=== PATIENT | male | born 1960 | race Two or more races ===

== ENCOUNTER → 2020-03-10 10:13 | Outpatient (BNVA) | payer MEDICARE, MEDICAID, SELFPAY | PROVIDERS: PCP Internal Medicine; Visit Provider Surgery | DX: Z85.038 Personal history of other malignant neoplasm of large intestine (principal) | CPT/HCPCS: 99212 ==

== ENCOUNTER 2020-05-19 09:41 | Outpatient (REF) | payer MEDICARE, MEDICAID, SELFPAY ==
[2020-05-19 10:44] LABS: Alanine Aminotransferase 31 U/L (0-40); Albumin Level 4.5 g/dL (3.5-5.0); Alkaline Phosphatase 68 U/L (39-117); Anion Gap 10 (12-20); Aspartate Amino Transferase 24 U/L (5-37); Blood Urea Nitrogen 15 mg/dL (9-16); Calcium 9.3 mg/dL (8.4-10.2); Carbon Dioxide 28 mmol/L (22-29); Chloride 105 mmol/L (96-108); Cholesterol 135 mg/dL; Estimated Glomerular Filt Rate > 60; Glucose Fasting 114 mg/dL (60-99); HDL Cholesterol 42 mg/dL; LDL Cholesterol Calculated 58 mg/dl; Potassium 3.9 mmol/L (3.3-5.1); Sodium 139 mmol/L (135-145); Total Protein 7.1 g/dL (6.5-8.0); Triglycerides 177 mg/dL
== END 2020-05-19 09:42 | disposition home or self-care (01) ==
LOC: HO.LAB 09:41
PROVIDERS: PCP Internal Medicine; Visit Provider Internal Medicine
DX: E78.00 Pure hypercholesterolemia, unspecified (principal); N52.9 Male erectile dysfunction, unspecified; I10 Essential (primary) hypertension
CPT/HCPCS: 36415; 80053; 80061

== ENCOUNTER 2020-08-28 09:11 | Outpatient (REF) | payer OTHER, SELFPAY ==
[2020-08-28 10:36] LABS: Alanine Aminotransferase 29 U/L (0-40); Albumin Level 4.4 g/dL (3.5-5.0); Alkaline Phosphatase 65 U/L (39-117); Anion Gap 12 (12-20); Aspartate Amino Transferase 22 U/L (5-37); Bilirubin Total 0.5 mg/dL (0.0-1.0); Blood Urea Nitrogen 18 mg/dL (9-16); Calcium 9.4 mg/dL (8.4-10.2); Carbon Dioxide 27 mmol/L (22-29); Chloride 106 mmol/L (96-108); Cholesterol 135 mg/dL; Estimated Glomerular Filt Rate > 60; Glucose Fasting 108 mg/dL (60-99); HDL Cholesterol 45 mg/dL; LDL Cholesterol Calculated 51 mg/dl; Potassium 4.3 mmol/L (3.3-5.1); Sodium 141 mmol/L (135-145); Total Protein 6.9 g/dL (6.5-8.0); Triglycerides 199 mg/dL
[2020-08-28 10:59] LABS: PSA,Total (Free>4and<10) 0.83 ng/mL (0.00-4.00)
== END 2020-08-28 09:12 | disposition home or self-care (01) ==
LOC: HO.LAB 09:11
PROVIDERS: PCP Internal Medicine; Visit Provider Internal Medicine
DX: Z12.5 Encounter for screening for malignant neoplasm of prostate (principal); E78.5 Hyperlipidemia, unspecified; I10 Essential (primary) hypertension
CPT/HCPCS: 36415; 80053; 80061; 84153

== ENCOUNTER → 2020-09-01 09:49 | Outpatient (BNV) | payer OTHER, SELFPAY | PROVIDERS: PCP Internal Medicine; Visit Provider Internal Medicine | DX: Z85.038 Personal history of other malignant neoplasm of large intestine (principal) | CPT/HCPCS: 99213 ==

== ENCOUNTER 2020-09-23 10:16 | Outpatient (REF) | payer OTHER, SELFPAY ==
[2020-09-27 13:26] LABS: Vitamin D 25-OH, D2 <4 ng/mL; Vitamin D 25-OH, D3 36 ng/mL; Vitamin D 25-OH, Total 36 ng/mL (30-100)
== END 2020-09-23 10:17 | disposition home or self-care (01) ==
LOC: HO.LAB 10:16
PROVIDERS: PCP Internal Medicine; Visit Provider Internal Medicine
DX: E55.9 Vitamin D deficiency, unspecified (principal)
CPT/HCPCS: 36415; 82306

== ENCOUNTER 2020-10-03 11:21 | Emergency (ER) | payer OTHER, SELFPAY ==
[2020-10-03 12:13] VITALS: BP 186/78; PULSE 78; RESP 17; TEMP 36.8; O2SAT 97; BMI 30.9
[2020-10-03 12:45] VITALS: BP 156/73; PULSE 74; RESP 18; TEMP 36.9; O2SAT 97
[2020-10-03 13:08] LABS: MANUAL DIFF FLAG NO
[2020-10-03 13:09] LABS: Basophils Percent Auto 0.3 % (0-2); Eosinophils Absolute Auto 0.1 X10*3/uL (0.0-0.4); Eosinophils Percent Auto 1.5 % (0-4); Hematocrit 38.3 % (42-52); Hemoglobin 13.5 g/dl (14.0-18.0); Imm Gran Abs Auto 0.01 X10*3/uL (0.00-0.03); Imm Gran Pct Auto 0.2 % (0.0-0.4); Lymphocytes Absolute Auto 1.5 X10*3/uL (1.2-4.9); Lymphocytes Percent Auto 24.6 % (20-40); Mean Corpuscular HGB Conc 35.2 g/dl (31.0-36.0); Mean Corpuscular Hemoglobin 32.5 pg (27.0-33.0); Mean Corpuscular Volume 92.1 fL (80-98); Mean Platelet Volume 8.9 fL (9.4-12.4); Monocytes Absolute Auto 0.7 X10*3/uL (0.1-1.2); Monocytes Percent Auto 10.7 % (2-11); Neutrophils Absolute Auto 3.9 X10*3/uL (2.0-8.3); Neutrophils Percent Auto 62.7 % (45-73); Platelet Count 200 X10*3/uL (160-400); Red Blood Count 4.16 X10*6/uL (4.60-5.80); Red Cell Distribution Width 11.5 % (11.0-16.0); White Blood Count 6.2 X10*3/uL (4.8-10.8)
[2020-10-03 13:18] LABS: Prothrombin Time 11.5 SEC (9.9-13.0)
[2020-10-03 13:22] LABS: D Dimer < 200 NG/ML; Partial Thromboplastin Time 32.1 SEC (24.1-38.0)
[2020-10-03 13:35] LABS: IDNOW Serial# 9DD0AD1C; Strep A Nucleic Acid Negative (Negative)
[2020-10-03 13:45] LABS: Alanine Aminotransferase 30 U/L (0-40); Albumin Level 4.3 g/dL (3.5-5.0); Alkaline Phosphatase 73 U/L (39-117); Anion Gap 15 (12-20); Aspartate Amino Transferase 22 U/L (5-37); Bilirubin Total 0.5 mg/dL (0.0-1.0); Blood Urea Nitrogen 16 mg/dL (9-16); C Reactive Protein 0.18 mg/dL (< or = 0.50); Calcium 9.4 mg/dL (8.4-10.2); Carbon Dioxide 25 mmol/L (22-29); Chloride 104 mmol/L (96-108); Creatinine Clr Calc Pharmacy 96.8; Estimated Glomerular Filt Rate > 60; Glucose Random 133 mg/dL (60-115); Lipase 67 U/L (8-78); Potassium 3.5 mmol/L (3.3-5.1); Sodium 140 mmol/L (135-145); Total Protein 6.9 g/dL (6.5-8.0)
--- NOTE | 2020-10-03 13:48 | ED.GENADULT ---
HPI - General Adult General Chief complaint: General Medical Stated complaint: blood in mouth Time Seen by Provider: 10/03/20 12:25 Source: patient Mode of arrival: ambulatory Limitations: no limitations History of Present Illness HPI narrative: 60-year-old male who presents emergency department for evaluation of spitting up blood. The patient states that over the past 2-3 days he has been spitting up small amounts of blood. He states that he has been doing this 5 to 6 times a day. The patient states that has a slight sore throat and a very dry mouth. Patient was started on cyclobenzaprine for a right arm injury and he states that he took this for approximately 3 days and then stop the medicine once he started spitting up blood. He states that he is feeling and fatigued. He denied fever, chills, chest pain, shortness of breath, cough, dyspnea on exertion, abdominal pain. He states that he has occasional heartburn like symptoms but has not had any recently. He denies any change in his bowel movements, he has not noticed any bright blood ride per rectum or dark stools. Denies easy bruisability, he has not had any bleeding from his gums. The patient has a history of colon cancer with tubular adenoma and sigmoid colon resection May 2015. Patient states he was experiencing fatigue and right arm weakness since receiving his [employer] COVID-19 vaccination in June 2020. He had a hematology evaluation Dr. Bess on 09/01/2020 with no evidence for anemia or hypothyroidism as the cause of his fatigue Related Data Previous Rx's Medication Instructions Recorded hydralazine 100 mg tablet 100 mg PO BID #180 tab 05/07/20 blood pressure test kit-large #1 ea 05/28/20 atorvastatin 20 mg tablet 20 mg PO DAILY #90 tab 06/02/20 hydrochlorothiazide 25 mg tablet 25 mg PO QAM #90 tab 06/02/20 losartan 100 mg tablet 100 mg PO DAILY #90 tab 06/02/20 aspirin 81 mg tablet,delayed 81 mg PO DAILY #90 tab 07/29/20 release tramadol 50 mg tablet 50 mg PO Q6H PRN 30 Days #120 tab 09/17/20 cyclobenzaprine 10 mg tablet 10 mg PO BEDTIME PRN 30 Days #30 09/23/20 tab Allergies Allergy/AdvReac Type Severity Reaction Status Date / Time acetaminophen [Tylenol] Allergy Intermediate itching Verified 10/03/20 12:13 ibuprofen Allergy Intermediate itching Verified 10/03/20 12:13 Review of Systems Review of Systems: Yes all other systems are reviewed and are negative [facility] Past Medical History [facility] Narrative: Social history: The patient stop smoking cigarettes in 2014. prior to that he smoked 1/3 pack of cigarettes per day times 40 years. He denies alcohol use. He denies drug use. Medical History Erectile dysfunction Essential hypertension Lumbar degenerative disc disease Medicare annual wellness visit, initial Pure hypercholesterolemia Surgical History History of back surgery History of colon cancer History of colonoscopy Family History Family History Father Myocardial infarction Mother Hypertension COPD (chronic obstructive pulmonary disease) Daughter Hypertension Heart problem Maternal Grandmother CAD (coronary artery disease) Stroke Paternal Grandfather Myocardial infarction Brother In good health Brother In good health Sister In good health Sister In good health Sister In good health Daughter In good health Daughter In good health Daughter In good health Social History Social History Housing: Apartment Alcohol intake: never Patient Tobacco Use Status: Former Tobacco user Tobacco use type: Cigarette e-Cigarette/Vaping Use: Never Used Second Hand Smoke Exposure: No Use of substances other than those prescribed or required for medical reasons: No Advance Directives: Yes Advance Directives Information Provided: Yes Advance Directives on File: No service: No Current occupational status: disabled Physical Exam Vital Signs: Vital Signs: Last Vital Signs Temp 98.4 F 10/03/20 12:45 Pulse 74 10/03/20 12:45 Resp 18 10/03/20 12:45 BP 156/73 H 10/03/20 12:45 Pulse Ox 97 10/03/20 12:45 Body Mass Index 30.9 Const: General: cooperative and healthy appearing Orientation/consciousness: oriented to person and oriented to place Limitations: no limitations HENMT: Head: Yes normal to inspection, Yes normocephalic and Yes atraumatic Ears: external ears normal General nose exam: Normal external nose present Face and sinus: Yes normal facial exam Mouth: Normal oral and palatal mucosa present Throat: Yes posterior oropharynx normal Eyes: Periorbital: periorbital findings normal Eyelids: Yes eyelids normal Conjunctivae: conjunctivae normal Sclerae: sclerae normal Corneas: corneas normal Pupils: Equal, round and reactive pupils present Direct Ophthalmoscopy: normal light reflex Neck: Neck: Yes full ROM, Yes no lymphadenopathy, Yes no meningeal signs, Yes trachea midline and Yes supple Chest: Chest palpation & inspection: normal inspection of the chest and normal palpation of entire chest wall Resp: Effort & Inspection: normal respiratory effort and able to speak in complete sentences Auscultation: clear to auscultation bilaterally Cardio: Rate: regular rate Rhythm: regular rhythm Heart sounds: S1 normal heart sound present, S2 normal heart sound present and no murmurs GI: Inspection: Yes normal to inspection Palpation (GI): Soft to palpation, nontender, no guarding, not rigid and No hepatosplenomegaly present : General: Yes no CVA tenderness Back/Spine/Pelvis: Back: no CVA tenderness Cervical Spine: normal cervical lordosis Thoracic/Lumbar Spine: thoracic and lumbar spine normal to inspection Skin: Lesions: no lesions Rashes: no rashes Wounds: no wounds Neuro: General: oriented to person, oriented to place and no meningeal signs Cranial nerves: Yes CN's II-XII intact bilaterally and Yes Equal, round and reactive pupils present Cognition (Neuro): normal cognition Motor exam (neuro): 5/5 motor strength present throughout Extrem: General: Yes normal to inspection and Yes full ROM Psych: Appearance: well kempt Mental Status: mental status grossly normal Speech and movement: Normal speech and movement present Affect: normal affect Attitude: cooperative Thought process: Normal thought process present Thought content: Normal thought content present Course Course Course Narrative: 60-year-old male who presents emergency department for evaluation of spitting up blood x2 days. 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 Patient was started on cyclobenzaprine recently and he stop this medicine 2 days prior when he started to cough of blood. Patient has had no other symptoms except for mild sore throat. He has not had any easy bruisability or bleeding from his gums. Patient's physical examination was unremarkable with no evidence of bruising or petechiae. I did order laboratory evaluation on this patient. 1359: The patient has mild anemia with an H&H of 13.5 and 38.3. Patient's white blood cell count was normal 6200 his platelet count was also normal at 2000. Coagulation studies including PT/INR, PTT and D-dimer were normal. The patient's comprehensive metabolic panel was normal. TSH was slightly low at 0.17 with a pending T4. At this time, I do not have a clear etiology for the patient's spitting up blood, I do not think it is related to cyclobenzaprine unless the cyclobenzaprine is causing him to have pharyngeal dryness which is then causing and a cough up blood. The patient's most likely source of esophagitis versus gastritis and I did discuss this with him. I will start him on Prilosec 20 mg once a day for 1 month. He will need to follow-up with his PCP for re-evaluation and to follow-up on his T4. The patient was given verbal and printed instructions prior to discharge. The patient was advised to follow-up with their PCP in 2 days and to return to the emergency department if their symptoms get worse or if they develop any new symptoms that are concerning to them. Medical Decision Making Lab Data Result diagrams: 10/03/20 13:00 10/03/20 13:00 Labs: Lab Results 10/03/20 10/03/20 10/03/20 Range/Units 13:00 13:00 13:00 WBC 6.2 (4.8-10.8) X10*3/uL RBC 4.16 L (4.60-5.80) X10*6/uL Hgb 13.5 L (14.0-18.0) g/dl Hct 38.3 L (42-52) % MCV 92.1 (80-98) fL MCH 32.5 (27.0-33.0) pg MCHC 35.2 (31.0-36.0) g/dl RDW 11.5 (11.0-16.0) % Plt Count 200 (160-400) X10*3/uL MPV 8.9 L (9.4-12.4) fL Immature Gran % (Auto) 0.2 (0.0-0.4) % Neut % (Auto) 62.7 (45-73) % Lymph % (Auto) 24.6 (20-40) % Kimble % (Auto) 10.7 (2-11) % Eos % (Auto) 1.5 (0-4) % Baso % (Auto) 0.3 (0-2) % Lymph # (Auto) 1.5 (1.2-4.9) X10*3/uL Kimble # (Auto) 0.7 (0.1-1.2) X10*3/uL Eos # (Auto) 0.1 (0.0-0.4) X10*3/uL Baso # (Auto) 0.0 (0.0-0.2) X10*3/uL Abs Immat Gran (auto) 0.01 (0.00-0.03) X10*3/uL Absolute Neuts (auto) 3.9 (2.0-8.3) X10*3/uL Absolute Nucleated RBC 0.000 (0.0-0.012) X10*3/uL Nucleated RBC % (auto) 0.0 (0.0-0.2) /100WBC PT 11.5 (9.9-13.0) SEC INR 1.0 (0.9-1.1) APTT 32.1 (24.1-38.0) SEC D-Dimer < 200 NG/ML Sodium 140 (135-145) mmol/L Potassium 3.5 (3.3-5.1) mmol/L Chloride 104 (96-108) mmol/L Carbon Dioxide 25 (22-29) mmol/L Anion Gap 15 (12-20) BUN 16 (9-16) mg/dL Creatinine 1.05 (0.5-1.4) mg/dL Estim Creat Clear Calc 96.8 Estimated GFR > 60 Random Glucose 133 H (60-115) mg/dL Calcium 9.4 (8.4-10.2) mg/dL Total Bilirubin 0.5 (0.0-1.0) mg/dL AST 22 (5-37) U/L ALT 30 (0-40) U/L Alkaline Phosphatase 73 (39-117) U/L C-Reactive Protein 0.18 (< or = 0.50) mg/dL Total Protein 6.9 (6.5-8.0) g/dL Albumin 4.3 (3.5-5.0) g/dL Lipase 67 (8-78) U/L S. pyogenes GrpA GARRETT (Negative) 10/03/20 Range/Units 13:22 WBC (4.8-10.8) X10*3/uL RBC (4.60-5.80) X10*6/uL Hgb (14.0-18.0) g/dl Hct (42-52) % MCV (80-98) fL MCH (27.0-33.0) pg MCHC (31.0-36.0) g/dl RDW (11.0-16.0) % Plt Count (160-400) X10*3/uL MPV (9.4-12.4) fL Immature Gran % (Auto) (0.0-0.4) % Neut % (Auto) (45-73) % Lymph % (Auto) (20-40) % Kimble % (Auto) (2-11) % Eos % (Auto) (0-4) % Baso % (Auto) (0-2) % Lymph # (Auto) (1.2-4.9) X10*3/uL Kimble # (Auto) (0.1-1.2) X10*3/uL Eos # (Auto) (0.0-0.4) X10*3/uL Baso # (Auto) (0.0-0.2) X10*3/uL Abs Immat Gran (auto) (0.00-0.03) X10*3/uL Absolute Neuts (auto) (2.0-8.3) X10*3/uL Absolute Nucleated RBC (0.0-0.012) X10*3/uL Nucleated RBC % (auto) (0.0-0.2) /100WBC PT (9.9-13.0) SEC INR (0.9-1.1) APTT (24.1-38.0) SEC D-Dimer NG/ML Sodium (135-145) mmol/L Potassium (3.3-5.1) mmol/L Chloride (96-108) mmol/L Carbon Dioxide (22-29) mmol/L Anion Gap (12-20) BUN (9-16) mg/dL Creatinine (0.5-1.4) mg/dL Estim Creat Clear Calc Estimated GFR Random Glucose (60-115) mg/dL Calcium (8.4-10.2) mg/dL Total Bilirubin (0.0-1.0) mg/dL AST (5-37) U/L ALT (0-40) U/L Alkaline Phosphatase (39-117) U/L C-Reactive Protein (< or = 0.50) mg/dL Total Protein (6.5-8.0) g/dL Albumin (3.5-5.0) g/dL Lipase (8-78) U/L S. pyogenes GrpA GARRETT Negative (Negative) Discharge Plan Discharge Clinical Impression: Hematemesis of unknown etiology Patient Disposition: Home, Self-Care Instructions: Hematemesis (ED) Additional Instructions: Your blood work was unremarkable except for a slightly low TSH (low TSH was suggest an overactive thyroid). Your T4 which is another thyroid test determine if her thyroid is under overactive is pending. He will need to follow-up to checked this result. I do not think that your thyroid is the cause for your spitting up blood or your fatigue but she need to discuss this with your doctor once the T4 result comes back. The rest of your blood work was normal. I believe that your spitting up blood is probably coming from either your esophagus (food tube) or stomach and this is called hematemesis which is most likely caused by too much stomach acid. Take Prilosec 20 mg pills, 1 pill daily for 1 month, this will shut off your acid production and let the inflammation in your GI tract heel. Do not take any aspirin, ibuprofen, Motrin, Advil, Aleve or naproxen while your on Prilosec. You can take Tylenol for pain. Follow-up with your doctor in 2 days. Please return to the emergency department if your symptoms get worse or if you develop any symptoms that are concerning to you. Prescriptions: No Action hydralazine 100 mg tablet 100 mg PO BID Qty: 180 RF: 2 hydrochlorothiazide 25 mg tablet 25 mg PO QAM Qty: 90 RF: 3 losartan 100 mg tablet 100 mg PO DAILY Qty: 90 RF: 3 atorvastatin 20 mg tablet 20 mg PO DAILY Qty: 90 RF: 3 aspirin 81 mg tablet,delayed release (DR/EC) 81 mg PO DAILY Qty: 90 RF: 3 tramadol 50 mg tablet 50 mg PO Q6H PRN (Reason: pain) 30 Days Qty: 120 RF: 0 cyclobenzaprine 10 mg tablet 10 mg PO BEDTIME PRN (Reason: muscle spasm) 30 Days Qty: 30 RF: 0 (DME) blood pressure test kit-large Kit See Rx Instructions .ROUTE .MEDSUPPLY Qty: 1 RF: 0
[2020-10-03 13:56] LABS: TSH reflex Free T4 0.17 uIU/mL (0.32-4.0)
[2020-10-03 13:57] LABS: Erythrocyte Sedimentation Rate 13 MM/HR (0-15)
[2020-10-03 14:36] LABS: Free T4 (Free Thyroxine) 0.92 ng/dL (0.71-1.85)
== END 2020-10-03 14:24 | disposition home or self-care (01) ==
PROVIDERS: Emergency Provider Emergency Medicine Emergency Medical Services; PCP Internal Medicine
DX: K92.0 Hematemesis (principal); D64.9 Anemia, unspecified; I10 Essential (primary) hypertension; Z79.82 Long term (current) use of aspirin; Z79.899 Other long term (current) drug therapy; Z85.038 Personal history of other malignant neoplasm of large intestine
CPT/HCPCS: 36415; 80053; 83690; 84439; 84443; 85025; 85379; 85610; 85652; 85730; 86140; 87651; 99283; 99284

== ENCOUNTER 2020-11-11 10:08 | Outpatient (REF) | payer OTHER, SELFPAY ==
[2020-11-11 12:24] LABS: Anion Gap 13 (12-20); Blood Urea Nitrogen 18 mg/dL (9-16); Calcium 9.7 mg/dL (8.4-10.2); Carbon Dioxide 28 mmol/L (22-29); Chloride 102 mmol/L (96-108); Estimated Glomerular Filt Rate > 60; Glucose Random 158 mg/dL (60-115); Potassium 4.3 mmol/L (3.3-5.1); Sodium 139 mmol/L (135-145)
== END 2020-11-11 10:09 | disposition home or self-care (01) ==
LOC: HO.CT 10:08
PROVIDERS: Visit Provider Physician Assistant
DX: Z01.812 Encounter for preprocedural laboratory examination (principal); R04.2 Hemoptysis
CPT/HCPCS: 36415; 80048

== ENCOUNTER 2020-11-13 07:51 | Outpatient (REF) | payer OTHER, SELFPAY ==
--- NOTE | ~2020-11-13 | CT_ITS ---
EXAMINATION: CT CHEST WITH CONTRAST CLINICAL INFORMATION: Hemoptysis. COMPARISON: CT chest dated 02/03/2017. TECHNIQUE: Multidetector volumetric CT imaging of the chest was obtained after the administration of 65 mL of Omnipaque 350 intravenous contrast without immediate adverse reactions. Axial MIP volume rendering provided. Sagittal and coronal reformatted images were obtained. This CT examination was performed using dose optimization techniques as appropriate, variously including the following: *Automated exposure control *Adjustment of mA and/or kV according to patient size (this includes techniques or standardized protocols for targeted exams where dose is matched to indication/reason for exam; i.e. extremities or head) *Use of iterative reconstruction technique DLP: 193 mGy-cm. FINDINGS: PHOTOGRAPHER: Unremarkable. LUNGS: Biapical blebs are redemonstrated. No new pulmonary nodule, mass, or airspace consolidation. Stable calcified granuloma within the left upper lobe. The central airways are patent. MEDIASTINUM: No cardiomegaly. No pericardial effusion. No thoracic aortic dilatation or dissection. Unremarkable central pulmonary arteries. Stable right hilar and prevascular lymph nodes. No new or increasing lymphadenopathy. PLEURA: There is no pleural effusion. No pleural mass or thickening. AXILLA: No lymphadenopathy. UPPER ABDOMEN: Hepatic steatosis. Right hepatic hypodensity, unchanged. Otherwise, the visualized upper abdominal structures are unremarkable. OSSEOUS STRUCTURES: Unremarkable. CT/CT chest w con IMPRESSION: 1. Biapical pulmonary blebs are unchanged. Stable left upper lobe calcified granuloma. No new urinary nodule, mass, or airspace consolidation. 2. No new or increasing lymphadenopathy. 3. Hepatic steatosis.
[2020-11-13] MEDS: iohexoL 350 MG/ML 100 ML INFUS..BTL IV (08:37)
== END 2020-11-13 07:52 | disposition home or self-care (01) ==
LOC: HO.CT 07:51
PROVIDERS: Visit Provider Physician Assistant
DX: R04.2 Hemoptysis (principal)
CPT/HCPCS: 71260; Q9967

== ENCOUNTER → 2020-12-23 09:20 | Outpatient (BNVA) | payer OTHER, SELFPAY | PROVIDERS: PCP Internal Medicine; Referring Provider Internal Medicine; Visit Provider Internal Medicine | DX: I77.810 Thoracic aortic ectasia (principal); I51.7 Cardiomegaly; I10 Essential (primary) hypertension | CPT/HCPCS: 93005; 99212 ==

== ENCOUNTER 2021-01-08 08:21 | Day surgery (SDC) | payer OTHER, SELFPAY ==
[2021-01-04 15:33] VITALS: BMI 30.7
--- NOTE | 2021-01-07 10:42 | HO.ANESPROP2 ---
Documented by User: Maira Mullins NP 01/07/21 10:44 HPI - Anesthesia Eval Consult details Narrative: 60yo M for Colonoscopy Stable at yearly cardiac office visit 12/23/20 [facility] Active Problems Active Problems: All Active Problems (Updated 01/04/21 @ 15:35 by Kera Fischer, LINDA) Colon cancer (Chronic) Hemoptysis (Acute) Hematemesis (Acute) Pre-procedure lab exam (Acute) Essential (primary) hypertension (Acute) Ascending aorta dilatation (Acute) LVH (left ventricular hypertrophy) (Acute) Medicare annual wellness visit, initial (Acute) Lumbar degenerative disc disease (Acute) Pure hypercholesterolemia (Acute) Erectile dysfunction (Acute) Essential hypertension (Acute) Past Medical History Medical History COVID-19 vaccine series completed Erectile dysfunction Essential hypertension GERD (gastroesophageal reflux disease) Lumbar degenerative disc disease Medicare annual wellness visit, initial Pure hypercholesterolemia Family History Family History Father Myocardial infarction Mother Hypertension COPD (chronic obstructive pulmonary disease) Daughter Hypertension Heart problem Maternal Grandmother CAD (coronary artery disease) Stroke Paternal Grandfather Myocardial infarction Brother In good health Brother In good health Sister In good health Sister In good health Sister In good health Daughter In good health Daughter In good health Daughter In good health Surgical History Surgical History History of back surgery History of colon cancer History of colon resection History of colonoscopy Social History Social History Housing: Apartment Are you a primary acute care occupational therapist to a significant other at home: No Do you presently have visiting nurse or other home services: No Alcohol intake: never Patient Tobacco Use Status: Former Tobacco user Quit Date: 2014 Tobacco use type: Cigarette e-Cigarette/Vaping Use: Never Used Second Hand Smoke Exposure: No Use of substances other than those prescribed or required for medical reasons: No Have you been hit, kicked, punched, or otherwise hurt by someone within the past year? If so, by whom?: No Are you DNR?: No Advance Directives: No Advance Directives Information Provided: No Advance Directives on File: No Recently lost weight without trying: No Eating poorly because of decreased appetite: No Nutrition Risks: No Nutritional Risk service: No Current occupational status: disabled Meds Allergies Allergy/AdvReac Type Severity Reaction Status Date / Time acetaminophen [Tylenol] Allergy Intermediate itching Verified 10/12/20 15:40 ibuprofen Allergy Intermediate itching Verified 10/12/20 15:40 Home Medications Medication Instructions Recorded Confirmed Last Taken Type aspirin 81 mg tablet,delayed 81 mg PO DAILY 12/23/20 01/04/21 Unknown History release zimffzadaidd-If-bhba-minerals 18 1 tab PO DAILY 12/23/20 01/04/21 Unknown History mg-0.4 mg tablet (Maximum Daily Multivitamin) vitamin E 200 unit capsule 200 unit PO DAILY 12/23/20 01/04/21 Unknown History Exam Exam Date and Time: January 07, 2021 1042 Height,Weight and Vital Signs: Height 6 ft 1 in Weight 105.687 kg Pertinent Lab Results Pertinent Lab Results: Laboratory Tests 10/03/20 11/11/20 13:00 10:32 WBC 6.2 Hgb 13.5 L Hct 38.3 L Plt Count 200 Sodium 139 Potassium 4.3 D Chloride 102 Carbon Dioxide 28 BUN 18 H Creatinine 1.10 Narrative Narrative: EKG 12/2020 sinus rhythm at 79/Min; cannot exclude old inferior infarct; normal ID/QTc Echo 12/2019 Nml LV systolic function with moderate LVH with Grade 1 DD Nml cardiac valve doppler Mild dilated ascending aorta No gross pericardial effusion Assessment and Plan Assessment Anesthesia Assessment: Chart Reviewed Documented by User: Alexa Mccracken MD 01/08/21 08:55 [facility] Past Medical History Medical History COVID-19 vaccine series completed Erectile dysfunction Essential hypertension GERD (gastroesophageal reflux disease) Lumbar degenerative disc disease Medicare annual wellness visit, initial Pure hypercholesterolemia Family History Family History Father Myocardial infarction Mother Hypertension COPD (chronic obstructive pulmonary disease) Daughter Hypertension Heart problem Maternal Grandmother CAD (coronary artery disease) Stroke Paternal Grandfather Myocardial infarction Brother In good health Brother In good health Sister In good health Sister In good health Sister In good health Daughter In good health Daughter In good health Daughter In good health Family history of problems with anesthesia: No Surgical History Surgical History History of back surgery History of colon cancer History of colon resection History of colonoscopy History of Problems with Anesthesia: No Social History Social History Housing: Apartment Are you a primary acute care occupational therapist to a significant other at home: No Do you presently have visiting nurse or other home services: No Alcohol intake: never Patient Tobacco Use Status: Former Tobacco user Quit Date: 2014 Tobacco use type: Cigarette e-Cigarette/Vaping Use: Never Used Second Hand Smoke Exposure: No Use of substances other than those prescribed or required for medical reasons: No Have you been hit, kicked, punched, or otherwise hurt by someone within the past year? If so, by whom?: No Are you DNR?: No Advance Directives: No Advance Directives Information Provided: No Advance Directives on File: No Recently lost weight without trying: No Eating poorly because of decreased appetite: No Nutrition Risks: No Nutritional Risk service: No Current occupational status: disabled Meds Allergies Allergy/AdvReac Type Severity Reaction Status Date / Time acetaminophen [Tylenol] Allergy Intermediate itching Verified 10/12/20 15:40 ibuprofen Allergy Intermediate itching Verified 10/12/20 15:40 Home Medications Medication Instructions Recorded Confirmed Last Taken Type aspirin 81 mg tablet,delayed 81 mg PO DAILY 12/23/20 01/04/21 Unknown History release urjzkgdpclfz-Ww-pbml-minerals 18 1 tab PO DAILY 12/23/20 01/04/21 Unknown History mg-0.4 mg tablet (Maximum Daily Multivitamin) vitamin E 200 unit capsule 200 unit PO DAILY 12/23/20 01/04/21 Unknown History Exam Airway Mallampati Class: II TM Dist: >3cm Neck ROM: Full Assessment and Plan Assessment Anesthesia Assessment: Anesthesia Plan Discussed Final Anesthetic Review Family History of Problems with Anesthesia: No History of Problems with Anesthesia: No NPO: Yes ASA Class: III Final Preanesthetic Review: No Changes in Pt Med Stat, Meds/Allgs Chart Reviewed, Consent Obtained/Reviewed and Anes Risks/Benef Reviewed Patient Risk: Intermediate Procedure Risk: Low Assessment/Block/Sedation in SS: Assess/Block/Sedation-SS Anesthetic Plan Anesthetic Plan: MAC: Disposition: Standard PACU
[2021-01-08 09:07] VITALS: BP 150/68; PULSE 66; RESP 15; TEMP 36.9; O2SAT 97; BMI 30.9
[2021-01-08] MEDS: Lactated Ringers 1,000 ML 100 ML IVCONT (09:21)
[2021-01-08 10:14] VITALS: BP 107/51; PULSE 71; RESP 16; TEMP 36.5; O2SAT 98
--- NOTE | 2021-01-08 10:16 | P.BOP_ITS ---
Brief Operative Note Date of Service: 01/08/21 Pre-op diagnosis: Screening Post-op diagnosis: other (Colon polyp) Procedure: Colonoscopy to cecum with snare polypectomy Surgeon: Handy Mendez Anesthesia: MAC Was an Figure Refinisher And Repairer used for this Procedure?: No Estimated blood loss (mL): 3.0 Pathology: other (A. Transverse colon) Condition: stable Disposition: PACU
[2021-01-08 10:28] VITALS: BP 114/68; PULSE 74; RESP 16; TEMP 36.5; O2SAT 96
--- NOTE | 2021-01-08 11:47 | OP_ITS ---
SURGEON: Handy Mendez MD INDICATIONS: The patient presents for followup of colorectal cancer screening, personal history of colon cancer, and personal history of colon polyps. Full consent has been obtained from him for this, including risks of bleeding and perforation. PREOPERATIVE DIAGNOSIS: POSTOPERATIVE DIAGNOSIS: PROCEDURE PERFORMED: Colonoscopy to the cecum with snare polypectomy. ESTIMATED BLOOD LOSS: COMPLICATIONS: ANESTHESIA: Monitored anesthesia care. ASSISTANTS: SPECIMENS: PREOPERATIVE DIAGNOSES: Colorectal cancer screening, personal history of colon cancer, personal history of tubular adenoma of the colon. POSTOPERATIVE DIAGNOSES: Colorectal cancer screening, personal history of colon cancer, personal history of tubular adenoma of the colon, colon polyp, diverticulosis, normal anastomosis, internal hemorrhoids. DESCRIPTION OF PROCEDURE: The patient was placed in the left lateral decubitus position. The digital rectal exam revealed no abnormalities. The Olympus video pediatric colonoscope was entered into the rectum and advanced easily to the cecum. Once in the cecum, I did identify normal-appearing cecal pouch with appendiceal orifice and a normal-appearing ileocecal valve. The entire cecum and ileocecal valve appeared normal, although there were several diverticula noted in the cecum. The scope was slowly withdrawn assessing all mucosal surfaces carefully. Preparation was excellent. There was a mild amount of diverticulosis in the ascending colon. There was a moderate amount of diverticulosis noted in the descending colon and proximal to the anastomosis. In the transverse colon, was an approximately 5 mm polyp, which was snared and removed with a cold snare. There was no sign of any residual polyp nor bleeding. I did not visualize any other polyps, colitis, nor angiodysplasia. The anastomosis appeared normal at 20 cm. In the rectum, scope was retroflexed visualizing internal hemorrhoids, but no other pathology. The rectal mucosa appeared normal. The scope was straightened and withdrawn from the patient. He tolerated the procedure well and was returned to the recovery area in stable condition. IMPRESSION: 1. Colon polyp, status post snare polypectomy. 2. Diverticulosis. 3. Internal hemorrhoids. 4. Normal anastomosis. PLAN: The results of the pathology will be checked. I would recommend a repeat colonoscopy in 3 years for further screening and surveillance. He was advised to resume his aspirin in 72 hours. MD KIAN Levi/YOHANNES / [id number]
== END 2021-01-08 11:57 | disposition home or self-care (01) ==
PROVIDERS: PCP Internal Medicine; Visit Provider Internal Medicine
PROC: 0DJD8ZZ Inspection of Lower Intestinal Tract, Via Natural or Artificial Opening Endoscopic (ICD-10-PCS; CPT 45378; principal; 2021-01-08 09:20)
DX: Z12.11 Encounter for screening for malignant neoplasm of colon (principal); D12.3 Benign neoplasm of transverse colon; K57.30 Diverticulosis of large intestine without perforation or abscess without bleeding; K64.8 Other hemorrhoids; Z85.038 Personal history of other malignant neoplasm of large intestine; Z86.010 Personal history of colon polyps; I11.9 Hypertensive heart disease without heart failure; Z79.899 Other long term (current) drug therapy; Z98.0 Intestinal bypass and anastomosis status
CPT/HCPCS: 45385; 88305

== ENCOUNTER 2021-02-22 12:43 | Outpatient (REF) | payer OTHER, SELFPAY ==
--- NOTE | 2021-02-22 16:34 | MHC.AU.HAS ---
Hearing Aid Evaluation Date of Visit: 02/22/21 Historical Information: Description of Hearing: Normal hearing from 250-1500 Hz, steeply sloping to a moderate to severe sensorineural hearing loss from 6567-1548 Hz bilaterally. Current personal amplification information, if applicable: Patient reports that he had ANKITA style hearing aids from [employer] Summary: Mr. Jose Luis Ocampo was referred to us by Dr. Noguera of [facility], who provided medical clearance for hearing aid use. Binaural amplification was recommended to help facilitate improved communication. He previously has used ANKITA style aids, and states he was unhappy with them and would like to try a small ITE style hearing aid. Advised that ANKITA are recommended given his normal low-frequency hearing, but we can try the ITE style to see how he does. Hearing Aid Prescription: Based on the individual?s shared listening needs, communication environments, dexterity, desire for connectivity, and personal preferences, the following prescription for amplification has been made: Right ear: Diesel Roller Operator: M-KOPA Model: Evolv AI 1600 CIC Battery Size: 312 Color: Light Brown Left ear: Left ear prescription to be same as Right Hearing Aid above: Diesel Roller Operator: Merry Model: Evolv AI 1600 CIC Battery Size: 312 Color: Light Brown Plan of Care: Earmold Impressions Taken. Prior authorization to be requested. Hearing Instrument Fitting to be scheduled when materials arrive Primary Diagnosis: H90.3 Bilateral Sensorineural Hearing Loss Signature: Provider: Lulu Belcher, CCC-A
== END 2021-02-22 12:44 | disposition home or self-care (01) ==
LOC: HO.HAP 12:43
PROVIDERS: Visit Provider Internal Medicine
DX: Z46.1 Encounter for fitting and adjustment of hearing aid (principal); H90.3 Sensorineural hearing loss, bilateral
CPT/HCPCS: 92591; V5275

== ENCOUNTER 2021-02-23 10:08 | Outpatient (REF) | payer OTHER, SELFPAY ==
[2021-02-23 11:13] LABS: Alanine Aminotransferase 37 U/L (0-40); Albumin Level 4.5 g/dL (3.5-5.0); Alkaline Phosphatase 73 U/L (39-117); Anion Gap 13 (12-20); Aspartate Amino Transferase 27 U/L (5-37); Bilirubin Total 0.7 mg/dL (0.0-1.0); Blood Urea Nitrogen 18 mg/dL (9-16); Calcium 9.9 mg/dL (8.4-10.2); Carbon Dioxide 29 mmol/L (22-29); Chloride 104 mmol/L (96-108); Cholesterol 145 mg/dL; Estimated Glomerular Filt Rate > 60; Glucose Fasting 117 mg/dL (60-99); HDL Cholesterol 44 mg/dL; LDL Cholesterol Calculated 57 mg/dl; Potassium 3.9 mmol/L (3.3-5.1); Sodium 142 mmol/L (135-145); Total Protein 7.5 g/dL (6.5-8.0); Triglycerides 222 mg/dL
[2021-02-23 11:34] LABS: Free T4 (Free Thyroxine) 0.93 ng/dL (0.71-1.85); Thyroid Stimulating Hormone 0.62 uIU/mL (0.32-4.0)
[2021-02-27 01:36] LABS: Thyroglobulin Antibodies <1 IU/mL (< or = 1); Thyroid Peroxidase Antibodies <1 IU/mL (<9)
== END 2021-02-23 10:09 | disposition home or self-care (01) ==
LOC: HO.LAB 10:08
PROVIDERS: PCP Internal Medicine; Visit Provider Internal Medicine
DX: I10 Essential (primary) hypertension (principal); R79.89 Other specified abnormal findings of blood chemistry; E78.5 Hyperlipidemia, unspecified
CPT/HCPCS: 36415; 80053; 80061; 84439; 84443; 86376; 86800

== ENCOUNTER → 2021-03-10 08:57 | Outpatient (REF) | payer OTHER, SELFPAY ==
--- NOTE | 2021-03-10 09:02 | CA_ITS ---
Transthoracic Echocardiogram Patient (Last, First, Middle): Leandro Rodríguez M Gender: Male Date of : 1960 Age: 60 Procedure Date: 03/10/2021 Procedure Type: Transthoracic Echocardiogram Location: OP Height: 185.42 cm Weight: 106.6 kg BSA: 2.30 m2 Heart Rate: bpm BP: 110 / 80 mmHg Car Barn Laborer: AYESHA Melissa MD: Wilbert Varela MD Capacitor Inspector: Derek Knox MD Symptoms: I77.810 - Thoracic aortic ectasia Study Quality: Fair ECG Rhythm: Sinus Conclusions: - 1. Normal LV systolic function with grade 1 diastolic dysfunction 2. Mildly dilated ascending aorta at about 4 cm 3. Normal cardiac valvular 4. Normal RV systolic pressure 5. No pericardial effusion Findings Left Ventricle Normal left ventricular size, thickness, and systolic function. The visually estimated ejection fraction is between 60-65%. Spectral Doppler is indicative of an impaired relaxation filling pattern. E/E prime ratio is <8, consistent with normal filling pressures. Evidence suggests grade I (mild) diastolic dysfunction. Right Ventricle Normal right ventricular cavity size and systolic function. Atria The left atrium is normal in size. Interatrial shunt cannot be excluded. The right atrium was not well visualized. Aortic Valve Normal aortic valve structure and function. There is no aortic valve stenosis. There is no aortic valve regurgitation. Mitral Valve Normal mitral valve structure and function. There is trace mitral valve regurgitation. There is no mitral valve stenosis. Pulmonic Valve The pulmonic valve was not well visualized. Tricuspid Valve Likely normal tricuspid valve structure and function. There is mild tricuspid valve regurgitation. The right ventricular systolic pressure is normal. The right ventricular systolic pressure is 26 mmHg. Normal right atrial pressure. There is no evidence of pulmonary hypertension. Great Vessels The pulmonary artery was not well visualized. There is mild dilatation of the ascending aorta measuring 4.00 cm. Venous The inferior vena cava is normal in size and collapses greater than 50% with inspiration. Pericardium/Pleural There is no evidence of pericardial effusion. Prior Study Comparison No significant change compared to prior study dated: 12/12/2019. Measurements 2D Linear Measurements IVSd: 0.99 0.6-0.9/0.6-1.0 cm LVIDd: 5.52 3.9-5.3/4.2-5.9 cm LVIDd Index: 2.40 2.4-3.2/2.2-3.1 cm/m2 LVIDs: 3.84 2.0-3.6 cm LVPWd: 0.86 0.7-1.1 cm Ao Root: 3.60 2.1-3.5 cm LA Diam: 3.30 2.7-3.8/3.0-4.0 cm LAIDs Index: 1.43 1.5-2.3 cm/m2 LV Mass: 242.59 67-162/88-224 g LV Mass Index: 105.47 43-95/49-115 g/m2 LVOT Diam: 2.60 3.0+(-)1.3 cm 2D Systolic Function EF 4C: 60.10 >55% EF 2C: 66.60 >55% EF BiP: 62.30 >55% Mitral Valve MV Pk E: 0.61 MV PK A: 0.67 MV Decel Time: 327.00 E/A: 0.90 E'Lateral: 11.90 E'Medial: 7.40 E/E' Med: 8.20 E/E' Lat: 5.10 PHT: 96.00 MVA PHT: 2.29 Decel [place]: 1.85 Aortic Valve AoV Pk Bob: 1.59 AoV Mn Bob: 1.19 AoV VTI: 0.28 AoV Pk Grad: 10.00 Aov Mn Grad: 6.00 NIKI Cont.VTI: 4.19 LVOT LVOT Pk Bob: 1.16 LVOT Mn Bob: 0.73 LVOT VTI: 0.22 LVOT Pk Grad: 5.00 LVOT Mn Grad: 2.00 LVOT Diam: 2.60 LVOT Area: 5.31 Diastolic Function MV Pk E: 0.61 MV Pk A: 0.67 E/A: 0.90 E'Medial: 7.40 E/E' Med: 8.20 E' Laterial: 11.90 E/E' Lat: 5.10 Right Ventricle TAPSE (mm): 1.94 TVS' Bob: 14.40 Tricuspid Valve TR Pk Bob: 2.38 TR Pk Grad: 23.00 RA Press: 3.00 RVSP: 26.00 Great Vessels Aorta Ao Root-2D: 3.60 2.0-3.7 cm Ao Asc: 4.00 2.1-3.4 cm Ao Arch: 2.60 Updated in Other Vendor System with Status of Final Derek Knox MD electronically signed on 03/10/2021 2:43:33 PM with status of Final
== END ==
LOC: HO.CARD 08:57
PROVIDERS: PCP Internal Medicine; Visit Provider Internal Medicine
DX: I77.810 Thoracic aortic ectasia (principal)
CPT/HCPCS: 93306

== ENCOUNTER 2021-03-15 09:47 | Outpatient (REF) | payer OTHER, SELFPAY | END 2021-03-15 09:48 | disposition home or self-care (01) | LOC: HO.HAP 09:47 | PROVIDERS: PCP Internal Medicine; Visit Provider Otolaryngology | DX: Z46.1 Encounter for fitting and adjustment of hearing aid (principal); H90.3 Sensorineural hearing loss, bilateral | CPT/HCPCS: V5011; V5020; V5160; V5260; V5266 ==

== ENCOUNTER 2021-03-18 16:16 | Outpatient (REF) | payer OTHER, SELFPAY | END 2021-03-18 16:17 | disposition home or self-care (01) | LOC: HO.HAP 16:16 | PROVIDERS: Visit Provider Internal Medicine | DX: Z13.89 Encounter for screening for other disorder (principal) ==

== ENCOUNTER 2021-03-22 13:17 | Outpatient (REF) | payer OTHER, SELFPAY | END 2021-03-22 13:18 | disposition home or self-care (01) | LOC: HO.HAP 13:17 | PROVIDERS: Visit Provider Internal Medicine | DX: I10 Essential (primary) hypertension (principal); I51.7 Cardiomegaly; I77.810 Thoracic aortic ectasia; Z79.899 Other long term (current) drug therapy; Z87.891 Personal history of nicotine dependence | CPT/HCPCS: 99212 ==

== ENCOUNTER 2021-04-08 15:04 | Outpatient (REF) | payer OTHER, SELFPAY | END 2021-04-08 15:05 | disposition home or self-care (01) | LOC: HO.HAP 15:04 | PROVIDERS: Visit Provider Internal Medicine | DX: Z13.89 Encounter for screening for other disorder (principal) ==

== ENCOUNTER 2021-04-18 16:00 | Emergency (ER) | payer OTHER, SELFPAY ==
--- NOTE | ~2021-04-18 | CT_ITS ---
EXAMINATION: CT HEAD WITHOUT CONTRAST CLINICAL INFORMATION: Headache, hypertension COMPARISON: None TECHNIQUE: Contiguous axial imaging was performed from the skull base to vertex without intravenous administration of contrast. This CT examination was performed using dose optimization techniques as appropriate, variously including the following: *Automated exposure control *Adjustment of mA and/or kV according to patient size (this includes techniques or standardized protocols for targeted exams where dose is matched to indication/reason for exam; i.e. extremities or head) *Use of iterative reconstruction technique DLP: 784 mGy-cm FINDINGS: There is no evidence of acute intracranial hemorrhage or territorial infarction. No abnormal mass effect or midline shift is seen. Morton to white matter differentiation is well preserved. No extra-axial fluid collections are identified. The ventricles are normal in size. Findings suggest mild scattered white matter ischemic change. The osseous structures and soft tissues are normal. The mastoid air cells and visualized portions of the paranasal sinuses are well aerated. CT/CT head/brain wo con IMPRESSION: No acute intracranial pathology.
[2021-04-18 16:10] VITALS: BP 183/89; PULSE 67; RESP 19; O2SAT 99; BMI 31.4
--- NOTE | 2021-04-18 16:24 | ED.GENADULT ---
HPI - General Adult General Chief complaint: General Medical Stated complaint: HEADACHE, HYPERTENSION Time Seen by Provider: 04/18/21 16:13 Source: patient Limitations: no limitations History of Present Illness HPI narrative: This is a 60-year-old male with history of hypertension and what he describes as a small brain hemorrhage a few years ago when he was in [place] related to high blood pressure, who complains of a posterior headache that began this morning around 930. Patient had taken his blood pressure medicine, but his blood pressure seemed to remain elevated and the headache persisted. Denies any nausea vomiting, visual change, chest pain or shortness of breath, numbness or weakness in his face, arms, legs, trouble with speech or balance. Patient is on losartan 100 mg once a day, hydralazine 100 mg twice a day, hydrochlorothiazide 25 mg daily. He states his headache is dull, posterior, 8/10 in severity. Related Data Home Medications Medication Instructions Recorded Confirmed aspirin 81 mg tablet,delayed 81 mg PO DAILY 12/23/20 03/22/21 release [id number]-Dw-qfij-minerals 18 1 tab PO DAILY 12/23/20 03/22/21 mg-0.4 mg tablet (Maximum Daily Multivitamin) vitamin E 200 unit capsule 200 unit PO DAILY 12/23/20 03/22/21 Previous Rx's Medication Instructions Recorded blood pressure test kit-large #1 ea 05/28/20 atorvastatin 20 mg tablet 20 mg PO DAILY #90 tab 06/02/20 hydrochlorothiazide 25 mg tablet 25 mg PO QAM #90 tab 06/02/20 losartan 100 mg tablet 100 mg PO DAILY #90 tab 06/02/20 omeprazole magnesium 20 mg 20 mg PO DAILY #30 tab 10/12/20 tablet,delayed release (Prilosec OTC) tadalafil 20 mg tablet (Cialis) 20 mg PO DAILY PRN 90 Days #90 tab 12/29/20 pantoprazole 20 mg tablet,delayed 20 mg PO DAILY #30 tab 02/06/21 release hydralazine 100 mg tablet 100 mg PO BID #180 tab 03/08/21 tramadol 50 mg tablet 50 mg PO Q6H PRN 30 Days #120 tab 03/22/21 cyclobenzaprine 10 mg tablet 10 mg PO BEDTIME PRN 30 Days #30 04/07/21 tab Allergies Allergy/AdvReac Type Severity Reaction Status Date / Time acetaminophen [Tylenol] Allergy Intermediate itching Verified 03/22/21 14:02 ibuprofen Allergy Intermediate itching Verified 03/22/21 14:02 Review of Systems Review of Systems: Yes all other systems are reviewed and are negative Constitutional: Constitutional: Reports as per HPI, Denies fever(s) and Reports headache(s) Eyes: Eyes: Reports as per HPI and Reports no additional eye complaints ENT: Reports system reviewed and no additional complaints, except as documented, Reports as per HPI, Reports headache(s), Denies nasal congestion, Denies nasal discharge and Denies sore throat Cardiovascular: Cardiovascular: Reports as per HPI, Denies chest pain and Denies dyspnea Respiratory: Respiratory: Reports as per HPI, Denies cough and Denies dyspnea Gastrointestinal: Gastrointestinal: Reports as per HPI, Denies abdominal pain, Denies diarrhea and Denies vomiting Genitourinary: Genitourinary: Reports as per HPI, Denies hematuria, Denies dysuria and Denies urinary frequency Musculoskeletal: Musculoskeletal: Reports no additional musculoskeletal complaints and Denies numbness Integumentary/Breasts: Skin/Breast: Reports as per HPI and Denies rash Neurologic: Reports as per HPI, Reports headache(s), Denies focal weakness, Denies numbness and Denies Sensory deficit (Neuro) Psychiatric: Psychiatric: Reports no additional psychiatric complaints and Reports as per HPI Endocrine: Endocrine: Reports no additional endocrine complaints and Reports as per HPI Hematologic/Lymphatic: Hematologic/Lymphatic: Reports no additional hematologic/lymphatic complaints, Reports as per HPI and Reports other (No peripheral edema) [facility] Past Medical History Medical History (Updated 04/18/21 @ 17:38 by Demetrius Mtz MD) COVID-19 vaccine series completed Erectile dysfunction Essential hypertension GERD (gastroesophageal reflux disease) Low TSH level Lumbar degenerative disc disease Medicare annual wellness visit, initial Pure hypercholesterolemia Surgical History History of back surgery History of colon cancer History of colon resection History of colonoscopy Family History Family History Father Myocardial infarction Mother Hypertension COPD (chronic obstructive pulmonary disease) Daughter Hypertension Heart problem Maternal Grandmother CAD (coronary artery disease) Stroke Paternal Grandfather Myocardial infarction Brother In good health Brother In good health Sister In good health Sister In good health Sister In good health Daughter In good health Daughter In good health Daughter In good health Social History Social History Housing: Apartment Are you a primary career law clerk to a significant other at home: No Do you presently have visiting nurse or other home services: No Alcohol intake: never Patient Tobacco Use Status: Former Tobacco user Quit Date: 2014 Tobacco use type: Cigarette e-Cigarette/Vaping Use: Never Used Second Hand Smoke Exposure: No Advance Directives: No Advance Directives Information Provided: Yes service: No Current occupational status: disabled Physical Exam Vital Signs: Vital Signs: Last Vital Signs Pulse 66 04/18/21 16:47 Resp 19 04/18/21 16:10 BP 154/79 H 04/18/21 16:47 Pulse Ox 96 04/18/21 16:47 BMI result Body Mass Index 31.4 Const: General: cooperative, no acute distress and alert Orientation/consciousness: patient oriented x3 HENMT: Head: Yes normal to inspection Eyes: General: appearance normal, both eyes and all related structures Eyelids: Yes eyelids normal Conjunctivae: conjunctivae normal Pupils: Equal, round and reactive pupils present Neck: Neck: Yes normal visual inspection and Yes supple Chest: Chest palpation & inspection: normal inspection of the chest Resp: Effort & Inspection: normal respiratory effort Auscultation: clear to auscultation bilaterally Cardio: Rate: regular rate Rhythm: regular rhythm Heart sounds: S1 normal heart sound present, S2 normal heart sound present, no gallops, no murmurs and no rubs GI: Palpation (GI): Soft to palpation, nontender and Other GI palpation findings present (Non-distended) Auscultation: normal bowel sounds Skin: General skin exam: no rashes or lesions noted Neuro: General: patient oriented x3, no focal motor deficits and CN's II-XI intact bilaterally Cranial nerves: Yes Equal, round and reactive pupils present Cognition (Neuro): normal cognition Motor exam (neuro): 5/5 motor strength present throughout Sensory Exam: No Sensory deficit (Neuro) Extrem: General: Yes normal to inspection and Yes no pedal edema Psych: Appearance: grossly normal Affect: normal affect Medical Decision Making MDM Narrative Medical decision making narrative: Patient with hypertension, compliant with medications, had a headache this morning which persisted, as well as persistent moderate hypertension. Patient feels better after labetalol and 0.5 mg of Dilaudid. Blood pressure improved after medication. CT scan of the brain showed no evidence hemorrhage. Patient is safe for outpatient follow-up. Critical care time for this life-threatening illness exclusive of all other billable procedures was approximately 35 minutes including initial evaluation of the patient, ordering tests, x-ray interpretation, EKG interpretation, medical consultation, documentation, reevaluation. Lab Data Lab results reviewed: Yes I reviewed the patient's lab results. Result diagrams: 04/18/21 16:26 04/18/21 16:26 Labs: Lab Results 04/18/21 04/18/21 Range/Units 16:26 16:26 WBC 6.9 (4.8-10.8) X10*3/uL RBC 4.20 L (4.60-5.80) X10*6/uL Hgb 13.8 L (14.0-18.0) g/dl Hct 38.7 L (42.0-52.0) % MCV 92.1 (80.0-98.0) fL MCH 32.9 (27.0-33.0) pg MCHC 35.7 (31.0-36.0) g/dl RDW 12.0 (11.0-16.0) % Plt Count 201 (160-400) X10*3/uL MPV 9.3 L (9.4-12.4) fL Immature Gran % (Auto) 0.3 (0.0-0.4) % Neut % (Auto) 58.7 (45-73) % Lymph % (Auto) 27.0 (20-40) % [place] % (Auto) 12.3 H (2-11) % Eos % (Auto) 1.6 (0-4) % Baso % (Auto) 0.1 (0-2) % Lymph # (Auto) 1.9 (1.2-4.9) X10*3/uL [place] # (Auto) 0.8 (0.1-1.2) X10*3/uL Eos # (Auto) 0.1 (0.0-0.4) X10*3/uL Baso # (Auto) 0.0 (0.0-0.2) X10*3/uL Abs Immat Gran (auto) 0.02 (0.00-0.03) X10*3/uL Absolute Neuts (auto) 4.0 (2.0-8.3) x10*3/uL Absolute Nucleated RBC 0.000 (0.0-0.012) X10*3/uL Nucleated RBC % (auto) 0.0 (0.0-0.2) /100WBC Sodium 141 (135-145) mmol/L Potassium 3.7 (3.3-5.1) mmol/L Chloride 104 (96-108) mmol/L Carbon Dioxide 25 (22-29) mmol/L Anion Gap 16 (12-20) BUN 15 (9-16) mg/dL Creatinine 1.06 (0.5-1.4) mg/dL Estim Creat Clear Calc 96.7 Estimated GFR > 60 Random Glucose 127 H (60-115) mg/dL Calcium 9.5 (8.4-10.2) mg/dL Magnesium 2.1 (1.6-2.6) mg/dL Total Bilirubin 0.6 (0.0-1.0) mg/dL AST 28 (5-37) U/L ALT 38 (0-40) U/L Alkaline Phosphatase 73 (39-117) U/L Total Protein 7.2 (6.5-8.0) g/dL Albumin 4.2 (3.5-5.0) g/dL Imaging Data CT scan - head: Radiologist's impression: FINDINGS: There is no evidence of acute intracranial hemorrhage or territorial infarction. No abnormal mass effect or midline shift is seen. Morton to white matter differentiation is well preserved. No extra-axial fluid collections are identified. The ventricles are normal in size. Findings suggest mild scattered white matter ischemic change. The osseous structures and soft tissues are normal. The mastoid air cells and visualized portions of the paranasal sinuses are well aerated. ? CT/CT head/brain wo con IMPRESSION: No acute intracranial pathology. Discharge Plan Discharge Clinical Impression: Essential (primary) hypertension, Headache Patient Disposition: Home, Self-Care Instructions: Acute Headache (ED), Hypertension (ED) Additional Instructions: Continue current medications. Follow up for a recheck of yourblood pressure with your primary care physician in the next 1-2 weeks. Return for any new or worsened symptoms Prescriptions: No Action hydrochlorothiazide 25 mg tablet 25 mg PO QAM Qty: 90 RF: 3 losartan 100 mg tablet 100 mg PO DAILY Qty: 90 RF: 3 atorvastatin 20 mg tablet 20 mg PO DAILY Qty: 90 RF: 3 tadalafil [Cialis] 20 mg tablet 20 mg PO DAILY PRN (Reason: sexual activity) 90 Days Qty: 90 RF: 0 pantoprazole 20 mg tablet,delayed release (DR/EC) 20 mg PO DAILY Qty: 30 RF: 3 hydralazine 100 mg tablet 100 mg PO BID Qty: 180 RF: 2 tramadol 50 mg tablet 50 mg PO Q6H PRN (Reason: pain) 30 Days Qty: 120 RF: 0 cyclobenzaprine 10 mg tablet 10 mg PO BEDTIME PRN (Reason: muscle spasm) 30 Days Qty: 30 RF: 4 (DME) blood pressure test kit-large Kit See Rx Instructions .ROUTE .MEDSUPPLY Qty: 1 RF: 0 omeprazole magnesium [Prilosec OTC] 20 mg tablet,delayed release (DR/EC) 20 mg PO DAILY Qty: 30 RF: 0 vitamin E 200 unit capsule 200 unit PO DAILY RF: 0 Maximum Daily Multivitamin 18-0.4 mg tablet 1 tab PO DAILY RF: 0 aspirin 81 mg tablet,delayed release (DR/EC) 81 mg PO DAILY RF: 0
[2021-04-18 16:30] LABS: MANUAL DIFF FLAG NO
[2021-04-18 16:32] LABS: Basophils Percent Auto 0.1 % (0-2); Eosinophils Absolute Auto 0.1 X10*3/uL (0.0-0.4); Eosinophils Percent Auto 1.6 % (0-4); Hematocrit 38.7 % (42.0-52.0); Hemoglobin 13.8 g/dl (14.0-18.0); Imm Gran Abs Auto 0.02 X10*3/uL (0.00-0.03); Imm Gran Pct Auto 0.3 % (0.0-0.4); Lymphocytes Absolute Auto 1.9 X10*3/uL (1.2-4.9); Mean Corpuscular HGB Conc 35.7 g/dl (31.0-36.0); Mean Corpuscular Hemoglobin 32.9 pg (27.0-33.0); Mean Corpuscular Volume 92.1 fL (80.0-98.0); Mean Platelet Volume 9.3 fL (9.4-12.4); Monocytes Absolute Auto 0.8 X10*3/uL (0.1-1.2); Monocytes Percent Auto 12.3 % (2-11); Neutrophils Percent Auto 58.7 % (45-73); Platelet Count 201 X10*3/uL (160-400); White Blood Count 6.9 X10*3/uL (4.8-10.8)
[2021-04-18] MEDS: Labetalol HCL 100 MG/20 ML VIAL 10 MG IVPUSH (16:42)
[2021-04-18] MEDS: HYDROmorphone HCl 0.5 MG/0.5 ML SYRINGE IVPUSH (16:42)
[2021-04-18 16:47] VITALS: BP 154/79; PULSE 66; O2SAT 96
--- NOTE | 2021-04-18 16:48 | PC.NURSE ---
sr on monitor, garcia imporoved, skin wpd, sr on monitor
[2021-04-18 17:00] LABS: Alanine Aminotransferase 38 U/L (0-40); Albumin Level 4.2 g/dL (3.5-5.0); Alkaline Phosphatase 73 U/L (39-117); Anion Gap 16 (12-20); Aspartate Amino Transferase 28 U/L (5-37); Bilirubin Total 0.6 mg/dL (0.0-1.0); Blood Urea Nitrogen 15 mg/dL (9-16); Calcium 9.5 mg/dL (8.4-10.2); Carbon Dioxide 25 mmol/L (22-29); Chloride 104 mmol/L (96-108); Creatinine Clr Calc Pharmacy 96.7; Estimated Glomerular Filt Rate > 60; Glucose Random 127 mg/dL (60-115); Magnesium 2.1 mg/dL (1.6-2.6); Potassium 3.7 mmol/L (3.3-5.1); Sodium 141 mmol/L (135-145); Total Protein 7.2 g/dL (6.5-8.0)
== END 2021-04-18 17:56 | disposition home or self-care (01) ==
PROVIDERS: Emergency Provider Emergency Medicine
DX: R51.9 Headache, unspecified (principal); I10 Essential (primary) hypertension; Z87.891 Personal history of nicotine dependence; Z79.82 Long term (current) use of aspirin; Z79.899 Other long term (current) drug therapy
CPT/HCPCS: 36415; 70450; 80053; 83735; 85025; 96374; 96375; 99283; 99284; J1170

== ENCOUNTER → 2021-08-06 08:33 | Outpatient (BNVA) | payer OTHER, SELFPAY | PROVIDERS: PCP Internal Medicine; Referring Provider Internal Medicine; Visit Provider Surgery | DX: L72.3 Sebaceous cyst (principal); I77.810 Thoracic aortic ectasia; I51.7 Cardiomegaly; I10 Essential (primary) hypertension; N52.9 Male erectile dysfunction, unspecified | CPT/HCPCS: 99202 ==

== ENCOUNTER 2021-08-10 10:17 | Outpatient (REF) | payer OTHER, SELFPAY | END 2021-08-10 10:18 | disposition home or self-care (01) | LOC: HO.LAB 10:17 | PROVIDERS: PCP Internal Medicine; Referring Provider Internal Medicine; Visit Provider Surgery | DX: R22.2 Localized swelling, mass and lump, trunk (principal) | CPT/HCPCS: 11403; 88304; 99212 ==

== ENCOUNTER 2021-08-11 12:45 | Outpatient (REF) | payer OTHER, SELFPAY | END 2021-08-11 12:46 | disposition home or self-care (01) | LOC: HO.HAP 12:45 | PROVIDERS: Visit Provider Internal Medicine | DX: Z13.89 Encounter for screening for other disorder (principal) ==

== ENCOUNTER → 2021-08-17 10:35 | Outpatient (BNVA) | payer OTHER, SELFPAY | PROVIDERS: PCP Internal Medicine; Referring Provider Internal Medicine; Visit Provider Surgery | DX: Z48.817 Encounter for surgical aftercare following surgery on the skin and subcutaneous tissue (principal); Z87.2 Personal history of diseases of the skin and subcutaneous tissue | CPT/HCPCS: 99211 ==

== ENCOUNTER 2021-12-27 08:56 | Outpatient (REF) | payer OTHER, SELFPAY ==
[2021-12-27 09:07] LABS: MANUAL DIFF FLAG NO
[2021-12-27 10:08] LABS: Basophils Percent Auto 0.6 % (0-2); Eosinophils Absolute Auto 0.1 X10*3/uL (0.0-0.4); Eosinophils Percent Auto 1.1 % (0-4); Hematocrit 43.3 % (42.0-52.0); Hemoglobin 14.8 g/dl (14.0-18.0); Imm Gran Abs Auto 0.02 X10*3/uL (0.00-0.03); Imm Gran Pct Auto 0.3 % (0.0-0.4); Lymphocytes Absolute Auto 1.6 X10*3/uL (1.2-4.9); Lymphocytes Percent Auto 23.4 % (20-40); Mean Corpuscular HGB Conc 34.2 g/dl (31.0-36.0); Mean Corpuscular Hemoglobin 31.8 pg (27.0-33.0); Mean Corpuscular Volume 92.9 fL (80.0-98.0); Mean Platelet Volume 9.8 fL (9.4-12.4); Monocytes Absolute Auto 0.7 X10*3/uL (0.1-1.2); Monocytes Percent Auto 10.3 % (2-11); Neutrophils Absolute Auto 4.5 x10*3/uL (2.0-8.3); Neutrophils Percent Auto 64.3 % (45-73); Platelet Count 243 X10*3/uL (160-400); Red Blood Count 4.66 X10*6/uL (4.60-5.80); Red Cell Distribution Width 11.6 % (11.0-16.0)
[2021-12-27 10:19] LABS: Alanine Aminotransferase 34 U/L (0-40); Albumin Level 4.7 g/dL (3.5-5.0); Alkaline Phosphatase 73 U/L (39-117); Anion Gap 16 (12-20); Aspartate Amino Transferase 24 U/L (5-37); Bilirubin Total 0.7 mg/dL (0.0-1.0); Blood Urea Nitrogen 21 mg/dL (9-16); Calcium 9.8 mg/dL (8.4-10.2); Carbon Dioxide 25 mmol/L (22-29); Chloride 103 mmol/L (96-108); Cholesterol 130 mg/dL; Estimated Glomerular Filt Rate > 60; Glucose Fasting 112 mg/dL (60-99); HDL Cholesterol 46 mg/dL; Iron 108 mcg/dL (45-160); LDL Cholesterol Calculated 35 mg/dl; Percent Iron Saturation 31 % (15-50); Potassium 4.2 mmol/L (3.3-5.1); Sodium 140 mmol/L (135-145); Total Iron Binding Capacity 353 mcg/dL (228-428); Total Protein 7.5 g/dL (6.5-8.0); Triglycerides 247 mg/dL; Unsaturated Iron Binding 245 ug/dL
[2021-12-27 10:42] LABS: Thyroid Stimulating Hormone 0.49 uIU/mL (0.32-4.0)
== END 2021-12-27 08:57 | disposition home or self-care (01) ==
LOC: HO.LAB 08:56
PROVIDERS: PCP Internal Medicine; Visit Provider Internal Medicine
DX: K92.0 Hematemesis (principal); R63.4 Abnormal weight loss; D64.9 Anemia, unspecified; I10 Essential (primary) hypertension; I51.7 Cardiomegaly; I77.810 Thoracic aortic ectasia; E78.5 Hyperlipidemia, unspecified; Z79.899 Other long term (current) drug therapy; Z18.9 Retained foreign body fragments, unspecified material
CPT/HCPCS: 36415; 80053; 80061; 83540; 84443; 85025; 93005; 99212

== ENCOUNTER 2022-09-09 09:45 | Outpatient (REF) | payer OTHER, SELFPAY ==
[2022-09-09 10:51] LABS: Alanine Aminotransferase 31 U/L (0-40); Albumin Level 3.9 g/dL (3.5-5.0); Alkaline Phosphatase 65 U/L (39-117); Anion Gap 11 (12-20); Aspartate Amino Transferase 24 U/L (5-37); Bilirubin Total 0.9 mg/dL (0.0-1.0); Blood Urea Nitrogen 19 mg/dL (9-16); Calcium 9.8 mg/dL (8.4-10.2); Carbon Dioxide 30 mmol/L (22-29); Chloride 105 mmol/L (96-108); Cholesterol 125 mg/dL; Estimated Glomerular Filt Rate > 60; Glucose Fasting 138 mg/dL (60-99); HDL Cholesterol 44 mg/dL; LDL Cholesterol Calculated 47 mg/dl; Sodium 142 mmol/L (135-145); Triglycerides 170 mg/dL
== END 2022-09-09 09:46 | disposition home or self-care (01) ==
LOC: HO.LAB 09:45
PROVIDERS: PCP Internal Medicine; Visit Provider Internal Medicine
DX: I10 Essential (primary) hypertension (principal); E78.5 Hyperlipidemia, unspecified; R25.2 Cramp and spasm
CPT/HCPCS: 36415; 80053; 80061; 83735

== ENCOUNTER → 2022-12-06 09:47 | Outpatient (REF) | payer OTHER, SELFPAY ==
--- NOTE | 2022-12-06 09:51 | CA_ITS ---
Transthoracic Echocardiogram Patient (Last, First, Middle): Leandro Rodríguez M Gender: Male Date of : 1960 Age: 62 Procedure Date: 12/06/2022 Procedure Type: Transthoracic Echocardiogram Location: OP Height: 185.42 cm Weight: 108.86 kg BSA: 2.33 m2 Heart Rate: 63 bpm BP: 144 / 70 mmHg Mind Reader: ALEXIS Referring MD: Wilbert Varela MD Strategic Accounts Manager: Derek Knox MD Symptoms: I77.810 - Thoracic aortic ectasia Study Quality: Fair but adequate ECG Rhythm: Sinus Conclusions: - 1. Normal LV systolic function with mild LVH 2. Normal cardiac valvular Doppler 3. Mildly dilated ascending aorta at 4 cm 4. No gross pericardial effusion Findings Left Ventricle Normal left ventricular size and systolic function. There is mildly increased left ventricular wall thickness. The visually estimated ejection fraction is between 60-65%. Spectral Doppler is indicative of a normal filling pattern. Right Ventricle Normal right ventricular cavity size and systolic function. Atria The left atrium is likely dilated. Interatrial shunt cannot be excluded. The right atrium is normal in size. Aortic Valve The aortic valve structure and function is likely normal. There is no aortic valve stenosis. There is no aortic valve regurgitation. Mitral Valve Normal mitral valve structure and function. There is no mitral valve regurgitation. There is no mitral valve stenosis. Pulmonic Valve The pulmonic valve is likely normal. There is trace pulmonic valve regurgitation. Tricuspid Valve Likely normal tricuspid valve structure and function. Tricuspid regurgitation envelope is inadequate for calculation of right ventricular systolic pressure. Normal right atrial pressure. Great Vessels The pulmonary artery was not well visualized. There is mild dilatation of the ascending aorta measuring 4.00 cm. Venous The inferior vena cava is normal in size and collapses greater than 50% with inspiration. Pericardium/Pleural There is no evidence of pericardial effusion. Prior Study Comparison No significant change compared to prior study dated: 03/10/2021. Measurements 2D Linear Measurements IVSd: 1.44 0.6-0.9/0.6-1.0 cm LVIDd: 5.53 3.9-5.3/4.2-5.9 cm LVIDd Index: 2.37 2.4-3.2/2.2-3.1 cm/m2 LVIDs: 3.37 2.0-3.6 cm LVPWd: 1.31 0.7-1.1 cm LA Diam: 3.50 2.7-3.8/3.0-4.0 cm LAIDs Index: 1.50 1.5-2.3 cm/m2 LV Mass: 414.49 67-162/88-224 g LV Mass Index: 177.89 43-95/49-115 g/m2 LVOT Diam: 2.10 3.0+(-)1.3 cm Mitral Valve MV Pk E: 0.89 MV PK A: 0.73 MV Decel Time: 249.00 E/A: 1.20 E'Lateral: 9.90 E'Medial: 6.09 E/E' Med: 14.60 E/E' Lat: 9.00 PHT: 73.00 MVA PHT: 3.01 Decel [place]: 3.56 Aortic Valve AoV Pk Bob: 1.79 AoV Pk Grad: 13.00 NIKI: 3.00 LVOT LVOT Pk Bob: 1.55 LVOT Mn Bob: 1.07 LVOT VTI: 0.30 LVOT Pk Grad: 10.00 LVOT Mn Grad: 5.00 LVOT Diam: 2.10 LVOT Area: 3.46 Diastolic Function MV Pk E: 0.89 MV Pk A: 0.73 E/A: 1.20 E'Medial: 6.09 E/E' Med: 14.60 E' Laterial: 9.90 E/E' Lat: 9.00 Right Ventricle TAPSE (mm): 21.90 TVS' Bob: 18.00 Tricuspid Valve RA Press: 3.00 Great Vessels Aorta Sinus of Valsalva: 3.70 2.0-3.5 cm Ao Asc: 4.00 2.1-3.4 cm Pulmonary Veins Pulm Vein S/D 1.80 Pulmonary Valve PV Pk Bob: 1.02 Peak PV Grad: 4.00 Updated in Other Vendor System with Status of Final Derek Knox MD electronically signed on 12/06/2022 12:19:03 PM with status of Final
== END ==
LOC: HO.CARD 09:47
PROVIDERS: PCP Internal Medicine; Visit Provider Internal Medicine
DX: I77.810 Thoracic aortic ectasia (principal)
CPT/HCPCS: 93306

== ENCOUNTER → 2022-12-06 09:51 | Outpatient (BNV) | payer OTHER, SELFPAY | PROVIDERS: PCP Internal Medicine; Visit Provider Internal Medicine Cardiovascular Disease | DX: I77.810 Thoracic aortic ectasia (principal) | CPT/HCPCS: 93306 ==

== ENCOUNTER 2022-12-28 09:11 | Outpatient (AMB) | payer OTHER, SELFPAY ==
[2022-12-28 09:21] VITALS: BP 150/82; PULSE 64; BMI 31.9
--- NOTE | 2022-12-28 09:21 | A.OFFVIS_ITS ---
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 Required: No Accompanied by: Self / Same As Patient Allergies acetaminophen [Tylenol] Allergy (Intermediate, Verified 12/28/22 09:23) itching ibuprofen Allergy (Intermediate, Verified 12/28/22 09:23) itching Medication List - Last Reconciled 12/28/22 by Wilbert Varela MD aspirin 81 mg PO DAILY 90 days atorvastatin 20 mg PO DAILY blood pressure test kit-large As directed cyclobenzaprine 10 mg PO BEDTIME PRN 90 days hydralazine 100 mg PO BID hydrochlorothiazide 25 mg PO QAM losartan 100 mg PO DAILY 90 days skmqrkzrbwqo-Ap-ytsl-minerals (Maximum Daily Multivitamin) 1 tab PO DAILY omega-3 fatty acids 1,000 mg PO DAILY tadalafil (Cialis) 20 mg PO DAILY PRN 90 days tramadol 50 mg PO Q6H PRN 90 days HPI HPI Comments History of Present Illness Details Leandro returns for follow-up regarding hypertension. To recall, few years ago, when he went for his brother's in [place], patient developed very high blood pressure and had to be hospitalized locally. At that time, main symptom was apparently headache. Then he underwent extensive testing including carotid studies, brain MRI, cardiac catheterization among others. Since then, he has been on blood pressure medications. Overall, he states he is feeling good. No cardiac status. He states he is going back to recovery few more months and actually leaving in a couple hours. [facility] Medical History COVID-19 vaccine series completed Encounter for Medicare annual wellness exam Erectile dysfunction Essential hypertension GERD (gastroesophageal reflux disease) Low TSH level Lumbar degenerative disc disease Mass of skin of back Medicare annual wellness visit, initial Pure hypercholesterolemia Rash Surgical History History of colon resection History of colonoscopy History of colon cancer History of back surgery Family History Father Myocardial infarction Mother Hypertension COPD (chronic obstructive pulmonary disease) Daughter Hypertension Heart problem Maternal Grandmother CAD (coronary artery disease) Stroke Paternal Grandfather Myocardial infarction Brother In good health Brother In good health Sister In good health Sister In good health Sister In good health Daughter In good health Daughter In good health Daughter In good health Social History Household Members: None Housing: Apartment Are you a primary home health caregiver to a significant other at home: No Do you presently have visiting nurse or other home services: No Alcohol intake: never Patient Tobacco Use Status: Former Tobacco user Quit Date: 2014 Tobacco use type: Cigarette Years Smoked: 40 +/- e-Cigarette/Vaping Use: Never Used Second Hand Smoke Exposure: No service: No Current occupational status: disabled Cognitive needs: No Hearing needs: No Vision needs: Yes Review of Systems Const Denies weakness ENT Denies dizziness Card Denies chest pain, Denies chest pain with activity, Denies syncope, Denies rapid heart rate, Denies pedal edema, Denies edema, Denies leg edema, Denies lightheadedness, Denies palpitations, Denies dyspnea, Denies dyspnea on exertion and Denies orthopnea Resp Denies cough, Denies dyspnea and Denies dyspnea on exertion GI Denies hematochezia and Denies change in stool character Musc Denies abnormal gait, Denies muscle cramps, Denies muscle weakness, Denies numbness, Denies radiating pain into limb and Denies tingling Neuro Denies abnormal gait, Denies dizziness, Denies syncope, Denies numbness, Denies tingling and Denies weakness Endo Denies palpitations Physical Exam Vital Signs: Last Vital Signs Pulse 64 12/28/22 09:21 BP 150/82 H 12/28/22 09:21 BMI result Body Mass Index 31.9 Const General: comfortable and no acute distress Orientation/consciousness: patient oriented x3 HEENT Other: Unremarkable Head: Yes normal to inspection Neck Neck: Yes normal visual inspection Chest Chest palpation & inspection: normal inspection of the chest Resp Auscultation: clear to auscultation bilaterally Cardio Palpation: normal PMI Heart sounds: S1 normal heart sound present, S2 normal heart sound present, no gallops, no murmurs and no rubs GI Palpation (GI): Soft to palpation Back/Spine/Pelvis Other: unremarkable Skin General skin exam: no rashes or lesions noted Neuro General: patient oriented x3 Extrem General: Yes normal to inspection Psych Mental Status: mental status grossly normal Office Procedures EKG Details: EKG with sinus rhythm at 64/Min; no significant ST-T changes and otherwise unremarkable. [place]. [address]-[id number], Complete Assessment & Plan Assessment & Plan (1) Essential (primary) hypertension: Code(s): I10 - Essential (primary) hypertension Plan: Blood pressure seems to be on the higher side. Today it is 150/82 mm Hg. Few days ago, 179/81 mm Hg. He states, home pressures are lower than that somewhere in the 130s or so. Overall, it seems that his pressure is not fully regulated. Current regimen includes hydralazine, losartan, hydrochlorothiazide. He seems to be on reasonable doses. We can add carvedilol 6.25 mg b.i.d.. Advised him to pick the medication today before he leaves for [place]. He will continue to monitor blood pressures inform us. Then can make changes accordingly. (2) LVH (left ventricular hypertrophy): Code(s): I51.7 - Cardiomegaly Plan: Suspected to be all related to hypertension. He does not have any clinical symptoms or signs of diastolic congestive heart failure. (3) Ascending aorta dilatation: Code(s): I77.810 - Thoracic aortic ectasia Plan: This is stable. Ascending aortic size 4 cm. Probably acceptable considering his height and weight. We can recheck in a couple of years or so. Plan Total time spent including review of data, counseling, documentation, coordination of care-31 minutes. Medications: New carvedilol (Coreg) must administer with a meal/food 6.25 mg PO BID 180 tabs 3RF 90 days Quality Reporting (2019) Adult ([facility] 138/2/) Smoking risk assessment performed?: Yes Patient Tobacco Use Status: Former Tobacco user Coding Level of Care Code Est Pt Level 4 (38880) Diagnoses Essential (primary) hypertension I10 LVH (left ventricular hypertrophy) I51.7 Ascending aorta dilatation I77.810 CPT Codes EKG - CPT: 94509-[id number], Complete ([id number])
== END 2022-12-28 09:37 | disposition home or self-care (01) ==
PROVIDERS: PCP Internal Medicine; Visit Provider Internal Medicine
DX: I10 Essential (primary) hypertension (principal); I51.7 Cardiomegaly; I77.810 Thoracic aortic ectasia
CPT/HCPCS: 93010; 99214

== ENCOUNTER → 2022-12-28 09:11 | Outpatient (BNVA) | payer OTHER, SELFPAY | PROVIDERS: PCP Internal Medicine; Visit Provider Internal Medicine | DX: I10 Essential (primary) hypertension (principal); I51.7 Cardiomegaly; I77.810 Thoracic aortic ectasia | CPT/HCPCS: 93005; 99212 ==

== ENCOUNTER 2023-02-17 09:51 | Outpatient (AMB) | payer OTHER, SELFPAY ==
--- NOTE | 2023-02-17 09:56 | MHC.PC.OV ---
Vital Signs 02/17/23 09:58 02/17/23 10:12 Height 6 ft 1 in Weight 248 lb BMI 32.7 BP 158/90 H 144/82 H Blood Pressure Location Rt brachial Lt brachial Position Sitting Pulse 60 Pulse Source Pulse Oximeter Pulse Oximetry (%) 98 Oxygen Delivery Method Room Air Intake Visit Reasons: Follow up on medication Intake Note: Patient is here to follow up on medication review [employer] Security Required: No Order Schedule Clerk: Not Required per policy Accompanied by: Self / Same As Patient Allergies acetaminophen [Tylenol] Allergy (Intermediate, Verified 02/17/23 10:08) itching ibuprofen Allergy (Intermediate, Verified 02/17/23 10:08) itching Medication List - Last Reconciled 02/17/23 by LEN Patricia aspirin 81 mg PO DAILY 90 days atorvastatin 20 mg PO DAILY blood pressure test kit-large As directed carvedilol (Coreg) 6.25 mg PO BID 90 days cyclobenzaprine 10 mg PO BEDTIME PRN 90 days hydralazine 100 mg PO BID hydrochlorothiazide 25 mg PO QAM losartan 100 mg PO DAILY 90 days cdxeljoefmai-Ps-pwvl-minerals (Maximum Daily Multivitamin) 1 tab PO DAILY omega-3 fatty acids 1,000 mg PO DAILY tadalafil (Cialis) 20 mg PO DAILY PRN 90 days tramadol 50 mg PO Q6H PRN 90 days Tobacco use date assessed: 02/17/23 Dental Screening Dental Screen Date: 02/17/23 Did you have a dental visit in the last 12 months?: Yes Did you have a dental problem in the last 6 months where you did not have access to dental care?: No Was dental information given to patient?: Patient has dentist HPI HPI Comments History of Present Illness Details This is a 62-year-old male with hypertension, pure hypercholesterolemia, erectile dysfunction and lumbar degenerative disc disease. PAtient of Dr. Ash presents today for medication follow up. Patient reports he does have a occasional burning pain in his right upper thigh that comes intermittently and only lasts a few minutes then resolved. Patient made aware likely lumbar radiculopathy symptoms from his history of lumbar degenerative disc disease. Denies bowel or bladder incontinence, denies lower extremity weakness. Can continue on tramadol for pain. Patient requesting refill.Patient's blood pressure elevated office today 158/90, patient reports that he was upset while they were taking his blood pressure as he thought he was going to be seeing his primary care provider. Blood pressure repeated came down to 144/82. Patient states was recently started on carvedilol 6.25 mg from Cardiology. Patient requesting prescription for blood pressure cuff as well as medication pill box to be faxed to [facility]: . Orders entered. [facility] Medical History COVID-19 vaccine series completed Encounter for Medicare annual wellness exam Erectile dysfunction Essential hypertension GERD (gastroesophageal reflux disease) Low TSH level Lumbar degenerative disc disease Mass of skin of back Medicare annual wellness visit, initial Pure hypercholesterolemia Rash Surgical History History of colon resection History of colonoscopy History of colon cancer History of back surgery Family History Father Myocardial infarction Mother Hypertension COPD (chronic obstructive pulmonary disease) Daughter Hypertension Heart problem Maternal Grandmother CAD (coronary artery disease) Stroke Paternal Grandfather Myocardial infarction Brother In good health Brother In good health Sister In good health Sister In good health Sister In good health Daughter In good health Daughter In good health Daughter In good health Social History Household Members: None Housing: Apartment Are you a primary home health care social worker to a significant other at home: No Do you presently have visiting nurse or other home services: No Alcohol intake: never Patient Tobacco Use Status: Former Tobacco user Quit Date: 2014 Tobacco use type: Cigarette Years Smoked: 40 +/- e-Cigarette/Vaping Use: Never Used Second Hand Smoke Exposure: No service: No Current occupational status: disabled Cognitive needs: No Hearing needs: No Vision needs: Yes Questionnaire Thrive Questionnaire Date Thrive assessed: 08/25/22 JOSETTE-7 AMB Questionnaire JOSETTE-7 Date JOSETTE - 7 assessed: 08/25/22 Source: Developed by Drs. Handy Allen, Mesha Mcgrath, Willian Pelletier and colleagues, with an educational lacho from [employer]. Review of Systems Const Denies chills, Denies fatigue, Denies fever(s) and Denies poor appetite Eyes Denies no additional complaints ENT Reports Normal hearing present Card Denies chest pain, Denies syncope, Denies rapid heart rate and Denies dyspnea Resp Denies cough and Denies dyspnea GI Denies change in stool character, Denies constipation, Denies diarrhea, Denies nausea and Denies vomiting Denies dysuria, Denies urinary frequency and Denies urinary urgency Neuro Reports Normal hearing present, Denies confusion and Denies syncope Psych Denies confusion Endo Denies fatigue Physical exam (Primary Care) Vital Signs: Last Vital Signs Pulse 60 02/17/23 09:58 BP 144/82 H 02/17/23 10:12 Pulse Ox 98 02/17/23 09:58 Oxygen Delivery Method Room Air 02/17/23 09:58 BMI result Body Mass Index 32.7 Tobacco/Smoking Status: Tobacco use Status Tobacco use date assessed 02/17/23 02/17/23 09:58 Patient Tobacco Use Status Former Tobacco user 02/17/23 09:58 Tobacco use type Cigarette 02/17/23 09:58 e-Cigarette/Vaping Use Never Used 02/17/23 09:58 Thrive Assessment: Date of Thrive Assessment Date Thrive assessed 08/25/22 02/17/23 09:58 Const General: No confusion Orientation/consciousness: No confusion HENMT Head: Yes normocephalic and Yes atraumatic Eyes Conjunctivae: conjunctivae normal Chest Chest palpation & inspection: normal inspection of the chest Resp Effort & Inspection: normal respiratory effort Auscultation: clear to auscultation bilaterally, no crackles, no rhonchi and no wheezes Cardio Rate: regular rate Rhythm: regular rhythm Heart sounds: S1 normal heart sound present and S2 normal heart sound present GI Inspection: Yes normal to inspection Neuro General: No confusion Cranial nerves: Yes Normal hearing present Extrem General: No edema Assessment and Plan Assessment & Plan (1) Essential hypertension: Code(s): I10 - Essential (primary) hypertension Plan: Continue on carvedilol, hydralazine, hydrochlorothiazide, losartan. Follow low-salt diet and exercise. Blood pressure goal less than 140/90. Blood pressure cuff ordered patient advised to take blood pressure at home after sitting down for 3-5 minutes and keep a log. Report any elevated blood pressures to PCP (2) Pure hypercholesterolemia: Code(s): E78.00 - Pure hypercholesterolemia, unspecified Plan: Continue on atorvastatin 20 mg daily. Follow low-cholesterol diet. Fasting lipid panel ordered (3) Lumbar degenerative disc disease: Code(s): M51.36 - Other intervertebral disc degeneration, lumbar region Plan: Patient experiencing right leg burning pain intermittently like we radiculopathy symptoms from lumbar degenerative disc disease. Patient can continue on tramadol 50 mg q.6 hours as needed, refill sent to patient's pharmacy for this. Plan Follow-up in 3 months. Orders: Orders Comprehensive [place]. Panel Fast Today I10 - Essential (primary) hypertension Complete Blood Count Auto Diff Today Z13.0 - Encounter for screening for diseases of the blood and blood-forming organs and certain disorders involving the immune mechanism Lipid Panel Today Z13.220 - Encounter for screening for lipoid disorders TSH reflex Free T4 Today Z13.29 - Encounter for screening for other suspected endocrine disorder Medications: New blood pressure test kit-medium As directed 1 ea 0RF miscellaneous medical supply medication pill box. 1 ea miscellaneous ONCE 1 ea 0RF Refilled tramadol 50 mg PO Q6H 90 days PRN 360 tabs 0RF pain M51.36 - Other intervertebral disc degeneration, lumbar region Coding Level of Care Code Est Pt Level 3 (42489) Diagnoses Essential hypertension I10 Pure hypercholesterolemia E78.00 Lumbar degenerative disc disease M51.36
[2023-02-17 09:58] VITALS: BP 158/90; PULSE 60; O2SAT 98; BMI 32.7
[2023-02-17 10:12] VITALS: BP 144/82
== END 2023-02-17 10:29 | disposition home or self-care (01) ==
PROVIDERS: PCP Internal Medicine; Visit Provider Nurse Practitioner Family
DX: I10 Essential (primary) hypertension (principal); E78.00 Pure hypercholesterolemia, unspecified; M51.36 Other intervertebral disc degeneration, lumbar region
CPT/HCPCS: 99213

== ENCOUNTER 2023-05-06 11:59 | Emergency (ER) | payer OTHER, SELFPAY ==
--- NOTE | ~2023-05-06 | XR_ITS ---
EXAMINATION: Left foot and ankle x-ray CLINICAL INFORMATION: Pain and swelling COMPARISON: None. TECHNIQUE: 3 views left foot and 3 views left ankle FINDINGS: Left foot: Bone alignment is normal. No fracture or dislocation. Normal joint spaces. Small radiopaque soft tissue densities project palmar second and third toes. Left ankle: Bone alignment is normal. No acute fracture or dislocation. Well corticated ossification inferior to the lateral malleolus possibly secondary to old trauma. Normal ankle mortise. Mild lateral soft tissue swelling. XR/XR foot LT min 3V IMPRESSION: No acute fracture or dislocation. Mild lateral soft tissue swelling over the ankle. Question soft tissue foreign body second or third toe plantar soft tissues.
--- NOTE | ~2023-05-06 | XR_ITS ---
EXAMINATION: Left foot and ankle x-ray CLINICAL INFORMATION: Pain and swelling COMPARISON: None. TECHNIQUE: 3 views left foot and 3 views left ankle FINDINGS: Left foot: Bone alignment is normal. No fracture or dislocation. Normal joint spaces. Small radiopaque soft tissue densities project palmar second and third toes. Left ankle: Bone alignment is normal. No acute fracture or dislocation. Well corticated ossification inferior to the lateral malleolus possibly secondary to old trauma. Normal ankle mortise. Mild lateral soft tissue swelling. XR/XR ankle LT min 3V IMPRESSION: No acute fracture or dislocation. Mild lateral soft tissue swelling over the ankle. Question soft tissue foreign body second or third toe plantar soft tissues.
[2023-05-06 12:24] VITALS: BP 138/80; PULSE 70; RESP 18; TEMP 36.8; O2SAT 94; BMI 34.0
--- NOTE | 2023-05-06 12:25 | ED_ITS ---
HPI - Extremity Injury (Lower) General Chief Complaint: Extremity Injury, Lower Stated Complaint: l ankle inj Time Seen by Provider: 05/06/23 12:37 Source: patient, RN notes reviewed and old records reviewed Mode of arrival: ambulatory History of Present Illness HPI Narrative: 62-year-old male with a past medical history HTN, GERD, presenting to the ED complaining of left ankle pain and swelling s/p twisting injury 1 week ago. Reports slipped and twisted ankle on ice while walking down the stairs. Denies injury to other area, head trauma or LOC. Has been walking with a difficulty since incident. Denies numbness, tingling Related Data Home Medications Medication Instructions Recorded Confirmed [id number] 18 1 tab PO DAILY 12/23/20 02/17/23 mg-0.4 mg tablet (Maximum Daily Multivitamin) omega-3 fatty acids 1,000 mg 1,000 mg PO DAILY 08/06/21 02/17/23 capsule Previous Rx's Medication Instructions Recorded blood pressure test kit-large #1 ea 05/28/20 tadalafil 20 mg tablet (Cialis) 20 mg PO DAILY PRN sexual activity 04/28/22 90 days #90 tabs atorvastatin 20 mg tablet 20 mg PO DAILY #90 tabs 10/06/22 hydrochlorothiazide 25 mg tablet 25 mg PO QAM #90 tabs 12/11/22 carvedilol 6.25 mg tablet (Coreg) 6.25 mg PO BID 90 days #180 tabs 12/28/22 blood pressure test kit-medium #1 ea 02/17/23 miscellaneous medical supply 1 ea miscellaneous ONCE #1 ea 02/17/23 cyclobenzaprine 10 mg tablet 10 mg PO BEDTIME PRN for muscle 03/28/23 spasm 90 days #90 tabs losartan 100 mg tablet 100 mg PO DAILY 90 days #90 tabs 03/28/23 hydralazine 100 mg tablet 100 mg PO BID #180 tabs 04/10/23 tramadol 50 mg tablet 50 mg PO Q6H PRN pain 90 days #360 04/25/23 tabs aspirin 81 mg tablet,delayed 81 mg PO DAILY 90 days #90 tabs 04/27/23 release Allergies Allergy/AdvReac Type Severity Reaction Status Date / Time acetaminophen [Tylenol] Allergy Intermediate itching Verified 02/03/24 12:29 ibuprofen Allergy Intermediate itching Verified 05/06/23 12:29 Review of Systems Review of Systems: Constitutional:No Fever, No Chills ENT/Mouth: No Ear Pain, No Nasal Congestion, No sore throat, No Rhinorrhea, No Swallowing Difficulty Cardiovascular: No Chest Pain, No SOB Respiratory: No Cough, No Sputum, No Wheezing Gastrointestinal: No Nausea, No Vomiting, No Diarrhea, No Abdominal pain Genitourinary: No Dysuria, No Urinary Frequency, No Hematuria, No Flank Pain Musculoskeletal:+ joint pain, No Myalgias, +Joint Swelling Skin: No Skin Lesions, No rash Neuro: No Weakness, No Numbness, No Paresthesias Yes all other systems are reviewed and are negative Constitutional: Constitutional: Reports as per [facility] Past Medical History Attestation statement: The following information was validated with the patient. Source: old records reviewed Medical History Encounter for Medicare annual wellness exam Rash Mass of skin of back Low TSH level COVID-19 vaccine series completed GERD (gastroesophageal reflux disease) Medicare annual wellness visit, initial Lumbar degenerative disc disease Pure hypercholesterolemia Erectile dysfunction Essential hypertension Surgical History History of colon resection History of colonoscopy History of colon cancer History of back surgery Family History Family History Father Myocardial infarction Mother Hypertension COPD (chronic obstructive pulmonary disease) Daughter Hypertension Heart problem Maternal Grandmother CAD (coronary artery disease) Stroke Paternal Grandfather Myocardial infarction Brother In good health Brother In good health Sister In good health Sister In good health Sister In good health Daughter In good health Daughter In good health Daughter In good health Social History Social History Household Members: None Housing: Apartment Are you a primary resident care technician to a significant other at home: No Do you presently have visiting nurse or other home services: No Alcohol intake: never Patient Tobacco Use Status: Former Tobacco user Quit Date: 2014 Tobacco use type: Cigarette Years Smoked: 40 +/- e-Cigarette/Vaping Use: Never Used Second Hand Smoke Exposure: No Advance Directives: No Advance Directives Information Provided: No service: No Current occupational status: disabled Cognitive needs: No Hearing needs: No Vision needs: Yes Physical Exam Vital Signs: Vital Signs: Last Vital Signs Temp 98.2 F 05/06/23 12:24 Pulse 70 05/06/23 12:24 Resp 18 05/06/23 12:24 BP 138/80 05/06/23 12:24 Pulse Ox 94 05/06/23 12:24 O2 Del Method Room Air 05/06/23 12:24 BMI result Body Mass Index 34.0 Const: General: cooperative, healthy appearing and no acute distress Orientation/consciousness: patient oriented x3 Limitations: no limitations HEENT: Head: Yes normal to inspection and Yes atraumatic Ears: hearing grossly normal bilaterally General nose exam: Normal external nose present Face and sinus: Yes normal facial exam Eyes: General: appearance normal, both eyes and all related structures EOM: EOMs intact bilaterally Neck: Neck: Yes normal visual inspection and Yes no meningeal signs Resp: Effort & Inspection: normal respiratory effort and no respiratory distress Cardio: Rate: regular rate Skin: Rashes: no rashes Wounds: no wounds Neuro: General: patient oriented x3, tone normal and no meningeal signs Cranial nerves: Yes CN's II-XII intact bilaterally Gait exam (Neuro): Normal gait present Extrem: Other: Left ankle and proximal foot with noted swelling. Diffusely tender to palpation greatest to lateral aspect. ROM to ankle intact with discomfort. NV intact Left knee without tenderness. Full range of motion intact Course Course Course Narrative: This is a rapid medical exam: Additional HPI, ROS, PE not included below will be deferred to primary provider. Patient is a 62-year-old male presenting with left ankle pain and swelling for 2 days. States he inverted his ankle while walking. Has taken a muscle relaxer and tramadol prescribed to him for back pain with little relief. Swelling noted in triage. Able to ambulate. Plan: x-ray 1505--XR foot LT min 3V/XR ankle LT min 3V IMPRESSION: No acute fracture or dislocation. Mild lateral soft tissue swelling over the ankle. Question soft tissue foreign body second or third toe plantar soft tissues. > no appreciable foreign body on exam. No tenderness. No erythema or warmth. Air cast and crutches supplied. Results discussed with patient including worrisome signs and symptoms and strict return precautions, and when to return to the emergency department. They verbalized understanding and feel safe for discharge at this time. Medical Decision Making Medical Decision Making MDM Narrative: 62-year-old male with a past medical history HTN, GERD, presenting to the ED complaining of left ankle pain and swelling s/p twisting injury 1 week ago. On exam vital signs stable, NAD, nontoxic appearing, physical exam as noted above. Concern for sprain vs fracture. No evidence of septic joint/arthritis. Unlikely DVT Plan: X-rays Please refer to course for remaining clinical decision making, interpretation of labs/imaging results, and discussions with consultants and/or family members. Differential Diagnosis Differential Diagnoses: The differential diagnosis associated with the presentation includes As above Independent Interpretation I performed an independent interpretation of an: Plain X-Ray Radiology Impression Discussion of test interpretation with radiology: I have reviewed the radiologist's reading. External Record Review External record reviewed: Inpatient record, Office record, Outpatient record, Prior outpatient labs, Prior outpatient radiology, Primary care record and Outside ED record Tests considered The following testing was considered but not selected: As above Prescription Management I considered prescription management with: Other Procedures Orthopedic Splinting/Casting Injury #1: Side: left Lower Extremity Injury Location: ankle Lower Extremity Immobilizer: AirCast Other Orthopedic Equipment: crutches Discharge Plan Discharge Clinical Impression: Ankle sprain Patient Disposition: Home, Self-Care Instructions: Ankle Sprain (DC) Additional Instructions: You sprained your ankle, there is no appreciable fracture Wear Aircast/Jewel wrap and use crutches as needed Take ibuprofen and Tylenol for pain/swelling Ice and elevate Follow-up with her doctor If symptoms persist or worsen her pain is unbearable return to the ED Prescriptions: No Action tadalafil [Cialis] 20 mg tablet 20 mg PO DAILY PRN (Reason: sexual activity) 90 Days Qty: 90 4RF Rx Instructions: administer approximately 30min before sexual activity; do not use more than 1 dose per 24hrs atorvastatin 20 mg tablet 20 mg PO DAILY Qty: 90 3RF hydrochlorothiazide 25 mg tablet 25 mg PO QAM Qty: 90 3RF cyclobenzaprine 10 mg tablet 10 mg PO BEDTIME PRN (Reason: for muscle spasm) 90 Days Qty: 90 4RF losartan 100 mg tablet 100 mg PO DAILY 90 Days Qty: 90 1RF hydralazine 100 mg tablet 100 mg PO BID Qty: 180 2RF tramadol 50 mg tablet 50 mg PO Q6H PRN (Reason: pain) 90 Days Qty: 360 0RF aspirin 81 mg tablet,delayed release (DR/EC) 81 mg PO DAILY 90 Days Qty: 90 3RF (DME) blood pressure test kit-large Kit See Rx Instructions .ROUTE .MEDSUPPLY Qty: 1 0RF Rx Instructions: As directed (DME) blood pressure test kit-medium Kit See Rx Instructions miscellaneous .MEDSUPPLY Qty: 1 0RF Rx Instructions: As directed miscellaneous medical supply Kit 1 ea miscellaneous ONCE Qty: 1 0RF Rx Instructions: medication pill box. Maximum Daily Multivitamin 18-0.4 mg tablet 1 tab PO DAILY omega-3 fatty acids 1,000 mg capsule 1,000 mg PO DAILY carvedilol [Coreg] 6.25 mg tablet 6.25 mg PO BID 90 Days Qty: 180 3RF Rx Instructions: must administer with a meal/food Referrals: Amy Rodriguez MD [Primary Care Provider] - 1 week
== END 2023-05-06 15:20 | disposition home or self-care (01) ==
PROVIDERS: Emergency Provider Student in an Organized Health Care Education/Training Program; PCP Internal Medicine
DX: S93.492A Sprain of other ligament of left ankle, initial encounter (principal); W00.1XXA Fall from stairs and steps due to ice and snow, initial encounter; Y93.89 Activity, other specified; Y92.9 Unspecified place or not applicable; Y99.9 Unspecified external cause status
CPT/HCPCS: 73610; 73630; 99282; 99283

== ENCOUNTER 2023-05-24 10:22 | Outpatient (AMB) | payer OTHER, SELFPAY ==
--- NOTE | 2023-05-24 10:24 | MHC.PC.OV ---
Vital Signs 05/24/23 10:25 05/24/23 10:54 Height 6 ft 1 in Weight 258 lb BMI 34.0 BP 160/92 H 150/90 H Blood Pressure Location Lt brachial Lt brachial Position Sitting Sitting Intake Visit Reasons: HTN, hypercholesteremiam,LDD Intake Note: Patient here for a follow up HTN, Hypercholesterolemia, LDD Inventory Specialist Manager Required: No Accompanied by: Spouse Allergies acetaminophen [Tylenol] Allergy (Intermediate, Verified 05/24/23 10:41) itching ibuprofen Allergy (Intermediate, Verified 05/24/23 10:41) itching Medication List - Last Reconciled 05/24/23 by Amy Davila MD aspirin 81 mg PO DAILY 90 days atorvastatin 20 mg PO DAILY blood pressure test kit-large As directed blood pressure test kit-medium As directed carvedilol (Coreg) 6.25 mg PO BID 90 days cyclobenzaprine 10 mg PO BEDTIME PRN 90 days hydralazine 100 mg PO BID hydrochlorothiazide 25 mg PO QAM losartan 100 mg PO DAILY 90 days miscellaneous medical supply 1 ea miscellaneous ONCE [id number]-minerals (Maximum Daily Multivitamin) 1 tab PO DAILY omega-3 fatty acids 1,000 mg PO DAILY tadalafil (Cialis) 20 mg PO DAILY PRN 90 days tramadol 50 mg PO Q6H PRN 90 days Tobacco use date assessed: 05/24/23 Dental Screening Dental Screen Date: 05/24/23 Did you have a dental visit in the last 12 months?: Yes Did you have a dental problem in the last 6 months where you did not have access to dental care?: No Was dental information given to patient?: Patient has dentist HPI HPI Comments History of Present Illness Details This is a 62-year-old male with hypertension, pure hypercholesterolemia, lumbar degenerative disc disease and history of colon cancer diagnosed in 2014 that was successfully treated comes today accompanied by for follow-up on his conditions. Blood pressure elevated and his compliant with his medications. I will increase hydralazine to 3 times a day. Blood pressure will be recheck in 3 weeks by nurse navigator. On statins for pure hypercholesterolemia and lipid panel will be order. On tramadol for lumbar degenerative disc disease which he is aware is a weak opiate. Last colonoscopy was [address] Mendez and he has a colonoscopy scheduled for this year. He has impaired glucose tolerance but denies any unintentional weight loss, polyuria or polydipsia. Complains of a burning like pain in right lateral thigh most likely due to meralgia paresthetica. I recommend to not use tight belt around his waist and to lose weight. No chest pain or shortness of breath. [facility] Medical History (Updated 05/24/23 @ 11:02 by Amy Davila MD) Ascending aorta dilatation Encounter for Medicare annual wellness exam Rash Mass of skin of back Low TSH level COVID-19 vaccine series completed GERD (gastroesophageal reflux disease) Medicare annual wellness visit, initial Lumbar degenerative disc disease Pure hypercholesterolemia Erectile dysfunction Essential hypertension Surgical History History of colon resection History of colonoscopy History of colon cancer History of back surgery Family History Father Myocardial infarction Mother Hypertension COPD (chronic obstructive pulmonary disease) Daughter Hypertension Heart problem Maternal Grandmother CAD (coronary artery disease) Stroke Paternal Grandfather Myocardial infarction Brother In good health Brother In good health Sister In good health Sister In good health Sister In good health Daughter In good health Daughter In good health Daughter In good health Social History Household Members: None Housing: Apartment Are you a primary urgent care physician assistant to a significant other at home: No Do you presently have visiting nurse or other home services: No Alcohol intake: never Patient Tobacco Use Status: Former Tobacco user Quit Date: 2014 Tobacco use type: Cigarette Years Smoked: 40 +/- e-Cigarette/Vaping Use: Never Used Second Hand Smoke Exposure: No service: No Current occupational status: disabled Cognitive needs: No Hearing needs: No Vision needs: Yes Questionnaire PHQ-9 Over the last 2 weeks, how often have you been bothered by any of the following problems? 1. Little interest or pleasure in doing things: not at all 2. Feeling down, depressed, or hopeless: not at all 3. Trouble falling or staying asleep, or sleeping too much: not at all 4. Feeling tired or having little energy: not at all 5. Poor appetite or overeating: not at all 6. Feeling bad about yourself - or that you are a failure or have let yourself or your family down: not at all 7. Trouble concentrating on things, such as reading the newspaper or watching television: not at all 8. Moving or speaking so slowly that other people could have noticed. Or the opposite - being so fidgety or restless that you have been moving around a lot more than usual: not at all 9. Thoughts that you would be better off or of hurting yourself in some way: not at all Total score: 0 Depression Screening Interpretation: Negative Depression Screening Done: Yes 64232 - PHQ-9 Billing: Yes Source: Developed by Drs. Handy Allen, Mesha Mcgrath, Willian Pelletier and colleagues, with an educational lacho from [employer]. Thrive Questionnaire Date Thrive assessed: 05/24/23 I am a: Patient What is your living situation today?: I have a steady place to live Within the past 12 months, did the food you bought not last and you didn't have the money to get more?: Never true Within the past 12 months, did you worry whether your food would run out before you got money to buy more?: Never true Do you have trouble paying for medicines?: No Do you have trouble getting transportation to medical appointments?: No Do you have trouble paying your heating and electricity bill?: No Do you have trouble taking care of your child, family member or friend?: No Do you have trouble with day-to-day activities such as bathing, preparing meals, shopping, managing finances, etc.?: No Are you currently unemployed and looking for a job?: No Are you interested in more education?: No Please select the resources that you would like help with: None Currently or been in a relationship where the following occur: no concerns reported THRIVE Score: 0 AUDIT C Alcohol Use Questionnaire (AUDIT-C) 1. How often do you have a drink containing alcohol?: Never Total Score: 0 JOSETTE-7 AMB Questionnaire JOSETTE-7 Date JOSETTE - 7 assessed: 05/24/23 Feeling nervous, anxious, or on edge: 0 = Not at all Not being able to stop or control worryin = Not at all Worrying too much about different things: 0 = Not at all Trouble relaxin = Not at all Being so restless that it is hard to sit still: 0 = Not at all Becoming easily annoyed or irritable: 0 = Not at all Feeling afraid as if something awful might happen: 0 = Not at all Total JOSETTE-7 score (0-4 normal; 5-9 mild; 10-14 moderate; 15-21 severe): 0 Source: Developed by Drs. Handy Allen, Mesha Mcgrath, Willian Pelletier and colleagues, with an educational lacho from [employer]. JOSETTE-7 Assessment Billing JOSETTE-7 Assessment Tool: JOSETTE-7 Assessment 26089 Review of Systems Const All systems reviewed & are unremarkable except as noted in HPI and below Eyes Reports no additional complaints, Denies change in vision and Denies other visual disturbances Card Denies chest pain at rest, Denies chest pain with activity, Denies edema, Denies irregular heart rhythm, Denies claudication, Denies dyspnea, Denies dyspnea on exertion, Denies orthopnea, Denies paroxysmal nocturnal dyspnea and Denies slow heart rate Resp Denies cough, Denies dyspnea and Denies dyspnea on exertion GI Denies abdominal pain, Denies change in bowel habits, Denies excessive flatus, Denies nausea and Denies vomiting Denies urinary hesitancy, Denies urinary incontinence and Denies urinary urgency Musc Denies abnormal gait, Denies atrophy, Denies deformity and Denies limited range of motion Skin/Breast Denies bleeding lesions, Denies changing lesions and Denies rash Neuro Denies abnormal gait and Denies lack of coordination Physical exam (Primary Care) Vital Signs: Last Vital Signs BP 160/92 H 05/24/23 10:25 BMI result Body Mass Index 34.0 Tobacco/Smoking Status: Tobacco use Status Tobacco use date assessed 05/24/23 05/24/23 10:33 Patient Tobacco Use Status Former Tobacco user 05/24/23 10:33 Tobacco use type Cigarette 05/24/23 10:33 e-Cigarette/Vaping Use Never Used 05/24/23 10:33 PHQ-9: PHQ-9 Score PHQ-9: Total score 0 05/24/23 10:33 Depression Screening Interpretation: Negative Thrive Assessment: Date of Thrive Assessment Date Thrive assessed 05/24/23 05/24/23 10:33 Currently or been in a relationship where the following occur: no concerns reported Eyes General: appearance normal, both eyes and all related structures Eyelids: Yes eyelids normal Conjunctivae: conjunctivae normal Neck Neck: Yes normal visual inspection and Yes supple Resp Effort & Inspection: normal respiratory effort Auscultation: clear to auscultation bilaterally Cardio Jugular venous distension: no JVD Rate: regular rate Rhythm: regular rhythm Heart sounds: S1 normal heart sound present and S2 normal heart sound present Extrem General: Yes full ROM Assessment and Plan Assessment & Plan (1) Colon cancer: Comment: Diagnosed in 2014 and treated with resection in May 2015 Code(s): C18.9 - Malignant neoplasm of colon, unspecified Qualifiers: Colon location: unspecified part of colon Qualified Code(s): C18.9 - Malignant neoplasm of colon, unspecified Plan: Follow-up with Gastroenterology. Colonoscopy scheduled for this year. (2) Essential (primary) hypertension: Code(s): I10 - Essential (primary) hypertension Plan: Continue losartan, carvedilol, and hydrochlorothiazide. Increase hydralazine from 100 mg twice a day to 100 mg 3 times a day. Blood pressure goal is equal or less than 130/80. Recheck blood pressure with nurse navigator in 3 weeks. (3) Pure hypercholesterolemia: Code(s): E78.00 - Pure hypercholesterolemia, unspecified Plan: Continue statins. Repeat lipid panel. (4) Lumbar degenerative disc disease: Code(s): M51.36 - Other intervertebral disc degeneration, lumbar region Plan: Continue tramadol as needed. Orders: Orders Lipid Panel Today E78.5 - Hyperlipidemia, unspecified Vitamin D 25-OH Total Today E55.9 - Vitamin D deficiency, unspecified Comprehensive Luna. Panel Fast Today I10 - Essential (primary) hypertension Thyroid Stimulating Hormone Today E66.9 - Obesity, unspecified Free T4 (Free Thyroxine) Today R79.89 - Other specified abnormal findings of blood chemistry Medications: Changed From hydralazine 100 mg PO BID 180 tabs 2RF To hydralazine 100 mg PO Q8H 90 days 270 tabs 2RF Coding Level of Care Code Est Pt Level 4 (70672) Diagnoses Malignant neoplasm of colon, unspecified part of colon C18.9 Colon location: unspecified part of colon Essential (primary) hypertension I10 Pure hypercholesterolemia E78.00 Lumbar degenerative disc disease M51.36 Additional Codes JOSETTE-7 Assessment Billing - JOSETTE-7 Assessment Tool: JOSETTE-7 Assessment 37810 ([id number]) Time Spent (min) 24
[2023-05-24 10:25] VITALS: BP 160/92; BMI 34.0
[2023-05-24 10:54] VITALS: BP 150/90
== END 2023-05-24 10:54 | disposition home or self-care (01) ==
PROVIDERS: PCP Internal Medicine; Visit Provider Internal Medicine
DX: C18.9 Malignant neoplasm of colon, unspecified (principal); I10 Essential (primary) hypertension; E78.00 Pure hypercholesterolemia, unspecified; M51.36 Other intervertebral disc degeneration, lumbar region
CPT/HCPCS: 99214

== ENCOUNTER 2023-06-16 10:06 | Outpatient (REF) | payer OTHER, SELFPAY ==
[2023-06-16 11:45] LABS: Alanine Aminotransferase 45 U/L (0-40); Albumin Level 4.1 g/dL (3.5-5.0); Alkaline Phosphatase 71 U/L (39-117); Anion Gap 13 (12-20); Aspartate Amino Transferase 31 U/L (5-37); Bilirubin Total 0.5 mg/dL (0.0-1.0); Blood Urea Nitrogen 14 mg/dL (9-16); Calcium 9.3 mg/dL (8.4-10.2); Carbon Dioxide 27 mmol/L (22-29); Chloride 107 mmol/L (96-108); Cholesterol 142 mg/dL (<200); Estimated Glomerular Filt Rate > 60; Glucose Fasting 145 mg/dL (60-99); HDL Cholesterol 42 mg/dL (>40); LDL Cholesterol Calculated 68 mg/dL (<100); Sodium 143 mmol/L (135-145); Total Protein 6.9 g/dL (6.5-8.0); Triglycerides 160 mg/dL (<150)
[2023-06-16 11:52] LABS: Free T4 (Free Thyroxine) 0.96 ng/dL (0.71-1.85); Thyroid Stimulating Hormone 0.47 uIU/mL (0.32-4.0); Vitamin D 25-OH Total 27.7 ng/mL (>30)
== END 2023-06-16 10:07 | disposition home or self-care (01) ==
LOC: HO.LAB 10:06
PROVIDERS: PCP Internal Medicine; Visit Provider Internal Medicine
DX: E78.5 Hyperlipidemia, unspecified (principal); E55.9 Vitamin D deficiency, unspecified; E66.9 Obesity, unspecified; R79.89 Other specified abnormal findings of blood chemistry; I10 Essential (primary) hypertension
CPT/HCPCS: 36415; 80053; 80061; 82306; 84439; 84443

== ENCOUNTER 2023-08-09 15:50 | Outpatient (AMB) | payer OTHER, SELFPAY ==
--- NOTE | 2023-08-09 16:01 | A.OFFPC_ITS ---
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 Accompanied by: Spouse Allergies acetaminophen [Tylenol] Allergy (Intermediate, Verified 08/09/23 16:18) itching ibuprofen Allergy (Intermediate, Verified 08/09/23 16:18) itching Medication List - Last Reconciled 08/09/23 by Amy Davila MD aspirin 81 mg PO DAILY 90 days atorvastatin 20 mg PO DAILY blood pressure test kit-large As directed blood pressure test kit-medium As directed carvedilol (Coreg) 6.25 mg PO BID 90 days cyclobenzaprine 10 mg PO BEDTIME PRN 90 days hydralazine 100 mg PO Q8H 90 days hydrochlorothiazide 25 mg PO QAM losartan 100 mg PO DAILY 90 days metformin 500 mg PO BID 90 days miscellaneous medical supply 1 ea miscellaneous ONCE [id number]-Mh-dliw-minerals (Maximum Daily Multivitamin) 1 tab PO DAILY omega-3 fatty acids 1,000 mg PO DAILY tadalafil (Cialis) 20 mg PO DAILY PRN 90 days tramadol 50 mg PO Q6H PRN 90 days Tobacco use date assessed: 05/24/23 Dental Screening Dental Screen Date: 05/24/23 HPI HPI Comments History of Present Illness Details This is a 63-year-old male with diabetes mellitus type 2 and history of colon cancer that comes today accompanied by for his physical exam. A1c within goal. LDL within goal. Blood pressure stable. Last eye exam was 2 months ago. Recently diagnosed with diabetes and has had no side effects from metformin. Had colon cancer years ago and last colonoscopy was 2020. Will have another colonoscopy this year. Denies any chest pain or shortness of breath. [facility] Medical History (Updated 08/09/23 @ 21:47 by Amy Davila MD) Ascending aorta dilatation Encounter for Medicare annual wellness exam Rash Mass of skin of back Low TSH level COVID-19 vaccine series completed GERD (gastroesophageal reflux disease) Medicare annual wellness visit, initial Lumbar degenerative disc disease Pure hypercholesterolemia Erectile dysfunction Essential hypertension Surgical History History of colon resection History of colonoscopy History of colon cancer History of back surgery Family History Father Myocardial infarction Mother Hypertension COPD (chronic obstructive pulmonary disease) Daughter Hypertension Heart problem Maternal Grandmother CAD (coronary artery disease) Stroke Paternal Grandfather Myocardial infarction Brother In good health Brother In good health Sister In good health Sister In good health Sister In good health Daughter In good health Daughter In good health Daughter In good health Social History Household Members: None Housing: Apartment Are you a primary day care attendant to a significant other at home: No Do you presently have visiting nurse or other home services: No Alcohol intake: never Patient Tobacco Use Status: Former Tobacco user Quit Date: 2014 Tobacco use type: Cigarette Years Smoked: 40 +/- e-Cigarette/Vaping Use: Never Used Second Hand Smoke Exposure: No service: No Current occupational status: disabled Cognitive needs: No Hearing needs: No Vision needs: Yes Questionnaire Thrive Questionnaire Date Thrive assessed: 05/24/23 JOSETTE-7 AMB Questionnaire JOSETTE-7 Date JOSETTE - 7 assessed: 05/24/23 Source: Developed by Drs. Handy Allen, Mesha Mcgrath, Willian Pelletier and colleagues, with an educational lacho from [employer]. Review of Systems Const All systems reviewed & are unremarkable except as noted in HPI and below Eyes Reports no additional complaints, Denies change in vision and Denies other visual disturbances Card Denies chest pain at rest, Denies chest pain with activity, Denies edema, Denies irregular heart rhythm, Denies claudication, Denies dyspnea, Denies dyspnea on exertion, Denies orthopnea, Denies paroxysmal nocturnal dyspnea and Denies slow heart rate Resp Denies cough, Denies dyspnea and Denies dyspnea on exertion GI Denies abdominal pain, Denies change in bowel habits, Denies excessive flatus, Denies nausea and Denies vomiting Denies urinary hesitancy, Denies urinary incontinence and Denies urinary urgency Neuro Denies behavioral changes, Denies confusion and Denies lack of coordination Psych Denies behavioral changes and Denies confusion Physical exam (Primary Care) Vital Signs: Last Vital Signs BP 128/80 08/09/23 16:07 BMI result Body Mass Index 33.1 Tobacco/Smoking Status: Tobacco use Status Tobacco use date assessed 05/24/23 08/09/23 16:02 Patient Tobacco Use Status Former Tobacco user 08/09/23 16:02 Tobacco use type Cigarette 08/09/23 16:02 e-Cigarette/Vaping Use Never Used 08/09/23 16:02 Thrive Assessment: Date of Thrive Assessment Date Thrive assessed 05/24/23 08/09/23 16:02 Const General: No confusion Orientation/consciousness: patient oriented x3 and No confusion HENMT Head: Yes normal to inspection, Yes normocephalic and Yes atraumatic Ears: external ears normal General nose exam: Normal external nose present and No nasal discharge present Eyes General: appearance normal, both eyes and all related structures Eyelids: Yes eyelids normal Conjunctivae: conjunctivae normal Neck Neck: Yes normal visual inspection and Yes supple Resp Effort & Inspection: normal respiratory effort Auscultation: clear to auscultation bilaterally Cardio Jugular venous distension: no JVD Rate: regular rate Rhythm: regular rhythm Heart sounds: S1 normal heart sound present and S2 normal heart sound present GI Inspection: Yes normal to inspection Palpation (GI): Soft to palpation and nontender Auscultation: normal bowel sounds Skin General skin exam: no rashes or lesions noted Neuro General: patient oriented x3, no focal motor deficits and No confusion Extrem General: Yes full ROM Psych Appearance: grossly normal Results AMB Hemoglobin A1c AMB Hemoglobin A1c 6.2 % Last Edit by JORDON Cabrera on 08/09/23 16:2 6 Results Reviewed Results Reviewed: Laboratory Last Values Hgb A1c (Clinic) 6.2 % (4.0-6.0) H 08/09/23 16:04 Assessment and Plan Assessment & Plan (1) Physical exam: Code(s): Z00.00 - Encounter for general adult medical examination without abnormal findings Plan: Repeat in a year. (2) Diabetes mellitus: Code(s): E11.9 - Type 2 diabetes mellitus without complications Plan: Continue metformin. A1c goal is equal or less than 7%. (3) Colon cancer: Comment: Diagnosed in 2014 and treated with resection in May 2015 Code(s): C18.9 - Malignant neoplasm of colon, unspecified Qualifiers: Colon location: unspecified part of colon Qualified Code(s): C18.9 - Malignant neoplasm of colon, unspecified Plan: Follow-up with gastroenterology for colonoscopy this year. Orders: Orders Microalbumin, Random (w Creat) 5 Months E11.9 - Type 2 diabetes mellitus without complications Comprehensive [place]. Panel Fast 5 Months E11.9 - Type 2 diabetes mellitus without complications AMB Hemoglobin A1c Today E11.9 - Type 2 diabetes mellitus without complications Lipid Panel 5 Months E78.5 - Hyperlipidemia, unspecified Vitamin D 25-OH Total 5 Months E55.9 - Vitamin D deficiency, unspecified Coding Level of Care Code Est Pt Prev Care 40-64y(73189) Diagnoses Physical exam Z00.00 Diabetes mellitus E11.9 Malignant neoplasm of colon, unspecified part of colon C18.9 Colon location: unspecified part of colon Time Spent (min) 35
[2023-08-09 16:07] VITALS: BP 128/80; BMI 33.1
== END 2023-08-09 16:37 | disposition home or self-care (01) ==
PROVIDERS: PCP Internal Medicine; Visit Provider Internal Medicine
DX: Z00.00 Encounter for general adult medical examination without abnormal findings (principal); E11.9 Type 2 diabetes mellitus without complications; C18.9 Malignant neoplasm of colon, unspecified
CPT/HCPCS: 83036; 99396

== ENCOUNTER 2023-11-28 17:29 | Emergency (ER) | payer OTHER, SELFPAY ==
--- NOTE | ~2023-11-28 | CT_ITS ---
EXAMINATION: CT HEAD WITHOUT CONTRAST CLINICAL INFORMATION: Acute onset right occipital pain COMPARISON: CT head 04/18/2021 TECHNIQUE: Contiguous axial imaging was performed from the skull base to vertex without intravenous administration of contrast. This CT examination was performed using dose optimization techniques as appropriate, variously including the following: *Automated exposure control *Adjustment of mA and/or kV according to patient size (this includes techniques or standardized protocols for targeted exams where dose is matched to indication/reason for exam; i.e. extremities or head) *Use of iterative reconstruction technique DLP: 760 mGy-cm FINDINGS: There is no evidence of acute intracranial hemorrhage or edematous territorial infarction. The santiago-white matter association appears preserved. Few scattered hypodensities in the periventricular and deep white matter likely representing mild chronic microangiopathy. The ventricles and cortical sulci are proportional without significant volume loss. There is no mass effect or midline shift. No acute extra-axial collection. Again noted mild soft tissue thickening along the right parieto-occipital scalp and left occipital scalp.. No acute osseous or soft tissue abnormality. Mild cortical thickening involving the right maxillary sinus and ethmoid air cells. Otherwise the paranasal sinuses are well aerated. The mastoids appear clear. CT/CT head/brain wo IV con IMPRESSION: No acute intracranial pathology. Electronically signed by: Rj Adkins MD 11/28/2023 07:45 PM EDT
[2023-11-28 17:35] VITALS: BP 133/87; PULSE 78; O2SAT 97
[2023-11-28 17:40] VITALS: BP 128/65; PULSE 75; RESP 23; TEMP 36.4; O2SAT 94
[2023-11-28 17:41] VITALS: BMI 33.8
--- NOTE | 2023-11-28 17:43 | ED.HA ---
HPI - Headache General Chief Complaint: Headache Stated Complaint: headache/ R side head pressure Time Seen by Provider: 11/28/23 17:41 Source: patient Mode of arrival: ambulatory Limitations: no limitations History of Present Illness ED Provider: marin BROWNE Narrative: Patient's history of hypertension comes here for acute onset of severe headache on the right temporal area started 22:30 yesterday with no nausea or photosensitivity no vomiting had similar but severe pain in 2019 med his blood pressure was evaluated questionable TIA blood pressure at home was in 150s arrival 128/65 no focal weak no earache or discharge from ear , no recent injury no light sensitivity Related Data Home Medications ?Medication ?Instructions ?Recorded ?Confirmed uouyxusczecw-Ju-kmyk-minerals 18 1 tab PO DAILY 12/23/20 08/09/23 mg-0.4 mg tablet (Maximum Daily Multivitamin) omega-3 fatty acids 1,000 mg 1,000 mg PO DAILY 08/06/21 08/09/23 capsule Previous Rx's ?Medication ?Instructions ?Recorded blood pressure test kit-large #1 ea 05/28/20 tadalafil 20 mg tablet (Cialis) 20 mg PO DAILY PRN sexual activity 04/28/22 90 days #90 tabs carvedilol 6.25 mg tablet (Coreg) 6.25 mg PO BID 90 days #180 tabs 12/28/22 blood pressure test kit-medium #1 02/17/23 miscellaneous medical supply 1 ea miscellaneous ONCE #1 ea 02/17/23 cyclobenzaprine 10 mg tablet 10 mg PO BEDTIME PRN for muscle 03/28/23 spasm 90 days #90 tabs losartan 100 mg tablet 100 mg PO DAILY 90 days #90 tabs 03/28/23 aspirin 81 mg tablet,delayed 81 mg PO DAILY 90 days #90 tabs 04/27/23 release hydralazine 100 mg tablet 100 mg PO Q8H 90 days #270 tabs 05/24/23 atorvastatin 20 mg tablet 20 mg PO DAILY #90 tabs 06/17/23 metformin 500 mg tablet 500 mg PO BID 90 days #180 tabs 06/18/23 blood sugar diagnostic (FreeStyle #100 ea 08/29/23 Lite Strips) blood-glucose meter (FreeStyle #1 ea 08/29/23 Lite Meter kit) lancets 28 gauge (FreeStyle #100 ea 08/29/23 Lancets) tramadol 50 mg tablet 50 mg PO Q6H PRN pain 90 days #360 11/20/23 tabs hydrochlorothiazide 25 mg tablet 25 mg PO QAM #90 tabs 11/24/23 cyclobenzaprine 10 mg tablet 10 mg PO Q8H #20 tabs 11/28/23 ibuprofen 600 mg tablet 600 mg PO Q6H PRN fever or pain 11/28/23 #30 tabs Allergies Allergy/AdvReac Type Severity Reaction Status Date / Time No Known Allergies Allergy Verified 11/28/23 20:13 Review of Systems Review of Systems: Yes all other systems are reviewed and are negative [facility] Past Medical History Medical History Ascending aorta dilatation Encounter for Medicare annual wellness exam Rash Mass of skin of back Low TSH level COVID-19 vaccine series completed GERD (gastroesophageal reflux disease) Medicare annual wellness visit, initial Lumbar degenerative disc disease Pure hypercholesterolemia Erectile dysfunction Essential hypertension Surgical History History of colon resection History of colonoscopy History of colon cancer History of back surgery Family History Family History Father Myocardial infarction Mother Hypertension COPD (chronic obstructive pulmonary disease) Daughter Hypertension Heart problem Maternal Grandmother CAD (coronary artery disease) Stroke Paternal Grandfather Myocardial infarction Brother In good health Brother In good health Sister In good health Sister In good health Sister In good health Daughter In good health Daughter In good health Daughter In good health Social History Social History Household Members: None Housing: Apartment Are you a primary ambulatory care nurse to a significant other at home: No Do you presently have visiting nurse or other home services: No Alcohol intake: never Patient Tobacco Use Status: Former Tobacco user Tobacco use type: Cigarette Years Smoked: 40 +/- Smoked in Last 30 Days: No e-Cigarette/Vaping Use: Never Used Second Hand Smoke Exposure: No Any prior treatment program specific to substance use: No Advance Directives: No Advance Directives Information Provided: No Do you have a plan to hurt others: No Plan service: No Current occupational status: disabled Cognitive needs: No Hearing needs: No Vision needs: Yes Physical Exam Vital Signs: Vital Signs: Last Vital Signs Temp 97.6 F 11/28/23 17:40 Pulse 75 11/28/23 17:40 Resp 23 H 11/28/23 17:40 BP 128/65 11/28/23 17:40 Pulse Ox 94 11/28/23 17:40 O2 Del Method Room Air 11/28/23 17:40 BMI result Body Mass Index 33.8 Appearance: Alert. Oriented X3. No acute distress. Eyes: PERRLA, No Nystagmus ENT: Pharynx normal. Oral Mucosa moist Neck: Normal inspection. Neck supple. CVS: Normal heart rate and rhythm. Pulses normal. Respiratory: No respiratory distress. Equal air entry bilateral, no wheezing/rales/rhonchi Abdomen: Soft and nontender. Bowel sounds are present, no mass palpable, no CVA tenderness Skin: Skin warm and dry. Normal skin color. Normal skin turgor. Extremities: No lower extremity edema. No calf tenderness Neuro: Oriented X 3. No motor deficit. No sensory deficit.No cerebellar signs , cranial nerves II-XII intact Medications Administered Discontinued Medications Generic Name Dose Route Start Last Admin Trade Name Freq PRN Reason Stop Dose Admin Acetaminophen/Butalbital/Caffeine 1 tab 11/28/23 20:07 11/28/23 20:29 Butalb/Acetamin/Caff 50/325/40 Tablet PO 11/28/23 20:08 1 tab ONCE ONE Administration Ketorolac Tromethamine 30 mg 11/28/23 20:13 11/28/23 20:29 Ketorolac Tromethamine 30 Mg/Ml Vial IVPUSH 11/28/23 20:14 30 mg ONCE ONE Administration Morphine Sulfate 4 mg 11/28/23 17:51 11/28/23 18:45 Morphine Sulfate 4 Mg/Ml Cartridge IVPUSH 11/28/23 17:52 4 mg ONCE ONE Administration Protocol Ondansetron HCl 4 mg 11/28/23 17:51 11/28/23 18:45 Ondansetron Hcl 4 Mg/2 Ml Vial IVPUSH 11/28/23 17:52 4 mg ONCE ONE Administration Medical Decision Making Medical Decision Making MDM Narrative: Patient's headache on the right side specially at the back of the head no temporal artery tenderness no rash CT scan negative for acute clear musculoskeletal patient has says he has a back pain also and the side of the right neck patient's said it was only 43 without tenderness at temporal artery Differential Diagnosis Differential Diagnoses: The differential diagnosis associated with the presentation includes Subarachnoid bleed/musculoskeletal pain/shingles/temporal arteritis Lab Data MDM Lab Attestation statement: I reviewed the patient's lab results. 11/28/23 19:40 11/28/23 19:40 Labs: Lab Results 11/28/23 Range/Units 19:40 WBC 7.5 (4.8-10.8) X10*3/uL RBC 3.88 L (4.60-5.80) X10*6/uL Hgb 12.6 L (14.0-18.0) g/dl Hct 35.7 L (42.0-52.0) % MCV 92.0 (80.0-98.0) fL MCH 32.5 (27.0-33.0) pg MCHC 35.3 (31.0-36.0) g/dl RDW 11.9 (11.0-16.0) % Plt Count 208 (160-400) X10*3/uL MPV 9.2 L (9.4-12.4) fL Immature Gran % (Auto) 0.3 (0.0-0.4) % Neut % (Auto) 67.3 (45-73) % Lymph % (Auto) 19.4 L (20-40) % [place] % (Auto) 11.2 H (2-11) % Eos % (Auto) 1.5 (0-4) % Baso % (Auto) 0.3 (0-2) % Lymph # (Auto) 1.5 (1.2-4.9) X10*3/uL [place] # (Auto) 0.8 (0.1-1.2) X10*3/uL Eos # (Auto) 0.1 (0.0-0.4) X10*3/uL Baso # (Auto) 0.0 (0.0-0.2) X10*3/uL Abs Immat Gran (auto) 0.02 (0.00-0.03) X10*3/uL Absolute Neuts (auto) 5.1 (2.0-8.3) x10*3/uL Absolute Nucleated RBC 0.000 (0.0-0.012) X10*3/uL Nucleated RBC % (auto) 0.0 (0.0-0.2) /100WBC ESR 43 H (0-15) MM/HR Sodium 142 (135-145) mmol/L Potassium 3.4 (3.3-5.1) mmol/L Chloride 103 (96-108) mmol/L Carbon Dioxide 30 H (22-29) mmol/L Anion Gap 12 (12-20) BUN 11 (9-16) mg/dL Creatinine 0.93 (0.5-1.4) mg/dL Estim Creat Clear Calc 106.9 Estimated GFR > 60 Random Glucose 93 (60-115) mg/dL Calcium 9.9 D (8.4-10.2) mg/dL Total Bilirubin 0.5 (0.0-1.0) mg/dL AST 22 (5-37) U/L ALT 32 (0-40) U/L Alkaline Phosphatase 71 (39-117) U/L Total Protein 7.1 (6.5-8.0) g/dL Albumin 4.2 (3.5-5.0) g/dL Independent Interpretation I performed an independent interpretation of an: CT Scan Radiology Impression Discussion of test interpretation with radiology: I have reviewed the radiologist's reading. Radiologist Impression: CT/CT head/brain wo IV con IMPRESSION: No acute intracranial pathology. Electronically signed by: Rj Adkins MD 11/28/2023 07:45 PM EDT Discharge Plan Discharge Clinical Impression: Headache Patient Disposition: Home, Self-Care Instructions: Acute Headache (ED) Additional Instructions: Your CT scan is negative for stroke or bleed Pain in that areas likely musculoskeletal Take pain medication muscle relaxant apply ice Follow up with your PCP if not better Prescriptions: New cyclobenzaprine 10 mg tablet 10 mg PO Q8H Qty: 20 0RF ibuprofen 600 mg tablet 600 mg PO Q6H PRN (Reason: fever or pain) Qty: 30 0RF No Action tadalafil [Cialis] 20 mg tablet 20 mg PO DAILY PRN (Reason: sexual activity) 90 Days Qty: 90 4RF Rx Instructions: administer approximately 30min before sexual activity; do not use more than 1 dose per 24hrs cyclobenzaprine 10 mg tablet 10 mg PO BEDTIME PRN (Reason: for muscle spasm) 90 Days Qty: 90 4RF losartan 100 mg tablet 100 mg PO DAILY 90 Days Qty: 90 1RF aspirin 81 mg tablet,delayed release (DR/EC) 81 mg PO DAILY 90 Days Qty: 90 3RF atorvastatin 20 mg tablet 20 mg PO DAILY Qty: 90 3RF metformin 500 mg tablet 500 mg PO BID 90 Days Qty: 180 1RF (DME) blood-glucose meter [FreeStyle Lite Meter] Kit See Rx Instructions .Route Qty: 1 0RF Rx Instructions: As directed (DME) FreeStyle Lite Strips Strip See Rx Instructions .Route Qty: 100 3RF Rx Instructions: Use 1 test strip once a day (DME) lancets [FreeStyle Lancets] 28 gauge misc See Rx Instructions .Route Qty: 100 3RF Rx Instructions: Use 1 lancet once a day tramadol 50 mg tablet 50 mg PO Q6H PRN (Reason: pain) 90 Days Qty: 360 0RF hydrochlorothiazide 25 mg tablet 25 mg PO QAM Qty: 90 3RF (DME) blood pressure test kit-large Kit See Rx Instructions .ROUTE .MEDSUPPLY Qty: 1 0RF Rx Instructions: As directed hydralazine 100 mg tablet 100 mg PO Q8H 90 Days Qty: 270 2RF (DME) blood pressure test kit-medium Kit See Rx Instructions miscellaneous .MEDSUPPLY Qty: 1 0RF Rx Instructions: As directed miscellaneous medical supply Kit 1 ea miscellaneous ONCE Qty: 1 0RF Rx Instructions: medication pill box. Maximum Daily Multivitamin 18-0.4 mg tablet 1 tab PO DAILY omega-3 fatty acids 1,000 mg capsule 1,000 mg PO DAILY carvedilol [Coreg] 6.25 mg tablet 6.25 mg PO BID 90 Days Qty: 180 3RF Rx Instructions: must administer with a meal/food Print Language: Malay
[2023-11-28] MEDS: Morphine Sulfate 4 MG/ML CARTRIDGE IVPUSH (18:45)
[2023-11-28] MEDS: ondansetron HCL 4 MG/2 ML VIAL IVPUSH (18:45)
--- NOTE | 2023-11-28 18:46 | PC.NURSE ---
pt medicated for 01/10 rt sided headache float rn
[2023-11-28 19:44] LABS: MANUAL DIFF FLAG NO
[2023-11-28 19:46] LABS: Basophils Percent Auto 0.3 % (0-2); Eosinophils Absolute Auto 0.1 X10*3/uL (0.0-0.4); Eosinophils Percent Auto 1.5 % (0-4); Hematocrit 35.7 % (42.0-52.0); Hemoglobin 12.6 g/dl (14.0-18.0); Imm Gran Abs Auto 0.02 X10*3/uL (0.00-0.03); Imm Gran Pct Auto 0.3 % (0.0-0.4); Lymphocytes Absolute Auto 1.5 X10*3/uL (1.2-4.9); Lymphocytes Percent Auto 19.4 % (20-40); Mean Corpuscular HGB Conc 35.3 g/dl (31.0-36.0); Mean Corpuscular Hemoglobin 32.5 pg (27.0-33.0); Mean Platelet Volume 9.2 fL (9.4-12.4); Monocytes Absolute Auto 0.8 X10*3/uL (0.1-1.2); Monocytes Percent Auto 11.2 % (2-11); Neutrophils Absolute Auto 5.1 x10*3/uL (2.0-8.3); Neutrophils Percent Auto 67.3 % (45-73); Platelet Count 208 X10*3/uL (160-400); Red Blood Count 3.88 X10*6/uL (4.60-5.80); Red Cell Distribution Width 11.9 % (11.0-16.0); White Blood Count 7.5 X10*3/uL (4.8-10.8)
[2023-11-28 19:59] LABS: Alanine Aminotransferase 32 U/L (0-40); Albumin Level 4.2 g/dL (3.5-5.0); Alkaline Phosphatase 71 U/L (39-117); Anion Gap 12 (12-20); Aspartate Amino Transferase 22 U/L (5-37); Bilirubin Total 0.5 mg/dL (0.0-1.0); Blood Urea Nitrogen 11 mg/dL (9-16); Calcium 9.9 mg/dL (8.4-10.2); Carbon Dioxide 30 mmol/L (22-29); Chloride 103 mmol/L (96-108); Creatinine Clr Calc Pharmacy 106.9; Estimated Glomerular Filt Rate > 60; Glucose Random 93 mg/dL (60-115); Potassium 3.4 mmol/L (3.3-5.1); Sodium 142 mmol/L (135-145); Total Protein 7.1 g/dL (6.5-8.0)
--- NOTE | 2023-11-28 20:11 | PC.NURSE ---
pt reports WOLFF improved for short time with med per mar and now reporting 12/11 WOLFF. neuros intact. aware.
[2023-11-28] MEDS: Butalb/Acetamin/Caff 50/325/40 TABLET 1 TAB PO (20:29)
[2023-11-28] MEDS: Ketorolac Tromethamine 30 MG/ML VIAL IVPUSH (20:29)
[2023-11-28 20:39] LABS: Erythrocyte Sedimentation Rate 43 MM/HR (0-15)
[2023-11-28 20:41] VITALS: BP 147/83; PULSE 65; RESP 13; TEMP 37.1; O2SAT 95
[2023-11-28 21:00] VITALS: BP 147/83; PULSE 65; RESP 13; TEMP 37.1; O2SAT 95
== END 2023-11-28 21:00 | disposition home or self-care (01) ==
PROVIDERS: Emergency Provider Internal Medicine; PCP Internal Medicine
DX: R51.9 Headache, unspecified (principal); Z87.891 Personal history of nicotine dependence; Z79.899 Other long term (current) drug therapy
CPT/HCPCS: 36415; 70450; 80053; 85025; 85652; 96374; 96375; 99284; J1885; J2270; J2405

== ENCOUNTER 2023-12-19 10:05 | Outpatient (AMB) | payer OTHER, SELFPAY ==
[2023-12-19 10:09] VITALS: BP 138/84; PULSE 66; BMI 33.1
--- NOTE | 2023-12-19 10:09 | MHC.OFFVIS ---
Vital Signs 12/19/23 10:09 Height 6 ft Weight 243 lb 13.3 oz BMI 33.1 BP 138/84 Blood Pressure Location Lt brachial Position Sitting Pulse 66 Intake Visit Reasons: 1 yr f/up Herb Digger Required: No Accompanied by: Spouse Allergies No Known Allergies Allergy (Verified 11/28/23 20:13) Medication List - Last Reconciled 12/19/23 by Wilbert Varela MD aspirin 81 mg PO DAILY 90 days atorvastatin 20 mg PO DAILY blood pressure test kit-large As directed blood pressure test kit-medium As directed blood sugar diagnostic (FreeStyle Lite Strips) Use 1 test strip once a day blood-glucose meter (FreeStyle Lite Meter kit) As directed carvedilol (Coreg) 6.25 mg PO BID 90 days cyclobenzaprine 10 mg PO Q8H hydralazine 100 mg PO Q8H 90 days hydrochlorothiazide 25 mg PO QAM ibuprofen 600 mg PO Q6H PRN lancets (FreeStyle Lancets) Use 1 lancet once a day losartan 100 mg PO DAILY 90 days metformin 500 mg PO BID 90 days miscellaneous medical supply 1 ea miscellaneous ONCE pmbgpmaoxlwp-Tr-fnqk-minerals (Maximum Daily Multivitamin) 1 tab PO DAILY omega-3 fatty acids 1,000 mg PO DAILY tadalafil (Cialis) 20 mg PO DAILY PRN 90 days tramadol 50 mg PO Q6H PRN 90 days HPI Comments Details: Leandro returns for follow-up regarding hypertension. To recall, few years ago, when he went for his brother's in [place], patient developed very high blood pressure and had to be hospitalized locally. At that time, main symptom was apparently headache. Then he underwent extensive testing including carotid studies, brain MRI, cardiac catheterization among others. Since then, he has been on blood pressure medications. Since last seen, he states he feels fine. No specific complaints like angina or shortness of breath or any other cardiac concerns. [facility] Medical History Ascending aorta dilatation Encounter for Medicare annual wellness exam Rash Mass of skin of back Low TSH level COVID-19 vaccine series completed GERD (gastroesophageal reflux disease) Medicare annual wellness visit, initial Lumbar degenerative disc disease Pure hypercholesterolemia Erectile dysfunction Essential hypertension Surgical History History of colon resection History of colonoscopy History of colon cancer History of back surgery Family History Father Myocardial infarction Mother Hypertension COPD (chronic obstructive pulmonary disease) Daughter Hypertension Heart problem Maternal Grandmother CAD (coronary artery disease) Stroke Paternal Grandfather Myocardial infarction Brother In good health Brother In good health Sister In good health Sister In good health Sister In good health Daughter In good health Daughter In good health Daughter In good health Social History Household Members: None Housing: Apartment Are you a primary college and career counselor to a significant other at home: No Do you presently have visiting nurse or other home services: No Alcohol intake: never Patient Tobacco Use Status: Former Tobacco user Tobacco use type: Cigarette Years Smoked: 40 +/- e-Cigarette/Vaping Use: Never Used Second Hand Smoke Exposure: No service: No Current occupational status: disabled Cognitive needs: No Hearing needs: No Vision needs: Yes Review of Systems Const Denies chills, Denies fatigue, Denies fever(s), Denies weight gain and Denies weight loss ENT Denies dizziness Card Denies chest pain, Denies leg edema, Denies lightheadedness, Denies palpitations, Denies dyspnea on exertion, Denies orthopnea and Denies other Resp Denies cough and Denies dyspnea on exertion GI Denies hematochezia and Denies change in stool character Musc Denies abnormal gait, Denies muscle weakness, Denies numbness, Denies radiating pain into limb and Denies tingling Neuro Denies abnormal gait, Denies dizziness, Denies numbness and Denies tingling Endo Denies fatigue and Denies palpitations Physical Exam Vital Signs: Last Vital Signs Pulse 66 12/19/23 10:09 BP 138/84 12/19/23 10:09 BMI result Body Mass Index 33.1 Const General: comfortable and no acute distress Orientation/consciousness: patient oriented x3 HEENT Other: Unremarkable Head: Yes normal to inspection Neck Neck: Yes normal visual inspection Chest Chest palpation & inspection: normal inspection of the chest Resp Auscultation: clear to auscultation bilaterally Cardio Palpation: normal PMI Heart sounds: S1 normal heart sound present, S2 normal heart sound present, no gallops, no murmurs and no rubs GI Palpation (GI): Soft to palpation Back/Spine/Pelvis Other: unremarkable Skin General skin exam: no rashes or lesions noted Neuro General: patient oriented x3 Extrem General: Yes normal to inspection Psych Mental Status: mental status grossly normal Office Procedures EKG Details: EKG with underlying sinus rhythm at 66/Min; leftward axis; nonspecific ST-T changes and otherwise unremarkable. [place] [address]-[id number], Complete Quality Reporting (2019) Adult ([facility] 138/05/25/68) Smoking risk assessment performed?: Yes Patient Tobacco Use Status: Former Tobacco user Assessment & Plan Assessment & Plan (1) Essential (primary) hypertension: Code(s): I10 - Essential (primary) hypertension Category: Medical Plan: Current regimen seems to include carvedilol, hydrochlorothiazide, hydralazine, losartan. . No further changes at this time. Overall, seems to be better than before. (2) LVH (left ventricular hypertrophy): Code(s): I51.7 - Cardiomegaly Category: Medical Plan: Suspected to be all related to hypertension. He does not have any clinical symptoms or signs of diastolic congestive heart failure. (3) Ascending aorta dilatation: Code(s): I77.810 - Thoracic aortic ectasia Category: Medical Plan: This is stable. Ascending aortic size 4 cm. Probably acceptable considering his height and weight. We can recheck in a 2-3 years. Coding Level of Care Code Est Pt Level 3 (92409) Diagnoses Essential (primary) hypertension I10 LVH (left ventricular hypertrophy) I51.7 Ascending aorta dilatation I77.810 CPT Codes EKG - CPT: 44172-Njxqrnzlnsongsgxl, Complete ([id number])
== END 2023-12-19 10:40 | disposition home or self-care (01) ==
PROVIDERS: PCP Internal Medicine; Visit Provider Internal Medicine
DX: I10 Essential (primary) hypertension (principal); I51.7 Cardiomegaly; I77.810 Thoracic aortic ectasia
CPT/HCPCS: 93010; 99213

== ENCOUNTER → 2023-12-19 10:05 | Outpatient (BNVA) | payer OTHER, SELFPAY | PROVIDERS: PCP Internal Medicine; Visit Provider Internal Medicine | DX: I10 Essential (primary) hypertension (principal); I51.7 Cardiomegaly; I77.810 Thoracic aortic ectasia | CPT/HCPCS: 93005; 99212 ==

== ENCOUNTER 2024-01-16 10:56 | Outpatient (AMB) | payer OTHER, SELFPAY ==
[2024-01-16 10:59] VITALS: BP 152/90; PULSE 65; O2SAT 95; BMI 33.2
--- NOTE | 2024-01-16 10:59 | MHC.PC.OV ---
Vital Signs 01/16/24 10:59 Height 6 ft Weight 245 lb BMI 33.2 BP 152/90 H Blood Pressure Location Lt brachial Position Sitting Pulse 65 Pulse Source Pulse Oximeter Pulse Oximetry (%) 95 Oxygen Delivery Method Room Air Intake Visit Reasons: dm,bp Gta Required: No Accompanied by: Self / Same As Patient Allergies No Known Allergies Allergy (Verified 01/16/24 11:12) Medication List - Last Reconciled 01/16/24 by Amy Davila MD aspirin 81 mg PO DAILY 90 days atorvastatin 20 mg PO DAILY blood pressure test kit-large As directed blood pressure test kit-medium As directed blood sugar diagnostic (FreeStyle Lite Strips) Use 1 test strip once a day blood-glucose meter (FreeStyle Lite Meter kit) As directed carvedilol (Coreg) 6.25 mg PO BID 90 days cyclobenzaprine 10 mg PO Q8H hydralazine 100 mg PO Q8H 90 days hydrochlorothiazide 25 mg PO QAM ibuprofen 600 mg PO Q6H PRN lancets (FreeStyle Lancets) Use 1 lancet once a day losartan 100 mg PO DAILY 90 days metformin 500 mg PO BID 90 days miscellaneous medical supply 1 ea miscellaneous ONCE vyyqotlenoup-Ji-tivw-minerals (Maximum Daily Multivitamin) 1 tab PO DAILY omega-3 fatty acids 1,000 mg PO DAILY tadalafil (Cialis) 20 mg PO DAILY PRN 90 days tramadol 50 mg PO Q6H PRN 90 days Tobacco use date assessed: 05/24/23 Dental Screening Dental Screen Date: 05/24/23 HPI HPI Comments History of Present Illness Details This is a 63-year-old male with diabetes mellitus type 2, hypertension, pure hypercholesterolemia and lumbar degenerative disc disease that comes today for follow-up on his conditions. A1c within goal. Blood pressure elevated and will be recheck in 3 weeks by nurse navigator. Lipid panel will be order and his LDL goal should be less than 70. On tramadol as needed for lumbar degenerative disc disease which he is aware is an opiate that can cause addiction and sedation. Denies any chest pain or shortness on breath. [facility] Medical History (Updated 01/16/24 @ 12:12 by Amy Davila MD) Ascending aorta dilatation Encounter for Medicare annual wellness exam Rash Mass of skin of back Low TSH level COVID-19 vaccine series completed GERD (gastroesophageal reflux disease) Medicare annual wellness visit, initial Lumbar degenerative disc disease Pure hypercholesterolemia Erectile dysfunction Essential hypertension Surgical History History of colon resection History of colonoscopy History of colon cancer History of back surgery Family History Father Myocardial infarction Mother Hypertension COPD (chronic obstructive pulmonary disease) Daughter Hypertension Heart problem Maternal Grandmother CAD (coronary artery disease) Stroke Paternal Grandfather Myocardial infarction Brother In good health Brother In good health Sister In good health Sister In good health Sister In good health Daughter In good health Daughter In good health Daughter In good health Social History Household Members: None Housing: Apartment Are you a primary managed care coordinator to a significant other at home: No Do you presently have visiting nurse or other home services: No Alcohol intake: never Patient Tobacco Use Status: Former Tobacco user Tobacco use type: Cigarette Years Smoked: 40 +/- e-Cigarette/Vaping Use: Never Used Second Hand Smoke Exposure: No service: No Current occupational status: disabled Cognitive needs: No Hearing needs: No Vision needs: Yes Questionnaire Thrive Questionnaire Date Thrive assessed: 05/24/23 Are you currently unemployed and looking for a job?: I choose not to answer this question AUDIT C Alcohol Use Questionnaire (AUDIT-C) 1. How often do you have a drink containing alcohol?: Never Total Score: 0 Score Reviewed/Action Taken: No JOSETTE-7 AMB Questionnaire JOSETTE-7 Date JOSETTE - 7 assessed: 05/24/23 Source: Developed by Drs. Handy Allen, Mesha Mcgrath, Willian Pelletier and colleagues, with an educational lacho from [employer]. Review of Systems Const All systems reviewed & are unremarkable except as noted in HPI and below Card Denies chest pain at rest, Denies chest pain with activity, Denies edema, Denies irregular heart rhythm, Denies claudication, Denies dyspnea, Denies dyspnea on exertion, Denies orthopnea, Denies paroxysmal nocturnal dyspnea and Denies slow heart rate Resp Denies cough, Denies dyspnea and Denies dyspnea on exertion Physical exam (Primary Care) Vital Signs: Last Vital Signs Pulse 65 01/16/24 10:59 BP 152/90 H 01/16/24 10:59 Pulse Ox 95 01/16/24 10:59 Oxygen Delivery Method Room Air 01/16/24 10:59 BMI result Body Mass Index 33.2 BMI Assessment/Plan discussion: High BMI High, discussed plan: lifestyle, weight reduction, dietary and physical activity Tobacco/Smoking Status: Tobacco use Status Tobacco use date assessed 05/24/23 01/16/24 11:06 Patient Tobacco Use Status Former Tobacco user 01/16/24 11:06 Tobacco use type Cigarette 01/16/24 11:06 e-Cigarette/Vaping Use Never Used 01/16/24 11:06 Thrive Assessment: Date of Thrive Assessment Date Thrive assessed 05/24/23 01/16/24 11:06 Resp Effort & Inspection: normal respiratory effort Auscultation: clear to auscultation bilaterally Cardio Jugular venous distension: no JVD Rate: regular rate Rhythm: regular rhythm Heart sounds: S1 normal heart sound present and S2 normal heart sound present Extrem General: Yes full ROM Office Procedures Flu Questionnaire Does the patient have a severe egg allergy?: No Does the patient have severe life threatening allergies?: No Does the patient have a fever or illness today?: No Has the patient ever had Guillain-[place] Syndrome?: No Has the patient ever had any past reaction to a flu shot?: No Results AMB Hemoglobin A1c AMB Hemoglobin A1c 5.7 % Last Edit by PRAKASH Weldon on 01/16/24 11:12 Immunizations Fluarix Triv 9032-2461 (PF) 45 mcg (15 mcg x 3)/0.5 mL IM syringe Performing Provider: Amy Davila MD [facility] [place] [facility] Administered by: PRAKASH Weldon on 01/16/24 11:11 Dose Route Admin Location Dispensed Lot Number Expiration Date [facility] Trimming Caser 0.5 mL IM Left Deltoid 0.5 mL [id number] 09/30/24 [id number] vLine VIS Given Date VIS Provided VIS Publication Date 01/16/24 Single Vaccine 20 Eligibility Eligibility Date Funding Source Not [facility] Eligible 01/16/24 Private Results Reviewed Results Reviewed: Laboratory Last Values Hgb A1c (Clinic) 5.7 % (4.0-6.0) 01/16/24 10:48 Coding Level of Care Code Est Pt Level 4 (10652) Complex EM visit Add On G2211 Diagnoses Type 2 diabetes mellitus without complication, without long-term current use of insulin E11.9 Diabetes mellitus type: type 2 Diabetes mellitus adjunct faculty for medical terminology insulin use: without detention use Diabetes mellitus complication status: without complication Essential (primary) hypertension I10 Lumbar degenerative disc disease M51.36 Pure hypercholesterolemia E78.00 Time Spent (min) 23 Assessment & Plan Assessment & Plan (1) Diabetes mellitus: Code(s): E11.9 - Type 2 diabetes mellitus without complications Category: Medical Qualifiers: Diabetes mellitus type: type 2 Diabetes mellitus adjunct faculty for medical terminology insulin use: without adjunct faculty for medical terminology use Diabetes mellitus complication status: without complication Qualified Code(s): E11.9 - Type 2 diabetes mellitus without complications Plan: Continue metformin. A1c goal is equal or less than 7%. (2) Essential (primary) hypertension: Code(s): I10 - Essential (primary) hypertension Category: Medical Plan: Continue losartan. Blood pressure goal is equal or less than 130/80. Recheck blood pressure with nurse navigator in 3 weeks. He was using hydralazine twice a day and he will start using a 3 times a day. (3) Lumbar degenerative disc disease: Code(s): M51.36 - Other intervertebral disc degeneration, lumbar region Category: Medical Plan: Continue tramadol as needed. (4) Pure hypercholesterolemia: Code(s): E78.00 - Pure hypercholesterolemia, unspecified Category: Medical Plan: Continue statins. Repeat lipid panel. LDL goal is less than 70. Orders: Orders IRON PROFILE 4 Months D64.9 - Anemia, unspecified Lipid Panel 4 Months E78.5 - Hyperlipidemia, unspecified Microalbumin, Random (w Creat) 4 Months R80.9 - Proteinuria, unspecified AMB Hemoglobin A1c Today E11.9 - Type 2 diabetes mellitus without complications Influenza [id number] Immunization Today Z23 - Encounter for immunization Complete Blood Count Auto Diff 4 Months D64.9 - Anemia, unspecified Vitamin D 25-OH Total 4 Months E55.9 - Vitamin D deficiency, unspecified Comprehensive [place]. Panel Fast 4 Months E11.9 - Type 2 diabetes mellitus without complications
== END 2024-01-16 11:26 | disposition home or self-care (01) ==
PROVIDERS: PCP Internal Medicine; Visit Provider Internal Medicine
DX: E11.9 Type 2 diabetes mellitus without complications (principal); I10 Essential (primary) hypertension; M51.369 Other intervertebral disc degeneration, lumbar region without mention of lumbar back pain or lower extremity pain; E78.00 Pure hypercholesterolemia, unspecified

== ENCOUNTER → 2024-01-16 10:56 | Outpatient (BNVA) | payer OTHER, SELFPAY | PROVIDERS: PCP Internal Medicine; Visit Provider Internal Medicine | DX: Z23 Encounter for immunization (principal); E11.9 Type 2 diabetes mellitus without complications; I10 Essential (primary) hypertension; E78.00 Pure hypercholesterolemia, unspecified; M51.369 Other intervertebral disc degeneration, lumbar region without mention of lumbar back pain or lower extremity pain | CPT/HCPCS: 83036; 90471; 90656; 99212 ==

== ENCOUNTER → 2024-02-02 10:28 | Outpatient (BNVA) | payer OTHER, SELFPAY | PROVIDERS: PCP Internal Medicine ==

== ENCOUNTER → 2024-02-16 10:30 | Outpatient (BNVA) | payer OTHER, SELFPAY | PROVIDERS: PCP Internal Medicine ==

== ENCOUNTER 2024-05-29 10:28 | Outpatient (REF) | payer OTHER, SELFPAY ==
[2024-05-29 11:23] LABS: MANUAL DIFF FLAG NO
[2024-05-29 11:30] LABS: Basophils Percent Auto 0.4 % (0-2); Eosinophils Absolute Auto 0.1 X10*3/uL (0.0-0.4); Eosinophils Percent Auto 1.5 % (0-4); Hematocrit 35.4 % (42.0-52.0); Hemoglobin 12.1 g/dl (14.0-18.0); Imm Gran Abs Auto 0.02 X10*3/uL (0.00-0.03); Imm Gran Pct Auto 0.4 % (0.0-0.4); Lymphocytes Absolute Auto 1.1 X10*3/uL (1.2-4.9); Lymphocytes Percent Auto 20.6 % (20-40); Mean Corpuscular HGB Conc 34.2 g/dl (31.0-36.0); Mean Corpuscular Hemoglobin 31.6 pg (27.0-33.0); Mean Corpuscular Volume 92.4 fL (80.0-98.0); Mean Platelet Volume 9.3 fL (9.4-12.4); Monocytes Absolute Auto 0.5 X10*3/uL (0.1-1.2); Monocytes Percent Auto 8.9 % (2-11); Neutrophils Absolute Auto 3.7 x10*3/uL (2.0-8.3); Neutrophils Percent Auto 68.2 % (45-73); Platelet Count 205 X10*3/uL (160-400); Red Blood Count 3.83 X10*6/uL (4.60-5.80); Red Cell Distribution Width 12.3 % (11.0-16.0); White Blood Count 5.5 X10*3/uL (4.8-10.8)
[2024-05-29 12:12] LABS: Alanine Aminotransferase 29 U/L (0-40); Albumin Level 4.2 g/dL (3.5-5.0); Anion Gap 11 (12-20); Aspartate Amino Transferase 32 U/L (5-37); Bilirubin Total 0.6 mg/dL (0.0-1.0); Blood Urea Nitrogen 21 mg/dL (9-16); Calcium 9.2 mg/dL (8.4-10.2); Carbon Dioxide 25 mmol/L (22-29); Chloride 110 mmol/L (96-108); Cholesterol 117 mg/dL (<200); Estimated Glomerular Filt Rate > 60; Glucose Fasting 113 mg/dL (60-99); HDL Cholesterol 41 mg/dL (>40); Iron 75 mcg/dL (45-160); LDL Cholesterol Calculated 43 mg/dL (<100); Percent Iron Saturation 27 % (15-50); Potassium 3.6 mmol/L (3.3-5.1); Sodium 142 mmol/L (135-145); Total Iron Binding Capacity 277 mcg/dL (228-428); Total Protein 7.3 g/dL (6.5-8.0); Triglycerides 165 mg/dL (<150); Unsaturated Iron Binding 202 ug/dL
[2024-05-29 13:10] LABS: Vitamin D 25-OH Total 31.7 ng/mL (>30)
[2024-05-29 13:31] LABS: Alkaline Phosphatase 64 U/L (39-117)
== END 2024-05-29 10:29 | disposition home or self-care (01) ==
LOC: HO.LAB 10:28
PROVIDERS: PCP Internal Medicine; Visit Provider Internal Medicine
DX: E11.9 Type 2 diabetes mellitus without complications (principal); R40.0 Somnolence; K64.9 Unspecified hemorrhoids; I10 Essential (primary) hypertension; E78.00 Pure hypercholesterolemia, unspecified; N52.9 Male erectile dysfunction, unspecified; D64.9 Anemia, unspecified; E55.9 Vitamin D deficiency, unspecified; Z85.038 Personal history of other malignant neoplasm of large intestine
CPT/HCPCS: 36415; 80053; 80061; 82306; 83036; 83540; 85025; 96127; 99212

== ENCOUNTER 2024-05-29 10:28 | Outpatient (AMB) | payer OTHER, SELFPAY ==
[2024-05-29 10:33] VITALS: BP 118/80; PULSE 76; O2SAT 98; BMI 32.3
--- NOTE | 2024-05-29 10:33 | MHC.PC.OV ---
Vital Signs 05/29/24 10:33 Height 6 ft Weight 238 lb 2 oz BMI 32.3 BP 118/80 Blood Pressure Location Lt brachial Position Sitting Pulse 76 Pulse Source Pulse Oximeter Pulse Oximetry (%) 98 Oxygen Delivery Method Room Air Intake Visit Reasons: dm History Teacher Required: No Accompanied by: Spouse Allergies No Known Allergies Allergy (Verified 05/29/24 10:47) Medication List - Last Reconciled 05/29/24 by Amy Davila MD aspirin 81 mg PO DAILY 90 days atorvastatin 20 mg PO DAILY blood pressure test kit-large As directed blood pressure test kit-medium As directed blood sugar diagnostic (FreeStyle Lite Strips) Use 1 test strip once a day blood-glucose meter (FreeStyle Lite Meter kit) As directed carvedilol (Coreg) 6.25 mg PO BID 90 days cyclobenzaprine 10 mg PO Q8H hydralazine 100 mg PO Q8H 90 days hydrochlorothiazide 25 mg PO QAM ibuprofen 600 mg PO Q6H PRN lancets (FreeStyle Lancets) Use 1 lancet once a day losartan 100 mg PO DAILY 90 days metformin 500 mg PO BID 90 days miscellaneous medical supply 1 ea miscellaneous ONCE [id number]-minerals (Maximum Daily Multivitamin) 1 tab PO DAILY omega-3 fatty acids 1,000 mg PO DAILY tadalafil (Cialis) 20 mg PO DAILY PRN 90 days tramadol 50 mg PO Q6H PRN 90 days Tobacco use date assessed: 05/29/24 Dental Screening Dental Screen Date: 05/29/24 Did you have a dental visit in the last 12 months?: Yes Did you have a dental problem in the last 6 months where you did not have access to dental care?: No Was dental information given to patient?: Patient has dentist HPI HPI Comments History of Present Illness Details The patient is a 63-year-old male presenting with concerns about prescription medication refills, excessive bleeding from hemorrhoids, and suspected sleep apnea. There have been recent discrepancies with his sildenafil prescription refills, leading to complications in managing erectile dysfunction. He reports rectal bleeding linked to hemorrhoids. The patient has a history of colon cancer, necessitating regular colonoscopies, though he recently missed one due to notification issues. He also reports symptoms suggestive of sleep apnea, including episodes of falling asleep during the day and pauses in breathing noticed during rest. He severely dozed off while watching TV, sitting and reading, lying down in the afternoon and after lunch with an [place] score Scale of 12 and sleep study will be order.The patient is awaiting a sleep study to confirm the diagnosis. His comorbidities include hypertension and type 2 diabetes, treated with a comprehensive medication regimen. A1c within goal. Blood pressure stable. Lipid panel will be order and his LDL goal should be less than 70. Accompanied by today. [facility] Medical History Rash Mass of skin of back Low TSH level GERD (gastroesophageal reflux disease) Ascending aorta dilatation Lumbar degenerative disc disease Pure hypercholesterolemia Erectile dysfunction Essential hypertension Surgical History History of colon resection History of colonoscopy History of colon cancer History of back surgery Family History Father Myocardial infarction Mother Hypertension COPD (chronic obstructive pulmonary disease) Daughter Hypertension Heart problem Maternal Grandmother CAD (coronary artery disease) Stroke Paternal Grandfather Myocardial infarction Brother In good health Brother In good health Sister In good health Sister In good health Sister In good health Daughter In good health Daughter In good health Daughter In good health Social History Household Members: None Housing: Apartment Are you a primary animal caregiver to a significant other at home: No Do you presently have visiting nurse or other home services: No Alcohol intake: never Patient Tobacco Use Status: Former Tobacco user Tobacco use type: Cigarette Years Smoked: 40 +/- e-Cigarette/Vaping Use: Never Used Second Hand Smoke Exposure: No service: No Current occupational status: disabled Cognitive needs: No Hearing needs: No Vision needs: Yes Questionnaire PHQ-9 Over the last 2 weeks, how often have you been bothered by any of the following problems? 1. Little interest or pleasure in doing things: not at all 2. Feeling down, depressed, or hopeless: not at all 3. Trouble falling or staying asleep, or sleeping too much: not at all 4. Feeling tired or having little energy: not at all 5. Poor appetite or overeating: not at all 6. Feeling bad about yourself - or that you are a failure or have let yourself or your family down: not at all 7. Trouble concentrating on things, such as reading the newspaper or watching television: not at all 8. Moving or speaking so slowly that other people could have noticed. Or the opposite - being so fidgety or restless that you have been moving around a lot more than usual: not at all 9. Thoughts that you would be better off or of hurting yourself in some way: not at all Total score: 0 Depression Screening Interpretation: Negative Depression Screening Done: Yes 07812 - PHQ-9 Billing: Yes Source: Developed by Drs. Handy Allen, Mesha Mcgrath, Willian Pelletier and colleagues, with an educational lacho from [employer]. Thrive Questionnaire Date Thrive assessed: 05/29/24 I am a: Patient What is your living situation today?: I have a steady place to live Within the past 12 months, did the food you bought not last and you didn't have the money to get more?: Never true Within the past 12 months, did you worry whether your food would run out before you got money to buy more?: Never true Do you have trouble paying for medicines?: No Do you have trouble getting transportation to medical appointments?: No Do you have trouble paying your heating and electricity bill?: No Do you have trouble taking care of your child, family member or friend?: No Do you have trouble with day-to-day activities such as bathing, preparing meals, shopping, managing finances, etc.?: No Are you currently unemployed and looking for a job?: I choose not to answer this question Are you interested in more education?: No Please select the resources that you would like help with: None Currently or been in a relationship where the following occur: No concerns reported THRIVE Score: 0 AUDIT C Alcohol Use Questionnaire (AUDIT-C) 1. How often do you have a drink containing alcohol?: Never Total Score: 0 Score Reviewed/Action Taken: No JOSETTE-7 AMB Questionnaire JOSETTE-7 Date JOSETTE - 7 assessed: 05/29/24 Feeling nervous, anxious, or on edge: 0 = Not at all Not being able to stop or control worryin = Not at all Worrying too much about different things: 0 = Not at all Trouble relaxin = Not at all Being so restless that it is hard to sit still: 0 = Not at all Becoming easily annoyed or irritable: 0 = Not at all Feeling afraid as if something awful might happen: 0 = Not at all Total JOSETTE-7 score (0-4 normal; 5-9 mild; 10-14 moderate; 15-21 severe): 0 Source: Developed by Drs. Handy Allen, Mesha Mcgrath, Willian Pelletier and colleagues, with an educational lacho from [employer]. JOSETTE-7 Assessment Billing JOSETTE-7 Assessment Tool: JOSETTE-7 Assessment 36245 Review of Systems Const All systems reviewed & are unremarkable except as noted in HPI and below Reports daytime sleepiness Card Denies chest pain at rest, Denies chest pain with activity, Denies edema, Denies irregular heart rhythm, Denies claudication, Denies dyspnea, Denies dyspnea on exertion, Denies orthopnea, Denies paroxysmal nocturnal dyspnea and Denies slow heart rate Resp Denies cough, Denies dyspnea and Denies dyspnea on exertion GI Denies abdominal pain, Reports hematochezia, Denies change in bowel habits, Denies excessive flatus, Denies nausea and Denies vomiting Denies urinary hesitancy, Denies urinary incontinence and Denies urinary urgency Physical exam (Primary Care) Vital Signs: Last Vital Signs Pulse 76 05/29/24 10:33 BP 118/80 05/29/24 10:33 Pulse Ox 98 05/29/24 10:33 Oxygen Delivery Method Room Air 05/29/24 10:33 BMI result Body Mass Index 32.3 BMI Assessment/Plan discussion: High BMI High, discussed plan: lifestyle, weight reduction, dietary and physical activity Tobacco/Smoking Status: Tobacco use Status Tobacco use date assessed 05/29/24 05/29/24 10:38 Patient Tobacco Use Status Former Tobacco user 05/29/24 10:38 Tobacco use type Cigarette 05/29/24 10:38 e-Cigarette/Vaping Use Never Used 05/29/24 10:38 PHQ-9: PHQ-9 Score PHQ-9: Total score 0 05/29/24 10:54 Depression Screening Interpretation: Negative Thrive Assessment: Date of Thrive Assessment Date Thrive assessed 02/26/25 02/26/25 10:38 Currently or been in a relationship where the following occur: No concerns reported Resp Effort & Inspection: normal respiratory effort Auscultation: clear to auscultation bilaterally Cardio Jugular venous distension: no JVD Rate: regular rate Rhythm: regular rhythm Heart sounds: S1 normal heart sound present and S2 normal heart sound present Extrem General: Yes full ROM Results AMB Hemoglobin A1c AMB Hemoglobin A1c 5.7 % Last Edit by JORDON Rosen on 05/29/24 10:54 Results Reviewed Results Reviewed: Laboratory Last Values Hgb A1c (Clinic) 5.7 % (4.0-6.0) 05/29/24 10:53 Coding Level of Care Code Est Pt Level 4 (23813) Complex EM visit Add On G2211 Diagnoses Type 2 diabetes mellitus without complication, without long-term current use of insulin E11.9 Diabetes mellitus complication status: without complication Diabetes mellitus terminal computer operator insulin use: without terminal computer operator use Diabetes mellitus type: type 2 Daytime somnolence R40.0 Hemorrhoids K64.9 Essential (primary) hypertension I10 Malignant neoplasm of colon, unspecified part of colon C18.9 Colon location: unspecified part of colon Pure hypercholesterolemia E78.00 Erectile dysfunction N52.9 Additional Codes JOSETTE-7 Assessment Billing - JOSETTE-7 Assessment Tool: JOSETTE-7 Assessment 41693 ([id number]) PHQ-9 - 38780 - PHQ-9 Billing: Yes ([id number]) Time Spent (min) 24 Assessment & Plan Assessment & Plan (1) Diabetes mellitus: Code(s): E11.9 - Type 2 diabetes mellitus without complications Category: Medical Qualifiers: Diabetes mellitus complication status: without complication Diabetes mellitus terminal computer operator insulin use: without terminal computer operator use Diabetes mellitus type: type 2 Qualified Code(s): E11.9 - Type 2 diabetes mellitus without complications (2) Daytime somnolence: Code(s): R40.0 - Somnolence Category: Medical (3) Hemorrhoids: Code(s): K64.9 - Unspecified hemorrhoids Category: Medical (4) Essential (primary) hypertension: Code(s): I10 - Essential (primary) hypertension Category: Medical (5) Colon cancer: Comment: Diagnosed in 2014 and treated with resection in May 2015 Code(s): C18.9 - Malignant neoplasm of colon, unspecified Category: Medical Qualifiers: Colon location: unspecified part of colon Qualified Code(s): C18.9 - Malignant neoplasm of colon, unspecified (6) Pure hypercholesterolemia: Code(s): E78.00 - Pure hypercholesterolemia, unspecified Category: Medical (7) Erectile dysfunction: Code(s): N52.9 - Male erectile dysfunction, unspecified Category: Medical Plan I confirmed the correct prescription protocol for sildenafil and discussed the need to resolve any pharmacy discrepancies. For the ongoing hemorrhoidal bleeding, we planned an upcoming colonoscopy to rule out complications, given his colon cancer history. I arranged a complete blood count to assess any possible anemia and provided instructions on managing episodes conservatively. For sleep concerns, a sleep study was recommended to identify any obstructive sleep apnea. The patient's diabetes and hypertension management remain stable, and dietary adjustments were advised to complement pharmacological treatments. Patient was informed and verbally consented to the use of an ambient scribe for clinic note documentation during this visit. I discussed with the patient the importance of maintaining the correct sildenafil prescription routine and advised on strategies to address pharmacy errors. We reviewed options for managing hemorrhoidal symptoms conservatively, while acknowledging the need for further investigation during the upcoming colonoscopy. I explained the significance of evaluating suspected sleep apnea through a sleep study, detailing symptoms warranting this diagnostic approach. I emphasized the need for consistent follow-up care to assess the treatment's effectiveness and encouraged the patient to continue efforts in managing type 2 diabetes and hypertension with both lifestyle modifications and pharmacotherapy. Orders: Orders Complete Blood Count Auto Diff Today D64.9 - Anemia, unspecified Lipid Panel Today E78.5 - Hyperlipidemia, unspecified Microalbumin, Random (w Creat) Today R80.9 - Proteinuria, unspecified Comprehensive [place]. Panel Fast Today E11.9 - Type 2 diabetes mellitus without complications AMB Hemoglobin A1c Today Z13.9 - Encounter for screening, unspecified IRON PROFILE Today D64.9 - Anemia, unspecified RT home sleep study Today R40.0 - Somnolence Referrals General Surgery Referral K64.9 - Unspecified hemorrhoids Patient Instructions: - Ensure the pharmacy dispenses sildenafil correctly as prescribed. - Attend the scheduled colonoscopy on July 20. - Monitor hemorrhoidal symptoms and report any significant changes or increased bleeding. - Undergo recommended blood tests for hemoglobin levels. - Prepare for and attend the sleep study as scheduled. - Continue efforts with dietary modifications to aid in diabetes and hypertension management. - Follow up for continued assessment and management of chronic conditions.
--- OUTSIDE RECORDS SUMMARY | 2024-05-29 12:52 | XMS_ITS ---
Author Organization [facility] Address [address] [place] [address] Care Team Providers Care Dental Insurance Biller Name Role Phone Amy Rodriguez Primary Care Provider Unavailab Handy Lowe Unavailable [phone] REASON FOR VISIT malignant neoplasm sigmoid, screening,hx polyps Encounters Encounter Location Date Provider Diagnosis [facility] Out[facility] [address] [place] [phone] 04/05/2024 Handy Mendez PLAN OF TREATMENT Next Appt Details Provider Name:Handy Mendez , 07/05/2024 10:30:00 AM, [address] [place] [address], [phone],
--- OUTSIDE RECORDS SUMMARY | 2024-05-29 12:53 | XMS_ITS ---
Author Organization [facility] Address [address] [place] [id number] Care Team Providers Care Data Entry Clerk Name Role Phone Amy Rodriguez Primary Care Provider Unavailab Handy Lowe [facility] [phone] REASON FOR VISIT bowel prep MEDICATIONS Medication SIG (Take, Route, Frequency, Duration) Notes Start Date End Date Status Dulcolax (colon prep) 5 MG take at 3:00 p.m and 7:00p.m. Orally two tablets twice a day for one day for 1 day 12/09/2023 Active MiraLax (colon prep) 17 GM/SCOOP 1 238Gm bottle mixed with Gatorade or Crystal Light Orally begin at 5:00 p.m. the day before the procedure for 1 day 12/09/2023 Active Encounters Encounter Location Date Provider Diagnosis [facility] [address] [address] 12/05/2023 Handy Mendez PLAN OF TREATMENT Medication Medication Name Sig Start Date Stop Date Notes Dulcolax (colon prep) 5 MG take at 3:00 p.m and 7:00p.m. Orally two tablets twice a day for one day for 1 day 12/09/2023 MiraLax (colon prep) 17 GM/SCOOP 1 238Gm bottle mixed with Gatorade or Crystal Light Orally begin at 5:00 p.m. the day before the procedure for 1 day 12/09/2023 Next Appt Details Provider Name:Handy Mendez , 07/05/2024 10:30:00 AM, [address] , [place], [place], [phone],
--- OUTSIDE RECORDS SUMMARY | 2024-05-29 12:53 | XMS_ITS ---
Author Organization [facility] Address [address] [place] [address] Care Team Providers Care Job Training Supervisor Name Role Phone Amy Rodriguez Primary Care Provider Unavailab Handy Lowe Unavailable [phone] REASON FOR VISIT cancel procedure Encounters Encounter Location Date Provider Diagnosis [facility] [address] [place] [phone] 04/04/2024 Handy Mendez PLAN OF TREATMENT Next Appt Details Provider Name:Handy Mendez , 07/05/2024 10:30:00 AM, [address] [facility] , [place], [place], [phone],
--- OUTSIDE RECORDS SUMMARY | 2024-05-29 12:53 | XMS_ITS | Patient Health Record ---
Author Organization [facility] Address [address] [place] [address] Care Team Providers Care Front Desk Administrator Name Role Phone Amy Rodriguez Primary Care Provider Handy Duncan Unavailable [phone] ALLERGIES No Known Allergies REASON FOR REFERRAL No Information MEDICATIONS Medication SIG (Take, Route, Frequency, Duration) Notes Start Date End Date Status metFORMIN HCl 500 MG TAKE 1 TABLET ORALL Y 2 TIMES A DAY FOR 90 DAYS Oral twice a day Active Carvedilol 6.25 MG Oral for 90 Active Dulcolax (colon prep) 5 MG take at 3:00 p.m and 7:00p.m. Orally two tablets twice a day for one day for 1 day 12/09/2023 Active Cyclobenzaprine HCl 10 MG TAKE 1 TABLET ORALLY BEDTIME NEEDED FOR FOR MUSCLE SPASM FOR 90 DAYS Oral for 90 Active hydrALAZINE HCl 100 MG Oral for 90 Active hydroCHLOROthiazide 25 MG TAKE 1 TABLET BY MOUTH EVERY MORNING Oral for 90 Active Aspirin Low Dose 81 MG TAKE 1 TABLET BY MOUTH EVERY DAY Oral for 90 Active Losartan Potassium 100 MG Oral for 90 Active MiraLax (colon prep) 17 GM/SCOOP 1 238Gm bottle mixed with Gatorade or Crystal Light Orally begin at 5:00 p.m. the day before the procedure for 1 day 12/09/2023 Active Atorvastatin Calcium 20 MG Oral for 90 Active traMADol HCl 50 MG 1 tablet as needed Orally every 6 hrs Active [place] [facility] Activ e SOCIAL HISTORY Tobacco Use: Social History Observation Description Date Details (start date - stop date) Former Smoker NA - NA Sex Assigned At : Social History Observation Description Sex Assigned At Unknown Tobacco Use/Smoking Question Answer Notes Patient is a former smoker How long has it been since you last smoked? 1-5 years PROBLEMS Problem Type ICD Code Onset Dates Problem Status W/U Status Risk SNOMED Code Notes Problem Encounter for screening for malignant neoplasm of colon (Z12.11) Active confirmed 426966413 Problem History of adenomatous polyp of colon (Z86.010) Active confirmed 718878905 Problem Malignant neoplasm of sigmoid colon (C18.7) Active confirmed 040606498 Problem Encounter for screening for malignant neoplasm of rectum (Z12.12) Active confirmed Screening fo r malignant neoplasm of rectum (043053445) Problem Personal history of other malignant neoplasm of large intestine (Z85.038) Active confirmed History of malignant neoplasm of colon (870640638) Problem Intestinal bypass and anastomosis status (Z98.0) Active confirmed History of gastrointestinal tract bypass (342243809) Problem Abnormal CT of liver (R93.2) Active confirmed 433042923 Problem Preprocedural examination (Z01.818) Active confirmed 184065759886190 Problem Elevated liver enzymes (R74.8) Active confirmed 317830940 Problem History of colon polyps (Z86.010) Active confirmed 474321548 Problem Fatty liver (K76.0) Active confirmed 797974747 Problem History of colon cancer (Z85.038) Active confirmed 150747536 Problem Cancer of sigmoid colon (C18.7) Active confirmed 313152999 Problem Hepatic hemangioma (D18.03) Active confirmed 83166850 Problem Diverticulosis of colon (K57.30) Active confirmed Diverticulosi s of colon (129976095) VITAL SIGNS Blood pressure diastolic 00 mm Hg 12/05/2023 Height 71.75 in 12/05/2023 Blood pressure systolic 00 mm Hg 12/05/2023 Weight 242 lbs 12/05/2023 BMI 33.05 kg/m2 12/05/2023 Encounters Encounter Location Date Provider Diagnosis [facility] [address] [place], [place] [phone] 04/05/2024 Handy Mendez [facility] [address] [place] [address] 12/05/2023 Handy Mendez Malignant neoplasm of sigmoid colon C18.7 ; Encounter for screening for malignant neoplasm of colon Z12.11 and History of colon polyps Z86.010 [facility] [address] [place] [address] 12/05/2023 Handy Mendez [facility] [address] [place] [address] 04/04/2024 Handy Mendez ASSESSMENTS Encounter Date Diagnosis Assessment Notes Treatment Notes Treatment Clinical Notes 12/05/2023 Encounter for screening for malignant neoplasm of colon (ICD-10 - Z12.11) Do not take aspirin for two days before the colonoscopy Do not take the Metformin the night before or on the morning of the colonoscopy Do not use the Hydrochlorothiazide the day before or on the day of the colonoscopy 12/05/2023 Malignant neoplasm of sigmoid colon (ICD-10 - C18.7) 12/05/2023 History of colon polyps (ICD-10 - Z86.010) PLAN OF TREATMENT Pending Test Test Name Order Date MRI ABD W&WO CONTRAST 01/23/2015 Future Test Test Name Order Date COLONOSCOPY 10/30/2014 COLONOSCOPY 03/16/2016 COLONOSCOPY 09/28/2017 COLONOSCOPY 12/08/2020 COLONOSCOPY 12/05/2023 Next Appt Details Provider Name:Handy Mendez , 07/05/2024 10:30:00 AM, [address] [place] [address] , [place], [place], [phone], Insurance Providers Payer Name Payer Address Payer Phone Subscriber Number Group Number Insured Name Patient Relationship to Insured Coverage Start Date Coverage End Date [facility] [address] Attn Claims [place] [id number] MARITZA GRANADOS Self - patient is the insured MEDICAL (GENERAL) HISTORY Medical History History ICD Code Hypertension Denies SC,DM,CVA,Lung disease,renal dise ase Screening colonoscopy on 10/02--3 polyps greater than 1 cm in size in the left colon--2 of these were completely removed and were tubular adenomas; the third polyp at 30 cm was on a broad base and somewhat ulcerated--this was only partially removed and shown to be a tubular adenoma with high-grade dysplasia--the area was marked with submucosal ink Sigmoid colon cancer in the form of a malignant polyp -- F/U on 01/15/15 revealed the residual polypoid lesion at 25 cm which was removed--some residual polyp tissue in that area was cauterized--- this was in the area of the previous submucosal ink markings--- the pathology describes a moderately differentiated adenocarcinoma arising in this tubular adenoma, with tumor invading the submucosa and the margin from the cauterized base of the polyp was only 0.6 mm--there was no lymph-vascular invasion. He had a normal CEA level and a CAT scan of the abdomen describes some very nonspecific liver lesions, most likely cysts--however, the radiologist recommended a MRI for further assessment--- the CAT scan report also describes some inflammatory changes in the region of the left colon of what I felt was his probable recent polypectomy--he underwent sigmoid resection as below Colonoscopy 10/2016--small tubular adenom as and internal hemorrhoids MRI of abdomen in 09/2015--hemangiomas of liver--- stable on imaging in 2016 Elevated LFT's c/w fatty [place] er--minimal--neg. Hepatitis B and C studies, and normal Iron studies---imaging studies as above Negative colonoscopy in 10/2017 TIA in 2019 NIDDM Screening colonoscopy in Jan with a small tubular adenoma removed Surgical History Surgery Date(Month/Year) Back surgery x 2--1999, 2013 Hemorrhoid surgery Surgery for colon cancer(mal ignant colon polyp) with Dr Cook on 05/08/2015--sigmoid resection; revealed no sign of any residual adenoma nor carcinoma--- one lymph node was negative for cancer; sees Dr. Bess
== END 2024-05-29 11:04 | disposition home or self-care (01) ==
PROVIDERS: PCP Internal Medicine; Visit Provider Internal Medicine
DX: E11.9 Type 2 diabetes mellitus without complications (principal); C18.9 Malignant neoplasm of colon, unspecified; K64.9 Unspecified hemorrhoids; I10 Essential (primary) hypertension; E78.00 Pure hypercholesterolemia, unspecified; N52.9 Male erectile dysfunction, unspecified

== ENCOUNTER 2024-05-31 11:57 | Outpatient (REF) | payer OTHER, SELFPAY ==
[2024-05-31 12:50] LABS: Microalbum/Creatinine Ratio Ur 5.6 ug/mg cr (<30)
--- OUTSIDE RECORDS SUMMARY | 2024-05-31 14:15 | XMS_ITS ---
Author Organization [facility] Address [address] [place] [address] Care Team Providers Care Issue Clerk Name Role Phone Amy Rodriguez Primary Care Provider Unavailab Handy Lowe [facility] [phone] REASON FOR VISIT bowel prep MEDICATIONS Medication [...] Active Encounters Encounter Location Date Provider Diagnosis [facility] [address] [address] 12/05/2023 Handy Mendez PLAN OF TREATMENT Medication [...] 07/05/2024 10:30:00 AM, [address] , [place], [place], [phone],
--- OUTSIDE RECORDS SUMMARY | 2024-05-31 14:15 | XMS_ITS ---
Author Organization [facility] Address [address] [place] [address] Care Team Providers Care Tripper Name Role Phone Amy Rodriguez Primary Care Provider Unavailab Handy Lowe Unavailable [phone] REASON FOR VISIT malignant neoplasm sigmoid, screening,hx polyps Encounters Encounter Location Date Provider Diagnosis [facility] [place] [address] [place] [phone] 04/05/2024 Handy Mendez PLAN OF TREATMENT Next Appt Details Provider Name:Handy Mendez , 07/05/2024 10:30:00 AM, [address] [place] [address], [phone],
--- OUTSIDE RECORDS SUMMARY | 2024-05-31 14:15 | XMS_ITS ---
Author Organization [facility] Address [address] [place] [address] Care Team Providers Care Auto Painter Name Role Phone Amy Rodriguez Primary Care Provider Unavailab Handy Lowe Unavailable [phone] REASON FOR VISIT cancel procedure Encounters Encounter Location Date Provider Diagnosis [facility] [address] [place] [address] 04/04/2024 Handy Mendez PLAN OF TREATMENT Next Appt Details Provider Name:Handy Mendez , 07/05/2024 10:30:00 AM, [address] [facility] , [place], [place], [phone],
--- OUTSIDE RECORDS SUMMARY | 2024-05-31 14:16 | XMS_ITS | Patient Health Record ---
Author Organization [facility] Address [address] [place] [address] Care Team Providers Care Yacht Rigger Name Role Phone Amy Rodriguez Primary Care Provider Handy Duncan Unavailable [phone] ALLERGIES No Known Allergies REASON FOR REFERRAL [...] malignant neoplasm of colon (Z12.11) Active confirmed 763881344 Problem History of adenomatous polyp of colon (Z86.010) Active confirmed 877995142 Problem Malignant neoplasm of sigmoid colon (C18.7) Active confirmed 669879395 Problem Encounter for screening for malignant neoplasm of rectum (Z12.12) Active confirmed Screening fo r malignant neoplasm of rectum (069078287) Problem Personal history of other malignant neoplasm of large intestine (Z85.038) Active confirmed History of malignant neoplasm of colon (345416277) Problem Intestinal bypass and anastomosis status (Z98.0) Active confirmed History of gastrointestinal tract bypass (190706405) Problem Abnormal CT of liver (R93.2) Active confirmed 676293082 Problem Preprocedural examination (Z01.818) Active confirmed 862788014569534 Problem Elevated liver enzymes (R74.8) Active confirmed 055566044 Problem History of colon polyps (Z86.010) Active confirmed 515397933 Problem Fatty liver (K76.0) Active confirmed 592062409 Problem History of colon cancer (Z85.038) Active confirmed 932234586 Problem Cancer of sigmoid colon (C18.7) Active confirmed 200122388 Problem Hepatic hemangioma (D18.03) Active confirmed 20102832 Problem Diverticulosis of colon (K57.30) Active confirmed Diverticulosi s of colon (215567914) VITAL SIGNS Blood pressure diastolic 00 mm Hg 12/05/2023 Height 71.75 in 12/05/2023 Blood pressure systolic 00 mm Hg 12/05/2023 Weight 242 lbs 12/05/2023 BMI 33.05 kg/m2 12/05/2023 Encounters Encounter Location Date Provider Diagnosis [facility] [place] [address] [place], [place] [phone] 04/05/2024 Handy Mendez [facility] [address] [place] [address] 12/05/2023 Handy Mendez Malignant neoplasm of sigmoid colon C18.7 ; Encounter for screening for malignant neoplasm of colon Z12.11 and History of colon polyps Z86.010 [facility] [address] [place] [address] 12/05/2023 Handy Mendez [facility] [address] [place] [address] 04/04/2024 Handy Mendez ASSESSMENTS Encounter Date Diagnosis [...] Provider Name:Handy Mendez , 07/05/2024 10:30:00 AM, [address] [place] [address] , [place], [place], [phone], Insurance Providers Payer Name Payer Address Payer Phone Subscriber Number Group Number Insured Name Patient Relationship to Insured Coverage Start Date Coverage End Date [facility] [address] Attn Claims [place] [id number] MARITZA GRANADOS Self - patient is the insured MEDICAL (GENERAL) HISTORY Medical History History ICD Code Hypertension Denies HI,DM,CVA,Lung disease,renal dise ase Screening colonoscopy on 10/02--3 [...]
== END 2024-05-31 11:58 | disposition home or self-care (01) ==
LOC: HO.LNP 11:57
PROVIDERS: Visit Provider Internal Medicine
DX: R80.9 Proteinuria, unspecified (principal)
CPT/HCPCS: 82043; 82570

== ENCOUNTER 2024-06-13 09:53 | Outpatient (AMB) | payer OTHER, SELFPAY ==
--- NOTE | 2024-06-13 09:56 | A.OFFVIS_ITS ---
Vital Signs 06/13/24 10:03 Height 6 ft Weight 239 lb BMI 32.4 Intake Visit Reasons: hemorrhoids Intake Note: This patient presents for hemorrhoids assessment. Pt c/o; rectal bleeding, reports last colonoscopy was three years ago, he is booked for his colonoscopy 07/20/2024, Hx of colon cancer Consumer Lender Required: No Accompanied by: Spouse Allergies No Known Allergies Allergy (Verified 06/13/24 10:05) Medication List - Last Reconciled 06/13/24 by Elías Ruano MD aspirin 81 mg PO DAILY 90 days atorvastatin 20 mg PO DAILY blood pressure test kit-large As directed blood pressure test kit-medium As directed blood sugar diagnostic (FreeStyle Lite Strips) Use 1 test strip once a day blood-glucose meter (FreeStyle Lite Meter kit) As directed carvedilol (Coreg) 6.25 mg PO BID 90 days cyclobenzaprine 10 mg PO Q8H hydralazine 100 mg PO Q8H 90 days hydrochlorothiazide 25 mg PO QAM ibuprofen 600 mg PO Q6H PRN lancets (FreeStyle Lancets) Use 1 lancet once a day losartan 100 mg PO DAILY 90 days metformin 500 mg PO BID 90 days miscellaneous medical supply 1 ea miscellaneous ONCE qykktnqmkmud-Dh-tsij-minerals (Maximum Daily Multivitamin) 1 tab PO DAILY omega-3 fatty acids 1,000 mg PO DAILY tadalafil (Cialis) 20 mg PO DAILY PRN 90 days tramadol 50 mg PO Q6H PRN 90 days HPI HPI hemorrhoids: Details: 64-year-old male referred for hemorrhoid issues. He says that he had hemorrhoid surgery about 10 years ago in [place]. However, he says he continues to have this problem of prolapse and bleeding. He says that often times with bowel movements, he would notice this hemorrhoids to come out. He does not manually reduce this. He also would have periodic passage of bright blood per rectum which he describes as ?a lot? on and off He denies obvious pain He says he does not really have a problem with constipation. He has not on any anticoagulation. [facility] Medical History (Updated 06/13/24 @ 10:37 by Elías Ruano MD) Bleeding hemorrhoids Rash Mass of skin of back Low TSH level GERD (gastroesophageal reflux disease) Ascending aorta dilatation Lumbar degenerative disc disease Pure hypercholesterolemia Erectile dysfunction Essential hypertension Surgical History History of colon resection History of colonoscopy History of colon cancer History of back surgery Family History Father Myocardial infarction Mother Hypertension COPD (chronic obstructive pulmonary disease) Daughter Hypertension Heart problem Maternal Grandmother CAD (coronary artery disease) Stroke Paternal Grandfather Myocardial infarction Brother In good health Brother In good health Sister In good health Sister In good health Sister In good health Daughter In good health Daughter In good health Daughter In good health Social History Household Members: None Housing: Apartment Are you a primary rn complex care to a significant other at home: No Do you presently have visiting nurse or other home services: No Alcohol intake: never Patient Tobacco Use Status: Former Tobacco user Tobacco use type: Cigarette Years Smoked: 40 +/- e-Cigarette/Vaping Use: Never Used Second Hand Smoke Exposure: No service: No Current occupational status: disabled Cognitive needs: No Hearing needs: No Vision needs: Yes Review of Systems Const Denies chills and Denies fever(s) Card Denies chest pain, Denies dyspnea and Denies dyspnea on exertion Resp Denies cough, Denies dyspnea and Denies dyspnea on exertion GI Reports hematochezia and Denies change in bowel habits Denies hematuria and Denies difficulty urinating Musc Denies back pain and Denies limited range of motion Neuro Denies focal weakness and Denies convulsions Psych Denies depression and Denies mood swings Physical Exam Vital Signs: BMI result Body Mass Index 32.4 Const General: comfortable and no acute distress Orientation/consciousness: patient oriented x3 Neck Neck: Yes no lymphadenopathy Resp Auscultation: clear to auscultation bilaterally Cardio Rhythm: regular rhythm GI Other: Rectal exam shows a moderate-sized hemorrhoid on the left with note of some prolapse of internal component Palpation (GI): Soft to palpation, nontender and no guarding Neuro General: patient oriented x3 Office Procedures Anoscopy He was in ronak-knife position. The anoscope was gently inserted. A full examination of the anal canal was done. He did have this mixed internal and external hemorrhoidal column which appeared to be bulky on the left posterior. Also appears to prolapse easily. There were no other lesions. There was no fissure or ulceration there was no bleeding. There was no induration on digital exam 24721-Psgoecnx Quality Reporting (2019) Adult ([facility] 138/05/25/68) Smoking risk assessment performed?: Yes Patient Tobacco Use Status: Former Tobacco user Assessment & Plan Assessment & Plan (1) Bleeding hemorrhoids: Code(s): K64.9 - Unspecified hemorrhoids Category: Medical Plan: He has this internal and external hemorrhoidal column on the left posterior and he describes frequent bleeding and prolapse. I therefore had a long discussion with him about the technique of hemorrhoidectomy. I explained the risks including but not limited to bleeding, infections, postop pain and poor healing. I reviewed with him what to expect postoperatively. He did have an experience with hemorrhoidectomy about 10 years ago and says that he is hesitant to proceed with again for now. I did advise him to take some fiber supplements with Metamucil. He says he will come back to me if he decides to proceed with hemorrhoidectomy. Coding Level of Care Code New Pt Level 3 (08371) Diagnoses Bleeding hemorrhoids K64.9 CPT Codes Details - CPT: 82126-Dejoexnr ([id number])
[2024-06-13 10:03] VITALS: BMI 32.4
--- OUTSIDE RECORDS SUMMARY | 2024-06-13 12:05 | XMS_ITS ---
Author Organization [facility] Address [address] [place] [address] Care Team Providers Care Body Die Maker Name Role Phone Amy Rodriguez Primary Care Provider Unavailab Handy Lowe [phone] REASON FOR VISIT cancel procedure Encounters Encounter Location Date Provider Diagnosis [facility] [address] [place] [address] 04/04/2024 Handy Mendez Plan Of Treatment Next Appt Details Provider Name:Handy Mendez , 07/05/2024 10:30:00 AM, [address] [place] [address] , [place], [place], [phone], Progress Notes * MARITZA GRANADOS MDOB: (63 yo M)Acc No.[id number]:04/04/2024 Patient:?MARITZA GRANADOS :1960???Age:63 Y???Sex:Male Address: [address] [place], [address] * true * Date:? Generated for Francisi don/Gay/eTransmitting on:?06/13/2024 12:05 PM EDT
--- OUTSIDE RECORDS SUMMARY | 2024-06-13 12:05 | XMS_ITS | Patient Health Record ---
Author Organization [facility] Address [address] [place] [address] Care Team Providers Care Signalman Name Role Phone Amy Rodriguez Primary Care Provider Handy Duncan Unavailable [phone] Allergies No Known Allergies Reason For Referral No Information Medications Medication SIG (Take, Route, Frequency, Duration) Notes [...] hrs Active [facility] Activ e Social History Tobacco Use: Social History Observation Description Date Details (start date - stop date) Former Smoker NA - NA Tobacco Use/Smoking Question Answer Notes Patient is a former smoker How long has it been since you last smoked? 1-5 years Section Notes: Smoker- 1/2 ppd; no alcohol Smoker- 1/2 ppd; no alcohol Smoker- 1/2 ppd; no alcohol Nonsmoker since 2014; no alc ohol Nonsmoker since 2014; no alc ohol Nonsmoker since 2014; no alc ohol Nonsmoker since 2014; no alc ohol Problems Problem Type SNOMED Code ICD Code Onset Dates Problem Status W/U Status Risk Notes Problem 228198215 Encounter for screening for malignant neoplasm of colon (Z12.11) Active confirmed Problem 348612912 History of adenomatous polyp of colon (Z86.010) Active confirmed Problem 668766777 Malignant neoplasm of sigmoid colon (C18.7) Active confirmed Problem Screening for malignant neoplasm of rectum (118921798) Encounter for screening for malignant neoplasm of rectum (Z12.12) Active confirmed Problem History of malignant neoplasm of colon (915877809) Personal history of other malignant neoplasm of large intestine (Z85.038) Active confirmed Problem History of gastrointestinal tract bypass (965884100) Intestinal bypass and anastomosis status (Z98.0) Active confirmed Problem 789269286 Abnormal CT of liver (R93.2) Active confirmed Problem 207094202279566 Preprocedural examination (Z01.818) Active confirmed Problem 848492796 Elevated liver enzymes (R74.8) Active confirmed Problem 039828266 History of colon polyps (Z86.010) Active confirmed Problem 049486704 Fatty liver (K76.0) Active confirmed Problem 709788614 History of colon cancer (Z85.038) Active confirmed Problem 145478793 Cancer of sigmoi d colon (C18.7) Active confirmed Problem 86551217 Hepatic hemangioma (D18.03) Active confirmed Problem Diverticulosis of colon (116123634) Diverticulosis of colon (K57.30) Active confirmed Vital Signs Blood pressure diastolic 00 mm Hg 12/05/2023 Height 71.75 in 12/05/2023 Blood pressure systolic 00 mm Hg 12/05/2023 Weight 242 lbs 12/05/2023 BMI 33.05 kg/m2 12/05/2023 Encounters Encounter Location Date Provider Diagnosis [facility] [address] [place] [address] 12/05/2023 Handy Mendez Malignant neoplasm of sigmoid colon C18.7 ; Encounter for screening for malignant neoplasm of colon Z12.11 and History of colon polyps Z86.010 [facility] [address] [place] [address] 12/05/2023 Handy Mendez [facility] [address] [place] [address] 04/04/2024 Handy Mendez Assessments Encounter Date Diagnosis (ICD Code) Assessment Notes Treatment Notes Treatment Clinical Notes Section Notes 12/05/2023 Encounter for screening for malignant neoplasm of colon (ICD-10 - Z12.11) Do not take aspirin for two days before the colonoscopy Do not take the Metformin the night before or on the morning of the colonoscopy Do not use the Hydrochlorothiazide the day before or on the day of the colonoscopy Overall, Maritza appears quite well. Given his previous history of colon cancer and tubular adenomas, with his last colonoscopy being over 3 years ago, I did recommend a followup colonoscopy for further screening purposes. We did review the rationale for that in regard to colon cancer prevention. Full consent is obtained for this, including risks of bleeding and perforation. The procedure will be done with monitored anesthesia care. He was given the below instructions regarding adjustment of his medications for the procedure. Maritza was comfortable with this plan. Thank you again for allowing me to participate in Maritza's care. I shall continue to keep you advised of his progress. 12/05/2023 Malignant neoplasm of sigmoid colon (ICD-10 - C18.7) Overall, Maritza appears quite well. Given his previous history of colon cancer and tubular adenomas, with his last colonoscopy being over 3 years ago, I did recommend a followup colonoscopy for further screening purposes. We did review the rationale for that in regard to colon cancer prevention. Full consent is obtained for this, including risks of bleeding and perforation. The procedure will be done with monitored anesthesia care. He was given the below instructions regarding adjustment of his medications for the procedure. Maritza was comfortable with this plan. Thank you again for allowing me to participate in Robertos care. I shall continue to keep you advised of his progress. 12/05/2023 History of colon polyps (ICD-10 - Z86.010) Overall, Martiza appears quite well. Given his previous history of colon cancer and tubular adenomas, with his last colonoscopy being over 3 years ago, I did recommend a followup colonoscopy for further screening purposes. We did review the rationale for that in regard to colon cancer prevention. Full consent is obtained for this, including risks of bleeding and perforation. The procedure will be done with monitored anesthesia care. He was given the below instructions regarding adjustment of his medications for the procedure. Maritza was comfortable with this plan. Thank you again for allowing me to participate in Maritza's care. I shall continue to keep you advised of his progress. Plan Of Treatment Pending Test Test Name Order Date MRI ABD W&WO CONTRAST 01/23/2015 Future Test Test Name Order Date COLONOSCOPY 10/30/2014 COLONOSCOPY 03/16/2016 COLONOSCOPY 09/28/2017 COLONOSCOPY 12/08/2020 COLONOSCOPY 12/05/2023 Next Appt Details Provider Name:Handy Mendez , 07/05/2024 10:30:00 AM, [address] [place] [address], [phone], Insurance Providers Payer Name Payer Address Payer Phone Subscriber Number Group Number Insured Name Patient Relationship to Insured Coverage Start Date Coverage End Date [facility] [address] [place] [id number] GRANADOSMARITZA Chua Self - patient is the insured Medical (General) History Medical History History ICD Code Hypertension Denies MO,DM,CVA,Lung disease,renal dise ase Screening colonoscopy on 10/02--3 [...]
--- OUTSIDE RECORDS SUMMARY | 2024-06-13 12:05 | XMS_ITS ---
Author Organization [facility] Address [address] [place] [address] Care Team Providers Care Electrical And Radio Mock Up Mechanic Name Role Phone Amy Rodriguez Primary Care Provider Unavailab Handy Lowe [phone] REASON FOR VISIT malignant neoplasm sigmoid, screening,hx polyps Encounters Encounter Location Date Provider Diagnosis [facility] Outpatient [address] [place] [phone] 04/05/2024 Handy Mendez Plan Of Treatment Next Appt Details Provider Name:Handy Mendez , 07/05/2024 10:30:00 AM, [address] [place] [address], [phone], Progress Notes * MARITZA GRANADOS MDOB: (64 yo M)Acc No.[id number]:04/05/2024 COLON WITH MAC Patient:?MARITZA GRANADOS Provider:?Handy Mendez MD :1960???Age:63 Y???Sex:Male Taurus e:04/05/2024 Address: [address] [place] Pcp:Amy Davila Subjective: * Chief Complaints: * ???1. Malignant neoplasm sig moid, screening,hx polyps. * Medical History:? Objective: * Vitals:? Assessment: Plan: * Treatment: * * The named appointment provid er may or may not be the originator of this progress note, and it is not deemed complete until electronically signed by the appointment provider. Sign off status: Pending * Provider:?Handy Mendez MD Date:? 025 Generated for Farida ochoa/Gay/Vlad on:?06/13/2024 12:05 PM EDT
--- OUTSIDE RECORDS SUMMARY | 2024-06-13 12:05 | XMS_ITS ---
Author Organization [facility] Address [address] [place] [address] Care Team Providers Care Storage Engineer Name Role Phone Amy Rodriguez Primary Care Provider Unavailab Handy Lowe [facility] [phone] REASON FOR VISIT bowel prep Medications Medication SIG (Take, Route, Frequency, Duration) [...] Active Encounters Encounter Location Date Provider Diagnosis [facility] [address] [address] 12/05/2023 Handy Mendez Plan Of Treatment Medication Medication Name Sig Start Date Stop [...] 07/05/2024 10:30:00 AM, [address] , [place], [place], [phone], Progress Notes * MARITZA GRANADOS MDOB: (63 yo M)Acc No.[id number]:12/05/2023 Patient:?MARITZA GRANADOS M :1960???Age:63 Y???Sex:Male Address:[address] [place] [address] [address], [place], [address] * Refills? Start Dulcolax (colon prep) Tablet Delayed Release, 5 MG, Orally, 4, take at 3:00 p.m and 7:00p.m., two tablets twice a day for one day, 1 day, Refills=0 Start MiraLax (colon prep) Powder, 17 GM/SCOOP, Orally, 1, 1 238Gm bottle mixed with Gatorade or Crystal Light, begin at 5:00 p.m. the day before the procedure, 1 day, Refills=0 * true * Date:? Generated for Farida ochoa/Gay/eTmarijasmitting on:?06/13/2024 12:05 PM EDT
== END 2024-06-13 10:37 | disposition home or self-care (01) ==
LOC: HO.HGS 09:53
PROVIDERS: PCP Internal Medicine; Visit Provider Surgery
DX: K64.9 Unspecified hemorrhoids (principal)
CPT/HCPCS: 46600; 99203

== ENCOUNTER → 2024-06-13 09:53 | Outpatient (BNVA) | payer OTHER, SELFPAY | PROVIDERS: PCP Internal Medicine; Visit Provider Surgery | DX: K64.9 Unspecified hemorrhoids (principal) | CPT/HCPCS: 46600; 99202 ==

== ENCOUNTER 2024-07-05 09:13 | Day surgery (SDC) | payer OTHER, SELFPAY ==
[2024-04-02 15:02] VITALS: BMI 33.0
--- NOTE | 2024-04-04 09:49 | P.CONAN_ITS ---
HPI - Anesthesia Eval Consult details Narrative: 63yo M for Colonoscopy Follows [facility] cardiology for HTN, cardiomegaly, AAA - stable at 12/2023 office visit, routine yearly f/u [facility] Active Problems Active Problems: All Active Problems Physical exam (Acute) Diabetes mellitus (Acute) COVID-19 virus infection (Acute) Obese (Acute) Muscle cramps (Acute) Unintentional weight loss (Acute) Encounter for Medicare annual wellness exam (Acute) Sebaceous cyst (Acute) LVH (left ventricular hypertrophy) (Acute) Essential (primary) hypertension (Acute) Pre-procedure lab exam (Acute) Hematemesis (Acute) Hemoptysis (Acute) Colon cancer (Chronic) Medicare annual wellness visit, initial (Acute) Rash (Acute) Mass of skin of back (Acute) Low TSH level (Acute) Lumbar degenerative disc disease (Acute) Pure hypercholesterolemia (Acute) Erectile dysfunction (Acute) Essential hypertension (Acute) Past Medical History Medical History (Updated 04/02/24 @ 15:02 by Kera Fischer RN) Rash Mass of skin of back Low TSH level GERD (gastroesophageal reflux disease) Ascending aorta dilatation Lumbar degenerative disc disease Pure hypercholesterolemia Erectile dysfunction Essential hypertension Family History Family History Father Myocardial infarction Mother Hypertension COPD (chronic obstructive pulmonary disease) Daughter Hypertension Heart problem Maternal Grandmother CAD (coronary artery disease) Stroke Paternal Grandfather Myocardial infarction Brother In good health Brother In good health Sister In good health Sister In good health Sister In good health Daughter In good health Daughter In good health Daughter In good health Family history of problems with anesthesia: No Surgical History Surgical History (Updated 04/02/24 @ 15:02 by Kera Fischer RN) History of colon resection History of colonoscopy History of colon cancer History of back surgery History of Problems with Anesthesia: No Social History Social History Household Members: None Housing: Apartment Are you a primary child care giver to a significant other at home: No Do you presently have visiting nurse or other home services: No Alcohol intake: never Patient Tobacco Use Status: Former Tobacco user Tobacco use type: Cigarette Years Smoked: 40 +/- e-Cigarette/Vaping Use: Never Used Second Hand Smoke Exposure: No service: No Current occupational status: disabled Cognitive needs: No Hearing needs: No Vision needs: Yes Meds Allergies Allergy/AdvReac Type Severity Reaction Status Date / Time No Known Allergies Allergy Verified 01/16/24 11:12 Home Medications ?Medication ?Instructions ?Recorded ?Confirmed ?Last Taken ?Type nrrlxwpvjwpw-Ns-stsx-minerals 18 1 tab PO DAILY 12/23/20 04/02/24 Unknown History mg-0.4 mg tablet (Maximum Daily Multivitamin) omega-3 fatty acids 1,000 mg 1,000 mg PO DAILY 08/06/21 04/02/24 Unknown History capsule Exam Height,Weight and Vital Signs: Height 5 ft 11.75 in Weight 109.769 kg Pertinent Lab Results Pertinent Lab Results: Laboratory Tests 11/28/23 19:40 WBC 7.5 Hgb 12.6 L Hct 35.7 L Plt Count 208 Sodium 142 Potassium 3.4 Chloride 103 Carbon Dioxide 30 H BUN 11 Creatinine 0.93 Narrative Narrative: EKG 12/2023 EKG Details: EKG with underlying sinus rhythm at 66/Min; leftward axis; nonspecific ST-T changes and otherwise unremarkable. Normal RI and corrected QT. ECHO 2022 Conclusions: - 1. Normal LV systolic function with mild LVH 2. Normal cardiac valvular Doppler 3. Mildly dilated ascending aorta at 4 cm 4. No gross pericardial effusion Assessment and Plan Assessment Anesthesia Assessment: Chart Reviewed Final Anesthetic Review Family History of Problems with Anesthesia: No History of Problems with Anesthesia: No
[2024-07-03 14:22] VITALS: BMI 33.0
--- NOTE | 2024-07-04 09:20 | P.CONAN_ITS ---
HPI - Anesthesia Eval Consult details Narrative: 64yo M for Colonoscopy Follows [facility] Cardiology for htn, AAA (4cm). Stable at 12/2023 routine yearly visit. [facility] Active Problems Active Problems: All Active Problems Daytime somnolence (Acute) Hemorrhoids (Acute) Physical exam (Acute) Diabetes mellitus (Acute) COVID-19 virus infection (Acute) Obese (Acute) Muscle cramps (Acute) Unintentional weight loss (Acute) Encounter for Medicare annual wellness exam (Acute) Sebaceous cyst (Acute) LVH (left ventricular hypertrophy) (Acute) Essential (primary) hypertension (Acute) Pre-procedure lab exam (Acute) Hematemesis (Acute) Hemoptysis (Acute) Colon cancer (Chronic) Medicare annual wellness visit, initial (Acute) Bleeding hemorrhoids (Acute) Rash (Acute) Mass of skin of back (Acute) Low TSH level (Acute) Lumbar degenerative disc disease (Acute) Pure hypercholesterolemia (Acute) Erectile dysfunction (Acute) Essential hypertension (Acute) Past Medical History Medical History (Updated 07/04/24 @ 09:23 by Maira Mullins NP) Diabetes mellitus TIA (transient ischemic attack) HTN (hypertension) Bleeding hemorrhoids Rash Mass of skin of back Low TSH level GERD (gastroesophageal reflux disease) Ascending aorta dilatation Lumbar degenerative disc disease Pure hypercholesterolemia Erectile dysfunction Essential hypertension Family History Family History Father Myocardial infarction Mother Hypertension COPD (chronic obstructive pulmonary disease) Daughter Hypertension Heart problem Maternal Grandmother CAD (coronary artery disease) Stroke Paternal Grandfather Myocardial infarction Brother In good health Brother In good health Sister In good health Sister In good health Sister In good health Daughter In good health Daughter In good health Daughter In good health Family history of problems with anesthesia: No Surgical History Surgical History (Updated 07/03/24 @ 14:17 by Ashley Montero RN) Hx of hemorrhoidectomy History of colon resection History of colonoscopy History of colon cancer History of back surgery History of Problems with Anesthesia: No Social History Social History Household Members: None Housing: Apartment Are you a primary healthcare administration intern to a significant other at home: No Do you presently have visiting nurse or other home services: No Alcohol intake: never Patient Tobacco Use Status: Former Tobacco user Tobacco use type: Cigarette Years Smoked: 40 +/- e-Cigarette/Vaping Use: Never Used Second Hand Smoke Exposure: No service: No Current occupational status: disabled Cognitive needs: No Hearing needs: No Vision needs: Yes Meds Allergies Allergy/AdvReac Type Severity Reaction Status Date / Time No Known Allergies Allergy Verified 06/13/24 10:05 Home Medications ?Medication ?Instructions ?Recorded ?Confirmed ?Last Taken ?Type bmxnwdwyzsnr-Wy-dpfe-minerals 18 1 tab PO DAILY 12/23/20 07/03/24 Unknown History mg-0.4 mg tablet (Maximum Daily Multivitamin) omega-3 fatty acids 1,000 mg 1,000 mg PO DAILY 08/06/21 06/13/24 Unknown History capsule cyclobenzaprine 10 mg tablet 10 mg PO BEDTIME PRN Muscle Spasm 07/03/24 07/03/24 Unknown History Exam Height,Weight and Vital Signs: Height 5 ft 11.75 in Weight 109.769 kg Pertinent Lab Results Pertinent Lab Results: Laboratory Tests 05/29/24 11:18 WBC 5.5 Hgb 12.1 L Hct 35.4 L Plt Count 205 Sodium 142 Potassium 3.6 Chloride 110 H Carbon Dioxide 25 BUN 21 H Creatinine 0.81 Narrative Narrative: EKG 12/2023 EKG Details: EKG with underlying sinus rhythm at 66/Min; leftward axis; nonspecific ST-T changes and otherwise unremarkable. Normal RI and corrected QT. ECHO 2022 Conclusions: - 1. Normal LV systolic function with mild LVH 2. Normal cardiac valvular Doppler 3. Mildly dilated ascending aorta at 4 cm 4. No gross pericardial effusion Assessment and Plan Assessment Anesthesia Assessment: Chart Reviewed Final Anesthetic Review Family History of Problems with Anesthesia: No History of Problems with Anesthesia: No
[2024-07-05 10:08] LABS: Glucose, Whole Blood 135 mg/dL (60-115)
[2024-07-05 10:15] VITALS: BP 141/78; PULSE 64; RESP 18; TEMP 36.6; O2SAT 98; BMI 32.8
[2024-07-05] MEDS: Lactated Ringers 1,000 ML 100 ML IVCONT (10:26)
--- NOTE | 2024-07-05 11:19 | HO.ANESPROP2 ---
[facility] Active Problems Active Problems: All Active Problems Daytime somnolence (Acute) Hemorrhoids (Acute) Physical exam (Acute) COVID-19 virus infection (Acute) Obese (Acute) Muscle cramps (Acute) Unintentional weight loss (Acute) Encounter for Medicare annual wellness exam (Acute) Sebaceous cyst (Acute) LVH (left ventricular hypertrophy) (Acute) Essential (primary) hypertension (Acute) Pre-procedure lab exam (Acute) Hematemesis (Acute) Hemoptysis (Acute) Colon cancer (Chronic) Medicare annual wellness visit, initial (Acute) Bleeding hemorrhoids (Acute) Rash (Acute) Mass of skin of back (Acute) Low TSH level (Acute) Lumbar degenerative disc disease (Acute) Pure hypercholesterolemia (Acute) Erectile dysfunction (Acute) Essential hypertension (Acute) Past Medical History Medical History Diabetes mellitus TIA (transient ischemic attack) HTN (hypertension) Bleeding hemorrhoids Rash Mass of skin of back Low TSH level GERD (gastroesophageal reflux disease) Ascending aorta dilatation Lumbar degenerative disc disease Pure hypercholesterolemia Erectile dysfunction Essential hypertension Family History Family History Father Myocardial infarction Mother Hypertension COPD (chronic obstructive pulmonary disease) Daughter Hypertension Heart problem Maternal Grandmother CAD (coronary artery disease) Stroke Paternal Grandfather Myocardial infarction Brother In good health Brother In good health Sister In good health Sister In good health Sister In good health Daughter In good health Daughter In good health Daughter In good health Family history of problems with anesthesia: No Surgical History Surgical History Hx of hemorrhoidectomy History of colon resection History of colonoscopy History of colon cancer History of back surgery History of Problems with Anesthesia: No Social History Social History Household Members: None Housing: Apartment Are you a primary home care aide to a significant other at home: No Do you presently have visiting nurse or other home services: No Alcohol intake: never Patient Tobacco Use Status: Former Tobacco user Tobacco use type: Cigarette Years Smoked: 40 +/- e-Cigarette/Vaping Use: Never Used Second Hand Smoke Exposure: No Use of substances other than those prescribed or required for medical reasons: No Have you been hit, kicked, punched, or otherwise hurt by someone within the past year? If so, by whom?: No Are you DNR?: No Advance Directives: No Advance Directives Information Provided: Yes Poor oral hygiene: No service: No Current occupational status: disabled Cognitive needs: No Hearing needs: No Vision needs: Yes Meds Allergies Allergy/AdvReac Type Severity Reaction Status Date / Time No Known Allergies Allergy Verified 06/13/24 10:05 Active Medications: Current Medications Lactated Ringer's (Lr) 1,000 mls @ 100 mls/hr IVCONT .Q10H CARL Last Admin: 07/05/24 10:26 Dose: 100 mls/hr Sodium Biphosphate/Sodium Phosphate (Sodium Phosphate,[place]-Dibasic 133 Ml Enema) 133 ml DE ONCE PRN PRN Reason: Poor Colonoscopy Prep Results Home Medications ?Medication ?Instructions ?Recorded ?Confirmed ?Last Taken ?Type wfylxfinlwnm-Gc-phdf-minerals 18 1 tab PO DAILY 12/23/20 07/03/24 Unknown History mg-0.4 mg tablet (Maximum Daily Multivitamin) omega-3 fatty acids 1,000 mg 1,000 mg PO DAILY 08/06/21 06/13/24 Unknown History capsule cyclobenzaprine 10 mg tablet 10 mg PO BEDTIME PRN Muscle Spasm 07/03/24 07/03/24 Unknown History Exam Height,Weight and Vital Signs: Height 5 ft 11.75 in Weight 108.862 kg Last Vital Signs Temp 97.8 F 07/05/24 10:15 Pulse 64 07/05/24 10:15 Resp 18 07/05/24 10:15 BP 141/78 H 07/05/24 10:15 Pulse Ox 98 07/05/24 10:15 O2 Del Method Room Air 07/05/24 10:15 Pertinent Lab Results Pertinent Lab Results: Laboratory Tests 07/05/24 10:04 POC Glucose 135 H Airway Mallampati Class: III TM Dist: >3cm Heart: RRR Lungs: CTA Assessment and Plan Assessment Anesthesia Assessment: Anesthesia Plan Discussed and Chart Reviewed Final Anesthetic Review Family History of Problems with Anesthesia: No History of Problems with Anesthesia: No NPO: Yes ASA Class: III Final Preanesthetic Review: Meds/Allgs Chart Reviewed, Consent Obtained/Reviewed and Anes Risks/Benef Reviewed Patient Risk: Intermediate Procedure Risk: Low Anesthetic Plan Anesthetic Plan: MAC: Disposition: Standard PACU
[2024-07-05 11:40] VITALS: BP 87/53; PULSE 64; RESP 16; TEMP 36.6; O2SAT 93
--- NOTE | 2024-07-05 11:42 | P.BOP_ITS ---
Brief Operative Note Date of Service: 07/05/24 Pre-op diagnosis: Screening Post-op diagnosis: other (Diverticulosis) Procedure: Colonoscopy to the cecum Surgeon: Handy Mendez MD Anesthesia: MAC Was an Trucking Contractor used for this Procedure?: No Estimated blood loss (mL): 0 Pathology: none sent Condition: stable Disposition: PACU
[2024-07-05 11:55] VITALS: BP 122/76; PULSE 61; RESP 18; TEMP 36.2; O2SAT 97
--- NOTE | 2024-07-05 12:08 | HO.POSTANES ---
Post Anesthesia Evaluation Post Anesthesia Evaluation Date of Service: 07/05/24 Vital Signs: Vital Signs Temp Pulse Resp BP Pulse Ox O2 Del Method 07/05/24 11:55 97.2 F 61 18 122/76 97 Room Air 07/05/24 11:40 97.8 F 64 16 87/53 L 93 Room Air 07/05/24 10:15 97.8 F 64 18 141/78 H 98 Room Air Anesthesia: Monitored Mental Status: Awake Pain Control: Satisfactory Nausea/Vomiting: None Hydration: Adequate Anesthesia-Related Issues: No Anes. Related Issues
--- NOTE | 2024-07-05 12:49 | OP_ITS ---
DATE OF SERVICE: 07/05/2024 SURGEON: Handy Mendez MD INDICATIONS: The patient presents for evaluation of personal history of colon cancer, personal history of tubular adenoma of the colon, and need for colorectal cancer screening. Full consent has been obtained from him for this, including risks of bleeding and perforation. PREOPERATIVE DIAGNOSIS: POSTOPERATIVE DIAGNOSIS: PROCEDURE PERFORMED: Colonoscopy to the cecum. ESTIMATED BLOOD LOSS: COMPLICATIONS: ANESTHESIA: Monitored anesthesia care. ASSISTANTS: SPECIMENS: PREOPERATIVE DIAGNOSES: Personal history of colon cancer, personal history of tubular adenoma of the colon, colorectal cancer screening. POSTOPERATIVE DIAGNOSES: Personal history of colon cancer, personal history of tubular adenoma of the colon, colorectal cancer screening, diverticulosis, and internal hemorrhoids. DESCRIPTION OF PROCEDURE: The patient was placed in left lateral decubitus position. The digital rectal exam revealed no abnormalities. The Olympus videopediatric colonoscope was entered into the rectum and advanced easily to the cecum. In the cecum, I did identify cecal pouch with appendiceal orifice. There was some residual stool in the cecum, which was irrigated and moved away as best as possible, but did not allow complete visualization of the cecum. The ileocecal valve appeared normal. The scope was then slowly withdrawn assessing all mucosal surfaces carefully. Preparation throughout the colon was good, but there was still some areas of limited visualization due to some retained stool. I did not visualize any sign of polyps or colitis. There was a scattered diverticula in the ascending colon and descending colon. The anastomosis from his previous surgery was seen between 20 and 25 cm and appeared normal. The scope was retroflexed in the rectum visualizing internal hemorrhoids, but no other pathology. The scope was straightened and withdrawn from the patient. He tolerated the procedure well and was returned to recovery area in stable condition. IMPRESSION: 1. Diverticulosis. 2. Internal hemorrhoids. PLAN: I would recommend a repeat colonoscopy in 3 years for further followup given his history of colon cancer, colon polyps, and the areas of some limited visualization today. He will otherwise see me on a p.r.n. basis. He was advised to resume his aspirin today. MD KIAN Levi/YOHANNES / [id number]
== END 2024-07-05 12:20 | disposition home or self-care (01) ==
PROVIDERS: PCP Internal Medicine; Visit Provider Internal Medicine
PROC: 0DJD8ZZ Inspection of Lower Intestinal Tract, Via Natural or Artificial Opening Endoscopic (ICD-10-PCS; CPT 45378; principal; 2024-07-05 10:30)
DX: Z12.11 Encounter for screening for malignant neoplasm of colon (principal); K57.30 Diverticulosis of large intestine without perforation or abscess without bleeding; K64.8 Other hemorrhoids; K63.89 Other specified diseases of intestine; Z86.0101 Personal history of adenomatous and serrated colon polyps; Z85.038 Personal history of other malignant neoplasm of large intestine; Z87.891 Personal history of nicotine dependence; Z79.02 Long term (current) use of antithrombotics/antiplatelets; Z79.84 Long term (current) use of oral hypoglycemic drugs; Z79.82 Long term (current) use of aspirin; Z79.899 Other long term (current) drug therapy
CPT/HCPCS: G0105; 82947; J2003; J2704

== ENCOUNTER → 2024-09-30 08:47 | Outpatient (REF) | payer OTHER, SELFPAY ==
--- OUTSIDE RECORDS SUMMARY | 2024-04-05 03:30 | XMS_ITS ---
Author Organization [facility] Address [address] [place] [address] Care Team Providers Care Carbide Powder Processor Name Role Phone Amy Rodriguez Primary Care Provider UnavailHandy Enamorado [phone] REASON FOR VISIT malignant neoplasm sigmoid, screening,hx polyps Encounters Encounter Location Date Provider Diagnosis [facility] [address] [place] [phone] 04/05/2024 Handy Mendez Plan Of Treatment No Information Progress Notes * MARITZA GRANADOS MDOB: 2 (64 yo M)Acc No.[id number]:04/05/2024 COLON WITH MAC Patient: DIEGO HARVEYSUS M Provider: Holley Mendez MD :1960 A ge:63 Y S ex:Male Date:04/05/2024 Address:[address] [place], [place] [address] [place] [id number] Pcp:Amy Davila Subjective: * Chief Complaints: * 1 . Malignant neoplasm sigmoid, screening,hx polyps. * Medical History: Objective: * Vitals: Assessment: Plan: * Treatment: * * The named appointment provid er may or may not be the originator of this progress note, and it is not deemed complete until electronically signed by the appointment provider. Sign off status: Pending * Provider: Holley Mendez MD Date: 0 04/05/2024 Generated for Farida ochoa/Gay/Silvinosmitting on: 0 09/30/2024 08:56 AM EDT
== END ==
LOC: HO.SL 08:47
PROVIDERS: PCP Internal Medicine; Visit Provider Internal Medicine
DX: G47.33 Obstructive sleep apnea (adult) (pediatric) (principal); R40.0 Somnolence
CPT/HCPCS: 95806

== ENCOUNTER → 2024-09-30 09:08 | Outpatient (BNV) | payer OTHER, SELFPAY | PROVIDERS: PCP Internal Medicine; Visit Provider Psychiatry & Neurology Neurology | DX: R40.0 Somnolence (principal) | CPT/HCPCS: 95806 ==

== ENCOUNTER 2024-10-03 15:22 | Outpatient (AMB) | payer OTHER, SELFPAY ==
--- OUTSIDE RECORDS SUMMARY | 2024-04-05 03:30 | XMS_ITS ---
Author Organization [facility] Address [address] [place] [address] Care Team Providers Care Wet End Tester Name Role Phone Amy Rodriguez Primary Care Provider UnavailHandy Enamorado [phone] REASON FOR VISIT malignant neoplasm sigmoid, screening,hx polyps Encounters Encounter Location Date Provider Diagnosis [facility] [place] [address] [place] [phone] 04/05/2024 Handy Mendez Plan Of Treatment No Information Progress Notes * MARITZA GRANADOS MDOB: (64 yo M)Acc No.[id number]:04/05/2024 COLON WITH MAC Patient: DIEGO HARVEYSUS M Provider: Holley Mendez MD :1960 A ge:63 Y S ex:Male Date:04/05/2024 Address: [address] [id number] Pcp:Amy Davila Subjective: * Chief Complaints: * [...] MD Date: 0 04/05/2024 Generated for Farida ochoa/Gay/eTransmitting on: 0 10/03/2024 03:25 PM EDT
--- NOTE | 2024-10-03 15:32 | A.OFFPC_ITS ---
Vital Signs 10/03/24 15:33 Height 5 ft 11.75 in Weight 247 lb BMI 33.7 BP 132/86 Blood Pressure Location Lt brachial Position Sitting Intake Visit Reasons: 4 month f/u- A1C needed Volunteer Recruitment Coordinator Required: No Accompanied by: Spouse Allergies No Known Allergies Allergy (Verified 10/03/24 15:41) Medication List - Last Reconciled 10/03/24 by Amy Davila MD aspirin 81 mg PO DAILY 90 days atorvastatin 20 mg PO DAILY blood pressure test kit-large As directed blood pressure test kit-medium As directed blood sugar diagnostic (FreeStyle Lite Strips) Use 1 test strip once a day blood-glucose meter (FreeStyle Lite Meter kit) As directed carvedilol (Coreg) 6.25 mg PO BID 90 days cyclobenzaprine 10 mg PO BEDTIME PRN hydralazine 100 mg PO Q8H 90 days hydrochlorothiazide 25 mg PO QAM ibuprofen 600 mg PO Q6H PRN lancets (FreeStyle Lancets) Use 1 lancet once a day losartan 100 mg PO DAILY 90 days metformin 500 mg PO BID 90 days miscellaneous medical supply 1 ea miscellaneous ONCE myyletmvxoef-Lu-dmmz-minerals (Maximum Daily Multivitamin) 1 tab PO DAILY omega-3 fatty acids 1,000 mg PO DAILY tadalafil (Cialis) 20 mg PO DAILY PRN 90 days tramadol 50 mg PO Q6H PRN 90 days Tobacco use date assessed: 05/29/24 Dental Screening Dental Screen Date: 05/29/24 HPI HPI Comments History of Present Illness Details The patient is a 64-year-old male presenting with follow-up for diabetes mellitus, hypertension, pure hypercholesterolemia, and history of colon cancer. Diabetes mellitus is well managed with an A1c of 6.3%, and hypertension is controlled with medications. The patient's pure hypercholesterolemia is under control, with an LDL level of 43 mg/dL recorded in May. Vitamin D levels are normal with supplementation. The patient has a history of colon cancer, with the last colonoscopy in July and the next scheduled in 3 weeks. Chronic low back pain is managed with tramadol, and the patient denies chest pain or dyspnea, taking aspirin for coronary artery disease prophylaxis. [facility] Medical History (Updated 10/03/24 @ 15:56 by Amy Davila MD) Diabetes mellitus TIA (transient ischemic attack) HTN (hypertension) Bleeding hemorrhoids Rash Mass of skin of back Low TSH level GERD (gastroesophageal reflux disease) Ascending aorta dilatation Lumbar degenerative disc disease Pure hypercholesterolemia Erectile dysfunction Essential hypertension Surgical History Hx of hemorrhoidectomy History of colon resection History of colonoscopy History of colon cancer History of back surgery Family History Father Myocardial infarction Mother Hypertension COPD (chronic obstructive pulmonary disease) Daughter Hypertension Heart problem Maternal Grandmother CAD (coronary artery disease) Stroke Paternal Grandfather Myocardial infarction Brother In good health Brother In good health Sister In good health Sister In good health Sister In good health Daughter In good health Daughter In good health Daughter In good health Social History Household Members: None Housing: Apartment Are you a primary regular senior care provider to a significant other at home: No Do you presently have visiting nurse or other home services: No Alcohol intake: never Patient Tobacco Use Status: Former Tobacco user Tobacco use type: Cigarette Years Smoked: 40 +/- e-Cigarette/Vaping Use: Never Used Second Hand Smoke Exposure: No service: No Current occupational status: disabled Cognitive needs: No Hearing needs: No Vision needs: Yes Questionnaire PHQ-9 Over the last 2 weeks, how often have you been bothered by any of the following problems? 1. Little interest or pleasure in doing things: not at all 2. Feeling down, depressed, or hopeless: not at all 3. Trouble falling or staying asleep, or sleeping too much: several days 4. Feeling tired or having little energy: several days 5. Poor appetite or overeating: not at all 6. Feeling bad about yourself - or that you are a failure or have let yourself or your family down: not at all 7. Trouble concentrating on things, such as reading the newspaper or watching television: not at all 8. Moving or speaking so slowly that other people could have noticed. Or the opposite - being so fidgety or restless that you have been moving around a lot more than usual: not at all 9. Thoughts that you would be better off or of hurting yourself in some way: not at all Total score: 2 Depression Screening Interpretation: Negative Depression Screening Done: Yes 97145 - PHQ-9 Billing: Yes Source: Developed by Drs. Handy Allen, Willian Andre and colleagues, with an educational lacho from [employer]. Thrive Questionnaire Date Thrive assessed: 05/29/24 I am a: Patient What is your living situation today?: I have a steady place to live Within the past 12 months, did the food you bought not last and you didn't have the money to get more?: I choose not to answer this question Within the past 12 months, did you worry whether your food would run out before you got money to buy more?: Often true Do you have trouble paying for medicines?: No Do you have trouble getting transportation to medical appointments?: No Do you have trouble paying your heating and electricity bill?: No Do you have trouble taking care of your child, family member or friend?: No Do you have trouble with day-to-day activities such as bathing, preparing meals, shopping, managing finances, etc.?: No Are you currently unemployed and looking for a job?: I choose not to answer this question Are you interested in more education?: No Please select the resources that you would like help with: None Currently or been in a relationship where the following occur: I choose not to answer THRIVE Score: 1 AUDIT C Alcohol Use Questionnaire (AUDIT-C) 1. How often do you have a drink containing alcohol?: Never Total Score: 0 Score Reviewed/Action Taken: No JOSETTE-7 AMB Questionnaire JOSETTE-7 Date JOSETTE - 7 assessed: 05/29/24 Feeling nervous, anxious, or on edge: 0 = Not at all Not being able to stop or control worryin = Not at all Worrying too much about different things: 0 = Not at all Trouble relaxin = Not at all Being so restless that it is hard to sit still: 0 = Not at all Becoming easily annoyed or irritable: 0 = Not at all Feeling afraid as if something awful might happen: 0 = Not at all Total JOSETTE-7 score (0-4 normal; 5-9 mild; 10-14 moderate; 15-21 severe): 0 Source: Developed by Mesha Middleton Alcides, Willian Pelletier and colleagues, with an educational lacho from [employer]. JOSETTE-7 Assessment Billing JOSETTE-7 Assessment Tool: JOSETTE-7 Assessment 24317 Review of Systems Const All systems reviewed & are unremarkable except as noted in HPI and below Card Denies chest pain at rest, Denies chest pain with activity, Denies edema, Denies irregular heart rhythm, Denies claudication, Denies dyspnea, Denies dyspnea on exertion, Denies orthopnea, Denies paroxysmal nocturnal dyspnea and Denies slow heart rate Resp Denies cough, Denies dyspnea and Denies dyspnea on exertion GI Denies abdominal pain, Denies change in bowel habits, Denies excessive flatus, Denies nausea and Denies vomiting Physical exam (Primary Care) Vital Signs: Last Vital Signs BP 132/86 10/03/24 15:33 BMI result Body Mass Index 33.7 Tobacco/Smoking Status: Tobacco use Status Tobacco use date assessed 05/29/24 10/03/24 15:35 Patient Tobacco Use Status Former Tobacco user 10/03/24 15:35 Tobacco use type Cigarette 10/03/24 15:35 e-Cigarette/Vaping Use Never Used 10/03/24 15:35 PHQ-9: PHQ-9 Score PHQ-9: Total score 2 10/03/24 15:35 Depression Screening Interpretation: Negative Thrive Assessment: Date of Thrive Assessment Date Thrive assessed 05/29/24 10/03/24 15:35 Currently or been in a relationship where the following occur: I choose not to answer Resp Effort & Inspection: normal respiratory effort Auscultation: clear to auscultation bilaterally Cardio Jugular venous distension: no JVD Rate: regular rate Rhythm: regular rhythm Heart sounds: S1 normal heart sound present and S2 normal heart sound present Extrem General: Yes full ROM Results AMB Hemoglobin A1c AMB Hemoglobin A1c 6.3 % Last Edit by JORDON Cabrera on 10/03/24 15:4 5 Coding Level of Care Code Est Pt Level 4 (75560) Complex EM visit Add On G2211 Diagnoses Type 2 diabetes mellitus without complication, without long-term current use of insulin E11.9 Diabetes mellitus type: type 2 Diabetes mellitus assisted insulin use: without rat exterminator use Diabetes mellitus complication status: without complication Essential hypertension I10 Pure hypercholesterolemia E78.00 Malignant neoplasm of colon, unspecified part of colon C18.9 Colon location: unspecified part of colon Lumbar degenerative disc disease M51.36 GERD (gastroesophageal reflux disease) K21.9 Additional Codes PHQ-9 - 76739 - PHQ-9 Billing: Yes ([id number]) JOSETTE-7 Assessment Billing - JOSETTE-7 Assessment Tool: JOSETTE-7 Assessment 64900 ([id number]) Time Spent (min) 23 Assessment & Plan Assessment & Plan (1) Diabetes mellitus: Code(s): E11.9 - Type 2 diabetes mellitus without complications Category: Medical Qualifiers: Diabetes mellitus type: type 2 Diabetes mellitus assisted insulin use: without rat exterminator use Diabetes mellitus complication status: without complication Qualified Code(s): E11.9 - Type 2 diabetes mellitus without complications (2) Essential hypertension: Code(s): I10 - Essential (primary) hypertension Category: Medical (3) Pure hypercholesterolemia: Code(s): E78.00 - Pure hypercholesterolemia, unspecified Category: Medical (4) Colon cancer: Comment: Diagnosed in 2014 and treated with resection in May 2015 Code(s): C18.9 - Malignant neoplasm of colon, unspecified Category: Medical Qualifiers: Colon location: unspecified part of colon Qualified Code(s): C18.9 - Malignant neoplasm of colon, unspecified (5) Lumbar degenerative disc disease: Code(s): M51.36 - Other intervertebral disc degeneration, lumbar region Category: Medical (6) GERD (gastroesophageal reflux disease): Code(s): K21.9 - Gastro-esophageal reflux disease without esophagitis Category: Medical Plan The patient will maintain the current diabetes management plan as the A1c is well controlled. Hypertension will continue to be managed with the current medication regimen. For hypercholesterolemia, the patient will continue with the current lipid- lowering therapy. Vitamin D supplementation will be maintained. Chronic low back pain will be managed with tramadol, and aspirin will be continued for coronary artery disease prophylaxis. The patient is scheduled for a colonoscopy in 3 weeks for routine surveillance. Patient was informed and verbally consented to the use of an ambient scribe for clinic note documentation during this visit. Orders: Orders Lipid Panel 4 Months E78.5 - Hyperlipidemia, unspecified Complete Blood Count Auto Diff 4 Months D64.9 - Anemia, unspecified Vitamin B12 and Folate 4 Months E53.8 - Deficiency of other specified B group vitamins Comprehensive Met. Panel 4 Months E11.9 - Type 2 diabetes mellitus without complications AMB Hemoglobin A1c Today E11.9 - Type 2 diabetes mellitus without complications Microalbumin, Random (w Creat) 4 Months R80.9 - Proteinuria, unspecified Vitamin D 25-OH Total 4 Months E55.9 - Vitamin D deficiency, unspecified IRON PROFILE 4 Months D64.9 - Anemia, unspecified
[2024-10-03 15:33] VITALS: BP 132/86; BMI 33.7
== END 2024-10-03 15:54 | disposition home or self-care (01) ==
LOC: HO.HMCH 15:23
PROVIDERS: PCP Internal Medicine; Visit Provider Internal Medicine
DX: E11.9 Type 2 diabetes mellitus without complications (principal); I10 Essential (primary) hypertension; E78.00 Pure hypercholesterolemia, unspecified; C18.9 Malignant neoplasm of colon, unspecified; M51.369 Other intervertebral disc degeneration, lumbar region without mention of lumbar back pain or lower extremity pain; K21.9 Gastro-esophageal reflux disease without esophagitis

== ENCOUNTER → 2024-10-03 15:22 | Outpatient (BNVA) | payer OTHER, SELFPAY | PROVIDERS: PCP Internal Medicine; Visit Provider Internal Medicine | DX: E11.9 Type 2 diabetes mellitus without complications (principal); I10 Essential (primary) hypertension; E78.00 Pure hypercholesterolemia, unspecified; C18.9 Malignant neoplasm of colon, unspecified; M51.360 Other intervertebral disc degeneration, lumbar region with discogenic back pain only; K21.9 Gastro-esophageal reflux disease without esophagitis; Z79.891 Long term (current) use of opiate analgesic | CPT/HCPCS: 83036; 96127; 99212 ==

== ENCOUNTER 2024-12-23 09:57 | Outpatient (AMB) | payer OTHER, SELFPAY ==
--- OUTSIDE RECORDS SUMMARY | 2024-04-05 03:30 | XMS_ITS ---
Author Organization [facility] Address [address] [place] [address] Care Team Providers Care Wellfield Technician Name Role Phone Amy Rodriguez Primary Care Provider UnavailHandy Enamorado [phone] REASON FOR VISIT malignant neoplasm sigmoid, screening,hx polyps Encounters Encounter Location Date Provider Diagnosis [facility] [place] [address] [place] [phone] 04/05/2024 Handy Mendez Plan Of Treatment No Information Progress Notes * MARITZA GRANADOS MDOB: 2 (64 yo M)Acc No.[id number]:04/05/2024 COLON WITH MAC Patient: DIEGO HARVEYSUS M Provider: Holley Mendez MD :1960 A ge:63 Y S ex:Male Date:04/05/2024 Address: [address] [id number] Pcp:Amy Davila Subjective: * Chief Complaints: * [...] 04/05/2024 Generated for Farida ochoa/Gay/Silvinosmitting on: 0 12/23/2024 12:11 PM EDT
--- OUTSIDE RECORDS SUMMARY | 2024-07-05 06:30 | XMS_ITS ---
Author Organization [facility] Address [address] [place] [address] Care Team Providers Care Plumbing Assembler Installer Name Role Phone Amy Rodriguez Primary Care Provider UnavailHandy Enamorado [phone] REASON FOR VISIT colon screening Encounters Encounter Location Date Provider Diagnosis [facility] Outpatient [address] [place] [phone] 07/05/2024 Handy Mendez Colon cancer scree preet [...] MARITZA GRANADOS MDOB: 2 (64 yo M)Acc No.[id number]:07/05/2024 COLON WITH MAC Patient: Antoni COLEMARITZA Provider: Holley Mendez MD :1960 A ge:64 Y S ex:Male Date:07/05/2024 Address:[address], [place], [id number] Pcp:Amy Davila Subjective: * Chief Complaints: * [...] 0 07/05/2024 Generated for Farida ochoa/Gay/Elizabethitting on: 0 12/23/2024 12:11 PM EDT
[2024-12-23 10:08] VITALS: BP 130/68; PULSE 70; BMI 35.0
--- NOTE | 2024-12-23 10:08 | MHC.OFFVIS ---
Vital Signs 12/23/24 10:08 Height 5 ft 11 in Weight 251 lb 5.231 oz BMI 35.0 BP 130/68 Blood Pressure Location Lt brachial Position Sitting Pulse 70 Pulse Source Monitor Intake Visit Reasons: 1 year follow-up with ekg Allergies No Known Allergies Allergy (Verified 10/03/24 15:41) Medication List - Last Reconciled 12/23/24 by Wilbert Varela MD aspirin 81 mg PO DAILY 90 days atorvastatin 20 mg PO DAILY blood pressure test kit-large As directed blood pressure test kit-medium As directed blood sugar diagnostic (FreeStyle Lite Strips) Use 1 test strip once a day blood-glucose meter (FreeStyle Lite Meter kit) As directed carvedilol 6.25 mg PO BID cyclobenzaprine 10 mg PO BEDTIME PRN hydralazine 100 mg PO Q8H 90 days hydrochlorothiazide 25 mg PO QAM ibuprofen 600 mg PO Q6H PRN lancets (FreeStyle Lancets) Use 1 lancet once a day losartan 100 mg PO DAILY 90 days metformin 500 mg PO BID 90 days miscellaneous medical supply 1 ea miscellaneous ONCE rwmbefycktkt-Ju-zjhm-minerals (Maximum Daily Multivitamin) 1 tab PO DAILY omega-3 fatty acids 1,000 mg PO DAILY tadalafil (Cialis) 20 mg PO DAILY PRN 90 days tramadol 50 mg PO Q6H PRN 90 days HPI Comments Details: Leandro returns for follow-up regarding hypertension. To recall, few years ago, when he went for his brother's in [place], patient developed very high blood pressure and had to be hospitalized locally. At that time, main symptom was apparently headache. Then he underwent extensive testing including carotid studies, brain MRI, cardiac catheterization among others. Since then, he has been on blood pressure medications. Overall, he is doing good. No cardiac symptoms. [facility] Medical History (Updated 10/03/24 @ 15:56 by Amy Davila MD) Diabetes mellitus TIA (transient ischemic attack) HTN (hypertension) Bleeding hemorrhoids Rash Mass of skin of back Low TSH level GERD (gastroesophageal reflux disease) Ascending aorta dilatation Lumbar degenerative disc disease Pure hypercholesterolemia Erectile dysfunction Essential hypertension Surgical History Hx of hemorrhoidectomy History of colon resection History of colonoscopy History of colon cancer History of back surgery Family History Father Myocardial infarction Mother Hypertension COPD (chronic obstructive pulmonary disease) Daughter Hypertension Heart problem Maternal Grandmother CAD (coronary artery disease) Stroke Paternal Grandfather Myocardial infarction Brother In good health Brother In good health Sister In good health Sister In good health Sister In good health Daughter In good health Daughter In good health Daughter In good health Social History Household Members: None Housing: Apartment Are you a primary companion caregiver to a significant other at home: No Do you presently have visiting nurse or other home services: No Alcohol intake: never Patient Tobacco Use Status: Former Tobacco user Tobacco use type: Cigarette Years Smoked: 40 +/- e-Cigarette/Vaping Use: Never Used Second Hand Smoke Exposure: No service: No Current occupational status: disabled Cognitive needs: No Hearing needs: No Vision needs: Yes Review of Systems Const Denies weakness ENT Denies dizziness Card Denies chest pain, Denies chest pain with activity, Denies syncope, Denies rapid heart rate, Denies pedal edema, Denies edema, Denies leg edema, Denies lightheadedness, Denies palpitations, Denies dyspnea, Denies dyspnea on exertion and Denies orthopnea Resp Denies cough, Denies dyspnea and Denies dyspnea on exertion GI Denies hematochezia and Denies change in stool character Musc Denies abnormal gait, Denies muscle cramps, Denies muscle weakness, Denies numbness, Denies radiating pain into limb and Denies tingling Neuro Denies abnormal gait, Denies dizziness, Denies syncope, Denies numbness, Denies tingling and Denies weakness Endo Denies palpitations Physical Exam Vital Signs: Last Vital Signs Pulse 70 12/23/24 10:08 BP 130/68 12/23/24 10:08 BMI result Body Mass Index 35.0 Const General: comfortable and no acute distress Orientation/consciousness: patient oriented x3 HEENT Other: Unremarkable Head: Yes normal to inspection Neck Neck: Yes normal visual inspection Chest Chest palpation & inspection: normal inspection of the chest Resp Auscultation: clear to auscultation bilaterally Cardio Palpation: normal PMI Heart sounds: S1 normal heart sound present, S2 normal heart sound present, no gallops, no murmurs and no rubs GI Palpation (GI): Soft to palpation Back/Spine/Pelvis Other: unremarkable Skin General skin exam: no rashes or lesions noted Neuro General: patient oriented x3 Extrem General: Yes normal to inspection Psych Mental Status: mental status grossly normal Office Procedures EKG Details: EKG with underlying sinus rhythm at 70/Min; no ischemic changes; [place] [id number]-Ciuhkbxxevhjqzfwi, Complete Assessment & Plan Assessment & Plan (1) Essential (primary) hypertension: Code(s): I10 - Essential (primary) hypertension Category: Medical Plan: Current regimen seems to include carvedilol, hydrochlorothiazide, hydralazine, losartan. Stable. (2) LVH (left ventricular hypertrophy): Code(s): I51.7 - Cardiomegaly Category: Medical Plan: Mild left ventricular hypertrophy in the last echocardiogram. Likely all from hypertension. No specific management apart from blood pressure control. (3) Ascending aorta dilatation: Code(s): I77.810 - Thoracic aortic ectasia Category: Medical Plan: In the last echocardiogram, ascending aortic size 4 cm. Probably acceptable considering his height and weight. May recheck. Orders: Orders CA echo transthoracic complete Today I77.810 - Thoracic aortic ectasia Coding Level of Care Code Est Pt Level 3 (40139) Diagnoses Essential (primary) hypertension I10 LVH (left ventricular hypertrophy) I51.7 Ascending aorta dilatation I77.810 CPT Codes EKG - CPT: 53253-Poauixxdeeobpmygd, Complete ([id number])
--- OUTSIDE RECORDS SUMMARY | 2024-12-23 12:12 | XMS_ITS | Patient Health Record ---
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 Name Role Phone Amy Rodriguez Primary Care Provider Handy Duncan Unavailable [phone] Allergies No Known Allergies Results Component Value Reference Range Notes Glucose, Whole Blood Reviewed date:07/06/2024 01:47:34 PM Interpretation: Performing Lab:[facility], [address] [place] [id number] Notes/Report: Glucose, Whole Blood 135 60-115 mg/dL METER # : [id number] Reason For Referral No Information Medications Medication [...] Problem Status W/U Status Risk Notes Problem [id number] Encounter for screening for malignant neoplasm of colon (Z12.11) Active confirmed Problem 919560382 History of adenomatous polyp of colon (Z86.010) Active confirmed Problem 890442784 Malignant neoplasm of sigmoid colon (C18.7) Active confirmed Problem Screening for malignant neoplasm of rectum (856299396) Encounter for screening for malignant neoplasm of rectum (Z12.12) Active confirmed Problem History of malignant neoplasm of colon (930879875) Personal history of other malignant neoplasm of large intestine (Z85.038) Active confirmed Problem History of gastrointestinal tract bypass (707482285) Intestinal bypass and anastomosis status (Z98.0) Active confirmed Problem 049393879 Abnormal CT of liver (R93.2) Active confirmed Problem 988832700946702 Preprocedural examination (Z01.818) Active confirmed Problem 850482037 Elevated liver enzymes (R74.8) Active confirmed Problem 339301368 History of colon polyps (Z86.010) Active confirmed Problem 251942279 Fatty liver (K76.0) Active confirmed Problem 202785667 History of colon cancer (Z85.038) Active confirmed Problem 146107140 Cancer of sigmoi d colon (C18.7) Active confirmed Problem 20980889 Hepatic hemangioma (D18.03) Active confirmed Problem Diverticulosis of colon (887163877) Diverticulosis of colon (K57.30) Active confirmed Encounters Encounter Location Date Provider Diagnosis [facility] Outpatient [address] [place] [address] [id number] 07/05/2024 Handy Vanessa Colon cancer screeni ng Z12.11 ; History of colon cancer Z85.038 ; Diverticulosis of large intestine without perforation or abscess without bleeding K57.30 and Other hemorrhoids K64.8 [facility] [address] [place] [id number] 04/04/2024 Handy Mendez Assessments Encounter Date Diagnosis (ICD Code) Assessment Notes Treatment Notes Treatment Clinical Notes Section Notes 07/05/2024 Colon cancer screening (ICD-10 - Z12.11) 07/05/2024 History of colon cancer (ICD-10 - Z85.038) 07/05/2024 Diverticulosis of large intestine without perforation or abscess without bleeding (ICD-10 - K57.30) 07/05/2024 Other hemorrhoids (ICD-10 - K64.8) Plan Of Treatment Pending Test Test Name Order Date MRI ABD W&WO CONTRAST 01/23/2015 Future Test Test Name Order Date COLONOSCOPY 10/30/2014 COLONOSCOPY 03/16/2016 COLONOSCOPY 09/28/2017 COLONOSCOPY 12/08/2020 COLONOSCOPY 12/05/2023 Insurance Providers Payer Name Payer Address Payer Phone Subscriber Number Group Number Insured Name Patient Relationship to Insured Coverage Start Date Coverage End Date [facility] [address] Attn Claims [place] [id number] GRANADOSMARITZA Chua Self - patient is the insured Medical (General) History Medical History History ICD Code Hypertension Denies AL,DM,CVA,Lung disease,renal dise ase Screening colonoscopy on 10/02--3 [...] above Negative colonoscopy in 10/2017 TIA in 2018 NIDDM Screening colonoscopy in Jan with a small tubular adenoma removed Surgical History Surgery Date(Month/Year) Back surgery x 2--1999, 2013 Hemorrhoid surgery Surgery for colon cancer(mal ignant colon polyp) with Dr Cook on 05/08/2015--sigmoid resection; revealed no sign of any residual adenoma nor carcinoma--- one lymph node was negative for cancer; sees Dr. Bess
== END 2024-12-23 10:26 | disposition home or self-care (01) ==
PROVIDERS: PCP Internal Medicine; Visit Provider Internal Medicine
DX: I10 Essential (primary) hypertension (principal); I51.7 Cardiomegaly; I77.810 Thoracic aortic ectasia
CPT/HCPCS: 93010; 99213

== ENCOUNTER → 2024-12-23 09:57 | Outpatient (BNVA) | payer OTHER, SELFPAY | PROVIDERS: PCP Internal Medicine; Visit Provider Internal Medicine | DX: I77.810 Thoracic aortic ectasia (principal); I10 Essential (primary) hypertension; I51.7 Cardiomegaly | CPT/HCPCS: 93005; 99212 ==

== ENCOUNTER 2025-02-06 13:25 | Outpatient (AMB) | payer OTHER, SELFPAY ==
--- OUTSIDE RECORDS SUMMARY | 2024-07-05 05:30 | XMS_ITS ---
Author Organization [facility] Address [address] [place] [address] Care Team Providers Care Linux Systems Administrator Name Role Phone Amy Rodriguez Primary Care Provider UnavailHandy Enamorado [phone] REASON FOR VISIT colon screening Encounters Encounter Location Date Provider Diagnosis [facility] [address] [place] [phone] 07/05/2024 Handy Mendez Colon cancer scree preet Z12.11 ; History of colon cancer Z85.038 ; Diverticulosis of large intestine without perforation or abscess without bleeding K57.30 and Other hemorrhoids K64.8 Assessments Encounter Date Diagnosis (ICD Code) Assessment Notes Treatment Notes Treatment Clinical Notes Section Notes 07/05/2024 Colon cancer screening (ICD-10 - Z12.11) 07/05/2024 History of colon cancer (ICD-10 - Z85.038) 07/05/2024 Diverticulosis of large intestine without perforation or abscess without bleeding (ICD-10 - K57.30) 07/05/2024 Other hemorrhoids (ICD-10 - K64.8) Plan Of Treatment No Information Progress Notes * MARITZA GRANADOS MDOB: 2 (64 yo M)Acc No.[id number]:07/05/2024 COLON WITH MAC Patient: Antoni COLEMARITZA Provider: Holley Mendez MD :1960 A ge:64 Y S ex:Male Date:07/05/2024 Address:[address], [place], [id number] Pcp:Amy Davila Subjective: * Chief Complaints: * 1 . Colon screening. * Medical History: Objective: * Vitals: Assessment: * Assessment: 1. C olon cancer screening - Z12.11 (Primary) 2 . H istory of colon cancer - Z85.038 3 . D iverticulosis of large intestine without perforation or abscess without bleeding - K57.30 4 . O ther hemorrhoids - K64.8 Plan: * Treatment: * Procedure Codes: 4 5378 DIAGNOSTIC COLONOSCOPY, Modifiers: 33 , 0529F INTRVL 3+YRS PTS CLNSCP DOCD, 0528F RCMND FLW-UP 10 YRS DOCD * * The named appointment provid er may or may not be the originator of this progress note, and it is not deemed complete until electronically signed by the appointment provider. Sign off status: Pending * Provider: Holley Mendez MD Date: 0 07/05/2024 Generated for Farida ochoa/Gay/Elizabethitting on: 04/08/2024 04:18 PM EST
[2025-02-06 13:28] VITALS: BP 130/72; PULSE 76; RESP 18; TEMP 36.3; O2SAT 96; BMI 35.2
--- NOTE | 2025-02-06 13:28 | MHC.PC.OV ---
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 Required: No Accompanied by: Self / Same As Patient Allergies No Known Allergies Allergy (Verified 02/06/25 13:40) Medication List - Last Reconciled 02/06/25 by Amy Davila MD aspirin 81 mg PO DAILY 90 days atorvastatin 20 mg PO DAILY blood pressure test kit-large As directed blood pressure test kit-medium As directed blood sugar diagnostic (FreeStyle Lite Strips) Use 1 test strip once a day blood-glucose meter (FreeStyle Lite Meter kit) As directed carvedilol 6.25 mg PO BID cyclobenzaprine 10 mg PO BEDTIME PRN hydralazine 100 mg PO Q8H 90 days hydrochlorothiazide 25 mg PO QAM ibuprofen 600 mg PO Q6H PRN lancets (FreeStyle Lancets) Use 1 lancet once a day losartan 100 mg PO DAILY 90 days metformin 500 mg PO BID 90 days miscellaneous medical supply 1 ea miscellaneous ONCE [id number]-[id number] (Maximum Daily Multivitamin) 1 tab PO DAILY omega-3 fatty acids 1,000 mg PO DAILY tadalafil (Cialis) 20 mg PO DAILY PRN 90 days tramadol 50 mg PO Q6H PRN 90 days Tobacco use date assessed: 02/06/25 Dental Screening Dental Screen Date: 02/06/25 Did you have a dental visit in the last 12 months?: Yes Did you have a dental problem in the last 6 months where you did not have access to dental care?: No Was dental information given to patient?: Patient has dentist HPI HPI Comments History of Present Illness Details The patient is a 64-year-old male presenting for a physical exam. He has a history of colon cancer, with his last colonoscopy performed in July of this year, revealing internal hemorrhoids and diverticulosis. His next colonoscopy is scheduled for 2027. His recent Hemoglobin A1c was 6.2, and his blood pressure is well-controlled at 130/72 mmHg. His current medications include aspirin 81 mg, atorvastatin 20 mg, carvedilol, cyclobenzaprine, hydralazine, hydrochlorothiazide, losartan, metformin, tramadol, and tadalafil. Has obstructive sleep apnea and needs CPAP machine. The patient reports frequently waking up during the night and experiencing a dry mouth. A sleep study was previously performed by neurology, but he was never provided with the recommended device. His father from heart disease, and his mother had COPD and was a smoker. The patient has a history of smoking for 42 years but has since quit. [facility] Medical History Diabetes mellitus TIA (transient ischemic attack) HTN (hypertension) Bleeding hemorrhoids Rash Mass of skin of back Low TSH level GERD (gastroesophageal reflux disease) Ascending aorta dilatation Lumbar degenerative disc disease Pure hypercholesterolemia Erectile dysfunction Essential hypertension Surgical History Hx of hemorrhoidectomy History of colon resection History of colonoscopy History of colon cancer History of back surgery Family History Father Myocardial infarction Mother Hypertension COPD (chronic obstructive pulmonary disease) Daughter Hypertension Heart problem Maternal Grandmother CAD (coronary artery disease) Stroke Paternal Grandfather Myocardial infarction Brother In good health Brother In good health Sister In good health Sister In good health Sister In good health Daughter In good health Daughter In good health Daughter In good health Social History Household Members: None Housing: Apartment Are you a primary home health care worker to a significant other at home: No Do you presently have visiting nurse or other home services: No Alcohol intake: never Patient Tobacco Use Status: Former Tobacco user Tobacco use type: Cigarette Years Smoked: 40 +/- e-Cigarette/Vaping Use: Never Used Second Hand Smoke Exposure: No service: No Current occupational status: disabled Cognitive needs: No Hearing needs: No Vision needs: Yes Questionnaire Thrive Questionnaire Date Thrive assessed: 10/03/24 I am a: Patient What is your living situation today?: I have a steady place to live Within the past 12 months, did the food you bought not last and you didn't have the money to get more?: I choose not to answer this question Within the past 12 months, did you worry whether your food would run out before you got money to buy more?: Often true Do you have trouble paying for medicines?: No Do you have trouble getting transportation to medical appointments?: No Do you have trouble paying your heating and electricity bill?: No Do you have trouble taking care of your child, family member or friend?: No Do you have trouble with day-to-day activities such as bathing, preparing meals, shopping, managing finances, etc.?: No Are you currently unemployed and looking for a job?: I choose not to answer this question Are you interested in more education?: No Please select the resources that you would like help with: None Currently or been in a relationship where the following occur: I choose not to answer THRIVE Score: 1 AUDIT C Alcohol Use Questionnaire (AUDIT-C) 1. How often do you have a drink containing alcohol?: Never 2. How many drinks containing alcohol do you have on a typical day when you are drinking?: 1 or 2 3. How often do you have six or more drinks on one occasion?: Never Total Score: 0 JOSETTE-7 AMB Questionnaire JOSETTE-7 Date JOSETTE - 7 assessed: 05/29/24 Source: Developed by Drs. Handy Allen, Mesha Mcgrath, Willian Pelletier and colleagues, with an educational lacho from [employer]. Review of Systems Const All systems reviewed & are unremarkable except as noted in HPI and below Card Denies chest pain at rest, Denies chest pain with activity, Denies edema, Denies irregular heart rhythm, Denies claudication, Denies dyspnea, Denies dyspnea on exertion, Denies orthopnea, Denies paroxysmal nocturnal dyspnea and Denies slow heart rate Resp Denies cough, Denies dyspnea and Denies dyspnea on exertion Musc Denies atrophy, Denies deformity and Denies limited range of motion Skin/Breast Denies bleeding lesions, Denies changing lesions and Denies rash Physical exam (Primary Care) Vital Signs: Last Vital Signs Temp 97.3 F 02/06/25 13:28 Pulse 76 02/06/25 13:28 Resp 18 02/06/25 13:28 BP 130/72 02/06/25 13:28 Pulse Ox 96 02/06/25 13:28 Oxygen Delivery Method Room Air 02/06/25 13:28 BMI result Body Mass Index 35.2 BMI Assessment/Plan discussion: High BMI High, discussed plan: lifestyle, weight reduction, dietary and physical activity Tobacco/Smoking Status: Tobacco use Status Tobacco use date assessed 02/06/25 02/06/25 13:37 Patient Tobacco Use Status Former Tobacco user 02/06/25 13:32 Tobacco use type Cigarette 02/06/25 13:32 e-Cigarette/Vaping Use Never Used 02/06/25 13:32 Thrive Assessment: Date of Thrive Assessment Date Thrive assessed 10/03/24 02/06/25 13:32 Currently or been in a relationship where the following occur: I choose not to answer HENAR Head: Yes normal to inspection, Yes normocephalic and Yes atraumatic Ears: external ears normal Eyes General: appearance normal, both eyes and all related structures Eyelids: Yes eyelids normal Conjunctivae: conjunctivae normal Neck Neck: Yes normal visual inspection and Yes supple Resp Effort & Inspection: normal respiratory effort Auscultation: clear to auscultation bilaterally Cardio Jugular venous distension: no JVD Rate: regular rate Rhythm: regular rhythm Heart sounds: S1 normal heart sound present and S2 normal heart sound present GI Inspection: Yes normal to inspection Palpation (GI): Soft to palpation and nontender Auscultation: normal bowel sounds Skin General skin exam: no rashes or lesions noted Neuro General: no focal motor deficits Extrem General: Yes full ROM Psych Appearance: grossly normal Coding Level of Care Code Est Pt Prev Care 40-64y(57681) Diagnoses Physical exam Z00.00 Malignant neoplasm of colon, unspecified part of colon C18.9 Colon location: unspecified part of colon Type 2 diabetes mellitus without complication, without long-term current use of insulin E11.9 Diabetes mellitus type: type 2 Diabetes mellitus 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 insulin use: without 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 use Diabetes mellitus complication status: without complication Time Spent (min) 30 Assessment & Plan Assessment & Plan (1) Physical exam: Code(s): Z00.00 - Encounter for general adult medical examination without abnormal findings Category: Medical (2) Colon cancer: Comment: Diagnosed in 2014 and treated with resection in May 2015 Code(s): C18.9 - Malignant neoplasm of colon, unspecified Category: Medical Qualifiers: Colon location: unspecified part of colon Qualified Code(s): C18.9 - Malignant neoplasm of colon, unspecified (3) Diabetes mellitus: Code(s): E11.9 - Type 2 diabetes mellitus without complications Category: Medical Qualifiers: Diabetes mellitus type: type 2 Diabetes mellitus fdc insulin use: without 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 use Diabetes mellitus complication status: without complication Qualified Code(s): E11.9 - Type 2 diabetes mellitus without complications Plan Plan 1. Encounter for general adult medical examination without abnormal findings Z00.00 Repeat in a year. Declines flu vaccine. Orders: Orders AMB Hemoglobin A1c Today E11.9 - Type 2 diabetes mellitus without complications Microalbumin, Random (w Creat) 4 Months R80.9 - Proteinuria, unspecified Vitamin D 25-OH Total 4 Months E55.9 - Vitamin D deficiency, unspecified Complete Blood Count Auto Diff 4 Months D64.9 - Anemia, unspecified IRON PROFILE 4 Months D64.9 - Anemia, unspecified Comprehensive Burkett. Panel Fast 4 Months E11.9 - Type 2 diabetes mellitus without complications Lipid Panel 4 Months E78.5 - Hyperlipidemia, unspecified Medications: New CPAP autoPAP 5-20 cmH2O 1 ea 0RF G47.33 - Obstructive sleep apnea (adult) (pediatric)
== END 2025-02-06 13:55 | disposition home or self-care (01) ==
LOC: HO.HMCH 13:26
PROVIDERS: PCP Internal Medicine; Visit Provider Internal Medicine
DX: Z00.00 Encounter for general adult medical examination without abnormal findings (principal); C18.9 Malignant neoplasm of colon, unspecified; E11.9 Type 2 diabetes mellitus without complications

== ENCOUNTER → 2025-02-06 13:25 | Outpatient (BNVA) | payer OTHER, SELFPAY | PROVIDERS: PCP Internal Medicine; Visit Provider Internal Medicine | DX: Z00.00 Encounter for general adult medical examination without abnormal findings (principal); I10 Essential (primary) hypertension; R68.2 Dry mouth, unspecified; C18.9 Malignant neoplasm of colon, unspecified; E11.9 Type 2 diabetes mellitus without complications; Z79.899 Other long term (current) drug therapy | CPT/HCPCS: 99396 ==

== ENCOUNTER → 2025-02-17 12:30 | Outpatient (REF) | payer OTHER, SELFPAY ==
--- NOTE | 2025-02-17 12:33 | CA_ITS ---
Transthoracic Echocardiogram Patient (Last, First, Middle): Leandro Rodríguez M Gender: M Date of : 1960 Age: 64 Procedure Date: 02/17/2025 Procedure Type: Transthoracic Echocardiogram Location: OP Height: 185.42 cm Weight: 114.31 kg BSA: 2.37 m2 Heart Rate: 60 bpm BP: 130 / 72 mmHg Baby Sitter: SB Referring MD: Wilbert Varela MD Symptoms: I77.810 - Thoracic aortic ectasia Study Quality: Fair but adequate ECG Rhythm: Sinus Conclusions: - The left ventricular systolic function is normal. The calculated ejection fraction is 61% by biplane method. - No obvious valvular pathology seen on this study. - There is mild dilatation of the ascending aorta measuring 4.00 cm. Findings Procedure Information The quality of the study was technically difficult. The study quality is limited by patients body habitus and lung artifact. Left Ventricle Normal left ventricular cavity size. There is normal left ventricular wall thickness. The left ventricular systolic function is normal. The calculated ejection fraction is 61% by biplane method. There is no evidence of regional wall motion abnormalities. Diastolic function is normal for age. Right Ventricle Normal right ventricular cavity size and systolic function. Atria Both atria are normal in size. Aortic Valve There is a normal trileaflet aortic valve. There is no aortic valve stenosis. There is no aortic valve regurgitation. Mitral Valve The mitral valve appears normal. There is no mitral valve regurgitation. There is no mitral valve stenosis. Pulmonic Valve The pulmonic valve is likely normal. Tricuspid Valve There is trace tricuspid valve regurgitation. There is no evidence of pulmonary hypertension. Great Vessels There is mild dilatation of the ascending aorta measuring 4.00 cm. Venous The inferior vena cava is normal in size and collapses greater than 50% with inspiration. Pericardium/Pleural There is no evidence of pericardial effusion. Prior Study Comparison No significant change compared to prior study dated: 12/06/2022. Recommendations, Care & Conclusions No obvious valvular pathology seen on this study. Measurements 2D Linear Measurements IVSd: 0.96 0.6-0.9/0.6-1.0 cm LVIDd: 6.06 3.9-5.3/4.2-5.9 cm LVIDd Index: 2.56 2.4-3.2/2.2-3.1 cm/m2 LVIDs: 4.03 2.0-3.6 cm LVPWd: 1.18 0.7-1.1 cm LA Diam: 4.20 2.7-3.8/3.0-4.0 cm LAIDs Index: 1.77 1.5-2.3 cm/m2 LV Mass: 342.82 67-162/88-224 g LV Mass Index: 144.65 43-95/49-115 g/m2 LVOT Diam: 2.50 3.0+(-)1.3 cm 2D Systolic Function EF 4C: 67.70 >55% EF 2C: 52.40 >55% EF BiP: 61.20 >55% Mitral Valve MV Pk E: 0.62 MV PK A: 0.87 MV Decel Time: 375.00 E/A: 0.70 E'Lateral: 8.49 E'Medial: 4.35 E/E' Med: 14.20 E/E' Lat: 7.30 PHT: 110.00 MVA PHT: 2.00 Decel [place]: 1.65 Aortic Valve AoV Pk Bob: 1.58 AoV Mn Bob: 1.06 AoV VTI: 0.31 AoV Pk Grad: 10.00 Aov Mn Grad: 5.00 NIKI Cont.VTI: 4.14 LVOT LVOT Pk Bob: 1.26 LVOT Mn Bob: 0.86 LVOT VTI: 0.26 LVOT Pk Grad: 6.00 LVOT Mn Grad: 3.00 LVOT Diam: 2.50 LVOT Area: 4.91 Diastolic Function MV Pk E: 0.62 MV Pk A: 0.87 E/A: 0.70 E'Medial: 4.35 E/E' Med: 14.20 E' Laterial: 8.49 E/E' Lat: 7.30 Right Ventricle TAPSE (mm): 21.40 TVS' Bob: 13.50 Tricuspid Valve TR Pk Bob: 2.44 TR Pk Grad: 24.00 RA Press: 3.00 RVSP: 27.00 Great Vessels Aorta Sinus of Valsalva: 3.50 2.0-3.5 cm Ao Asc: 4.00 2.1-3.4 cm Ao Arch: 3.20 Pulmonary Veins Pulm Vein S/D 1.40 Pulmonary Valve PV Pk Bob: 0.83 Peak PV Grad: 3.00 Updated in Other Vendor System with Status of Final Wilbert Varela MD electronically signed on 02/17/2025 4:40:00 PM with status of Final
== END ==
LOC: HO.CARD 12:30
PROVIDERS: PCP Internal Medicine; Visit Provider Internal Medicine
DX: I77.810 Thoracic aortic ectasia (principal)
CPT/HCPCS: 93306

== ENCOUNTER → 2025-02-17 12:33 | Outpatient (BNV) | payer OTHER, SELFPAY | PROVIDERS: PCP Internal Medicine; Visit Provider Internal Medicine | DX: I77.810 Thoracic aortic ectasia (principal) | CPT/HCPCS: 93306 ==